=== PATIENT | female | born 1955 | race African-American/Black ===

== ENCOUNTER → 2016-10-21 | Outpatient (CLI) | payer MEDICARE, MEDICAID | LOC: WI 08:23 | PROVIDERS: ATTEND Internal Medicine | DX: C50.411 Malignant neoplasm of upper-outer quadrant of right female breast (principal); N64.4 Mastodynia; R22.9 Localized swelling, mass and lump, unspecified | CPT/HCPCS: 76642; G0204 ==

== ENCOUNTER → 2016-10-28 | Outpatient (CLI) | payer MEDICARE, MEDICAID | LOC: RAD 09:01 | PROVIDERS: ATTEND Surgery | DX: N64.4 Mastodynia (principal); Z85.3 Personal history of malignant neoplasm of breast ==

== ENCOUNTER → 2017-05-26 | Outpatient (CLI) | payer MEDICARE, MEDICAID ==
--- NOTE | 2017-05-26 19:24 | XCELERA REPORT ---
[address] [address] Transthoracic Echocardiogram Report Name: YURY MCCULLOUGH Age: 62 yrs Gender: Female : 1955 Patient Status: Outpatient Patient Location: Study Date: 05/26/2017 01:56 PM Height: 66 in Weight: 335 lb BSA: 2.5 m2 Reason For Study: HEART FAILURE Ordering Physician: BUTCH DIAZ Performed By: Agnes Mejía Interpretation Summary technicall y poor study, no apical 2 chamber view to assess biplane LVEF. Overall LVEF appears better than 65% (A2C view N/A) and no LV diastolic dysfunction based on Mitral inflow velocities. Mild MR with perhaps mild LA enlargement. RH impossible to assess, not visualised. RVSP not able to derice. Pt is335# at 5'6*. MMode/2D Measurements & Calculations RVDd: 3.0 cm LVIDd: 4.5 cm FS: 36.2 % Ao root diam: 3.5 cm IVSd: 1.2 cm LVIDs: 2.9 cm EDV(Teich): 94.8 ml LVPWd: 1.2 cm ESV(Teich): 32.3 ml Ao root area: 9.9 cm2 EF(Teich): 66.0 % LVOT diam: 2.4 cm LVOT area: 4.6 cm2 Doppler Measurements & Calculations MV E max ericka: MV dec slope: Ao V2 max: LV V1 max P.2 cm/sec 493.9 cm/sec2 125.3 cm/sec 6.2 mmHg MV A max ericka: MV dec time: Ao max PG: LV V1 max: 109.1 cm/sec 0.23 sec 6.3 mmHg 124.0 cm/sec MV E/A: 1.1 SONA(V,D): 4.6 cm2 PA V2 max: 89.5 cm/sec PA max P.2 mmHg Left Ventricle The left ventricle is normal in size. There is mild concentric left ventricular hypertrophy. The left ventricular ejection fraction is normal. Doppler measurements suggest normal left ventricular diastolic function. Not all wall segments were well visualized. There is no thrombus. Right Ventricle The right ventricle is not well visualized secondary to technical limitations. Atria Right atrium not well visualized secondary to technical limitations. The left atrium is mildly dilated. The interatrial septum is intact with no evidence for an atrial septal defect. Mitral Valve The mitral valve is normal in structure and function. There is no evidence of mitral valve prolapse. There is no mitral valve stenosis. There is a mild amount of mitral regurgitation. Aortic Valve The aortic valve is trileaflet. The aortic valve opens well. Cannot exclude aortic valvular vegetation. There is no aortic valve stenosis. No aortic regurgitation is present. Tricuspid Valve The tricuspid valve is not well visualized secondary to technical limitations. No tricuspid regurgitation. Pulmonic Valve The pulmonic valve is not well visualized. There is no pulmonic valvular regurgitation. Great Vessels The aortic root is normal size. Effusions Small pericardial effusion. I WMSI = 1.00 % Normal = 100 Segments Size X - Cannot 2 - 4 - 1-2 small Interpret 1 - Normal Hypokinetic 3 - AkineticDyskinetic 3-5 moderate 5 - 6-14 large Aneurysmal 15-16 diffuse : BUTCH DIAZ > Jeff Tafoya
== END ==
LOC: SP 13:16
PROVIDERS: ATTEND Family Medicine
DX: I50.9 Heart failure, unspecified (principal)
CPT/HCPCS: 93306

== ENCOUNTER → 2017-08-11 | Outpatient (CLI) | payer MEDICARE, MEDICAID ==
--- NOTE | 2017-08-11 12:29 | WOMENS IMAGING REPORT ---
EXAM DESCRIPTION: 3D DX MAMMO BILAT COMPLETED DATE/TIME: 08/11/2017 10:34 am REASON FOR STUDY: MALIGNANT NEOPLASM OF UPPER OUTER QUADRANT C50.411 MALIG NEOPLM OF UPPER-OUTER QU ADRANT OF RIGHT FEMALE COMPARISON: 10/21/2016, 07/20/2016, and 07/17/2015. TECHNIQUE: Standard craniocaudal and mediolateral oblique views of each breast recorded using digita l acquisition and breast tomosynthesis. Additional images of the right breast include true lateral images and compression magnification MLO a nd CC images. LIMITATIONS: None. FINDINGS: RIGHT BREAST MASSES: No suspicious masses. CALCIFICATIONS: No new or suspicious calcifications. ARCHITECTURAL DISTORTION: Stable surgical changes. DEVELOPING DENSITY: None. ASYMMETRY: None noted. OTHER: No other significant findings. LEFT BREAST MASSES: No suspicious masses. CALCIFICATIONS: No new or suspicious calcifications. ARCHITECTURAL DISTORTION: None. DEVELOPING DENSITY: None. ASYMMETRY: None noted. OTHER: No other significant finding. Read with the assistance of CAD: .[facility] - R2 Cenova Version 1.3 .[facility] - R2 Cenova Version 1.3 .[facility] - R2 Cenova Version 2.4 .[facility] - R2 Cenova Version 2.4 .[facility] - R2 [employer]ing Team Leader Version 9.2 IMPRESSION: Stable mammographic appearance of both breasts. Stable surgical changes in the right br east. No worrisome findings. BREAST DENSITY: b. There are scattered areas of fibroglandular density. BIRAD: 2 Benign findings. RECOMMENDATION: RECOMMENDED FOLLOW UP: Post lumpectomy protocol. COMMENT: The patient has been notified of the results by letter per SA requirements. Additional no tification policies are in place for contacting patient with suspicious or incomplete findings. Quality ID #[id number]: The [employer] recommends an annual screening mammogram for women aged 40 years or over. This facility utilizes a reminder system to ensure that all patients receive reminder letters, and/or direct phone calls for appointments. This includes reminders for routine scr eening mammograms, diagnostic mammograms, or other Breast Imaging Interventions when appropriate. Th is patient will be placed in the appropriate reminder system. The [employer] (ACR) has developed recommendations for screening MRI of the breast s in certain patient populations, to be used in conjunction with mammography. Breast MRI surveillanc e may be appropriate for women with more than 20% lifetime risk of developing breast cancer as deter mined by genetic testing, significant family history of the disease, or history of mantle radiation f or Hodgkins Disease. ACR Practice Guidelines 2008. DBT Technology DBT is a type of tomographic mammography. With conventional mammography, overlapping breast tissue ma y make lesions difficult to detect, even with good compression. DBT uses an x-ray tube that rotates a round the breast, taking images at different angles. These images are then combined to create thin sl ices of the breast that the radiologist can view as a 3D reconstruction. The [employer] unit can perform full-field digital mammograms (2D imaging); or DBT (3D imaging); or both, in a combination mode that quickly performs both the mammogram and the tomosynthesis scan while the breast is still compressed. PQRS 6045F: Fluoroscopic imaging is not utilized for breast tomosynthesis. TECHNICAL DOCUMENTATION: FINDING NUMBER: (1) ASSESSMENT: (1) JOB ID: [id number] [employer] All Rights Reserved
== END ==
LOC: WI 10:01
PROVIDERS: ATTEND Internal Medicine
DX: C50.411 Malignant neoplasm of upper-outer quadrant of right female breast (principal)
CPT/HCPCS: G0279; G0204; 77062; 77066

== ENCOUNTER 2017-11-20 14:41 | Inpatient (IN) | payer MEDICARE, MEDICAID ==
--- NOTE | 2017-11-20 15:20 | ER Document Report ---
ED General - General Chief Complaint: Palpitations Stated Complaint: BREATHING PROBLEMS Time Seen by Provider: 11/20/17 15:04 Mode of Arrival: Ambulatory Information source: Patient Notes: 62-year-old female with a history of atrial fibrillation, congestive heart failure, diabetes presents with complaint of heart palpitations and left arm pain. Patient states left arm pain started 2 days prior to arrival. She describes it as an aching intermittent pain that is not worse with movement. She states palpitations started 3 hours prior to arrival while at rest. She denies any chest pain, diaphoresis, lightheadedness. She does admit to nausea and associated shortness of breath which is normal for her and she does not feel it is worsened. Patient denies any recent illnesses. She has been taking her home medications regularly. She does take aspirin daily. Patient denies any new or changes in medication. She does not have current cardiology care. Her primary care physician is Dr. Negrete. TRAVEL OUTSIDE OF THE [place] IN LAST 30 DAYS: No - HPI Onset: Just prior to arrival Onset/Duration: Gradual Quality of pain: Achy Severity: Mild Associated symptoms: Nausea, Shortness of breath - At baseline. denies: Fever, Vomiting - Related Data Allergies/Adverse Reactions: naproxen [From Naprosyn] Allergy (Severe, Verified 11/20/17 15:15) FEELS "ON FIRE" Penicillins Allergy (Intermediate, Verified 11/20/17 15:15) broke out in white blisters niacin [Niacin] Allergy (Mild, Verified 11/20/17 15:15) "on fire" oxycodone HCl [From Percocet] Allergy (Mild, Verified 11/20/17 15:15) itchy propoxyphene napsylate [From Darvocet-N 100] Allergy (Mild, Verified 11/20/17 15 :15) itchy Past Medical History - Social History Smoking Status: Never Smoker Chew tobacco use (# tins/day): No Frequency of alcohol use: None Drug Abuse: None Family History: Reviewed & Not Pertinent, Other - No FH of DVT/PE Patient has suicidal ideation: No Patient has homicidal ideation: No - Past Medical History Cardiac Medical History: Reports: Hx Atrial Fibrillation, Hx Congestive Heart Failure, Hx Coronary Artery Disease, Hx Heart Attack - aug, Hx Hypercholesterolemia, Hx Hypertension Pulmonary Medical History: Denies: Hx Asthma, Hx Bronchitis, Hx COPD, Hx Pneumonia Neurological Medical History: Denies: Hx Cerebrovascular Accident, Hx Seizures Endocrine Medical History: Reports: Hx Diabetes Mellitus Type 2 Renal/ Medical History: Denies: Hx Peritoneal Dialysis Malignancy Medical History: Reports: Hx Breast Cancer Musculoskeltal Medical History: Reports Hx Arthritis - degenerative Psychiatric Medical History: Reports: Hx Depression Past Surgical History: Reports: Hx Breast Surgery - right lumpectomy, Hx Cardiac Catheterization - stent, Hx Section - x 2, Hx Orthopedic Surgery - GANGLION CYST. Denies: Hx Pacemaker - Immunizations Hx Diphtheria, Pertussis, Tetanus Vaccination: No Hx Pneumococcal Vaccination: 07/07/12 Review of Systems - Review of Systems Constitutional: Malaise. denies: Fever, Weight gain EENT: No symptoms reported Cardiovascular: Palpitations Respiratory: Short of breath Gastrointestinal: No symptoms reported Musculoskeletal: Other - Left arm pain Neurological/Psychological: No symptoms reported Physical Exam - Vital signs Vitals: Temp Pulse Resp BP Pulse Ox 98.4 F 105 H 18 178/79 H 98 11/20/17 14:45 11/20/17 14:45 11/20/17 14:45 11/20/17 14:45 11/20/17 14:45 Interpretation: Normal, Hypertensive, Tachycardic. No: Hypoxic - General General appearance: Appears well, Alert, Other - obese In distress: None - Respiratory Respiratory status: No respiratory distress. No: Respiratory distress Chest status: Nontender Breath sounds: Normal Chest palpation: Normal - Cardiovascular Rhythm: Irregularly irregular Heart sounds: Normal auscultation Murmur: No Pulses: Normal: Radial, Dorsalis pedis Normal capillary refill: Yes - Extremities General upper extremity: Normal inspection, Nontender, Normal color, Normal ROM , Normal temperature General lower extremity: Normal inspection, Nontender, Edema, Normal color, Normal ROM, Normal temperature, Normal weight bearing, Other - Nonpitting edema. No: Airam's sign Course - Re-evaluation Re-evalutation: 11/20/17 17:07 Spoke to family and patient regarding admission for CHF exacerbation and ACS rule out. They are agreeable at this time. Dr. Ruiz pagejeffrey. 11/20/17 22:06 Bedside ultrasound performed and showed no pericardial effusion. 62-year-old female with history of A. fib, congestive heart failure, CAD, diabetes presents with complaint of palpitations and left arm pain. Upon arrival vitals were reviewed. Patient is tachycardic initially. EKG was obtained and showed the patient to be in atrial fibrillation with controlled rate. Exam is significant for a morbidly obese female with nonpitting peripheral edema. She does not appear toxic or dehydrated and she is in no acute distress. Significant laboratory findings include an elevated BNP. She did receive IV Lasix. Because of the patient's comorbidities and previous AL the patient's complaint of nausea, increasing shortness of breath and left arm pain could be an anginal equivalent and warrants further workup. Patient is agreeable to admission. Laboratory 11/20/17 11/20/17 11/20/17 15:00 15:00 15:00 WBC 6.2 RBC 4.85 Hgb 13.2 Hct 40.7 MCV 84 MCH 27.2 MCHC 32.5 RDW 14.0 Plt Count 213 Seg Neutrophils % 60.3 Lymphocytes % 27.1 Monocytes % 10.1 Eosinophils % 1.6 Basophils % 0.9 Absolute Neutrophils 3.7 Absolute Lymphocytes 1.7 Absolute Monocytes 0.6 Absolute Eosinophils 0.1 Absolute Basophils 0.1 Sodium 142.9 Potassium 4.2 Chloride 111 H Carbon Dioxide 24 Anion Gap 8 BUN 19 Creatinine 0.97 Est GFR ( Amer) > 60 Est GFR (Non-Af Amer) 58 L Glucose 152 H POC Glucose Calcium 9.4 Phosphorus 2.8 Magnesium 1.8 Total Bilirubin 0.3 Direct Bilirubin 0.3 Neonat Total Bilirubin Not Reportable Neonat Direct Bilirubin Not Reportable Neonat Indirect Bili Not Reportable AST 18 ALT 17 Alkaline Phosphatase 65 Creatine Kinase 74 CK-MB (CK-2) 0.44 Troponin I < 0.012 NT-Pro-B Natriuret Pep 2010 H Total Protein 6.2 L Albumin 3.6 TSH Urine Color Urine Appearance Urine pH Ur Specific [place] Urine Protein Urine Glucose (UA) Urine Ketones Urine Blood Urine Nitrite Urine Bilirubin Urine Urobilinogen Ur Leukocyte Esterase Urine WBC (Auto) Urine RBC (Auto) Urine Bacteria (Auto) Squamous Epi Cells Auto Urine Mucus (Auto) Urine Ascorbic Acid 11/20/17 11/20/17 11/20/17 15:00 15:52 19:09 WBC RBC Hgb Hct MCV MCH MCHC RDW Plt Count Seg Neutrophils % Lymphocytes % Monocytes % Eosinophils % Basophils % Absolute Neutrophils Absolute Lymphocytes Absolute Monocytes Absolute Eosinophils Absolute Basophils Sodium Potassium Chloride Carbon Dioxide Anion Gap BUN Creatinine Est GFR ( Amer) Est GFR (Non-Af Amer) Glucose POC Glucose Calcium Phosphorus Magnesium Total Bilirubin Direct Bilirubin Neonat Total Bilirubin Neonat Direct Bilirubin Neonat Indirect Bili AST ALT Alkaline Phosphatase Creatine Kinase CK-MB (CK-2) Troponin I 0.013 NT-Pro-B Natriuret Pep Total Protein Albumin TSH 0.98 Urine Color YELLOW Urine Appearance CLEAR Urine pH 5.0 Ur Specific [place] 1.016 Urine Protein NEGATIVE Urine Glucose (UA) NEGATIVE Urine Ketones NEGATIVE Urine Blood NEGATIVE Urine Nitrite NEGATIVE Urine Bilirubin NEGATIVE Urine Urobilinogen 2.0 H Ur Leukocyte Esterase NEGATIVE Urine WBC (Auto) 10 Urine RBC (Auto) 1 Urine Bacteria (Auto) 3+ Squamous Epi Cells Auto 3 Urine Mucus (Auto) RARE Urine Ascorbic Acid NEGATIVE 11/20/17 11/20/17 11/20/17 19:09 19:09 21:39 WBC RBC Hgb Hct MCV MCH MCHC RDW Plt Count Seg Neutrophils % Lymphocytes % Monocytes % Eosinophils % Basophils % Absolute Neutrophils Absolute Lymphocytes Absolute Monocytes Absolute Eosinophils Absolute Basophils Sodium Potassium Chloride Carbon Dioxide Anion Gap BUN Creatinine Est GFR ( Amer) Est GFR (Non-Af Amer) Glucose POC Glucose 110 Calcium Phosphorus Magnesium Total Bilirubin Direct Bilirubin Neonat Total Bilirubin Neonat Direct Bilirubin Neonat Indirect Bili AST ALT Alkaline Phosphatase Creatine Kinase 70 CK-MB (CK-2) 0.47 Troponin I Cancelled NT-Pro-B Natriuret Pep Total Protein Albumin TSH Urine Color Urine Appearance Urine pH Ur Specific [place] Urine Protein Urine Glucose (UA) Urine Ketones Urine Blood Urine Nitrite Urine Bilirubin Urine Urobilinogen Ur Leukocyte Esterase Urine WBC (Auto) Urine RBC (Auto) Urine Bacteria (Auto) Squamous Epi Cells Auto Urine Mucus (Auto) Urine Ascorbic Acid Chest X-Ray 11/20/17 15:15 IMPRESSION: HEART ENLARGED WITHOUT FAILURE. NO OTHER SIGNIFICANT RADIOGRAPHIC FINDING IN THE CHEST. - Vital Signs Vital signs: Temp Pulse Resp BP Pulse Ox 97.7 F 72 17 174/93 H 100 11/20/17 21:35 11/20/17 21:35 11/20/17 21:35 11/20/17 21:35 11/20/17 21:35 - Laboratory Result Diagrams: 11/20/17 15:00 11/20/17 15:00 Laboratory results interpreted by me: 11/20/17 11/20/17 11/20/17 15:00 15:00 15:52 Chloride 111 H Est GFR (Non-Af Amer) 58 L Glucose 152 H NT-Pro-B Natriuret Pep 2010 H Total Protein 6.2 L Urine Urobilinogen 2.0 H Discharge - Discharge Clinical Impression: Shortness of breath, Palpitations, Left arm pain, Elevated brain natriuretic peptide (BNP) level CHF exacerbation Qualifiers: Heart failure type: unspecified Qualified Code(s): I50.9 - Heart failure, unspecified Condition: Good Disposition: ADMITTED OBSERVATION Admitting Provider: Sara Unit Admitted: Telemetry
[2017-11-20 15:32] LABS: ABSOLUTE BASOPHILS # (AUTO) 0.1 10^3/uL (0.0-0.2); ABSOLUTE EOSINOPHILS # (AUTO) 0.1 10^3/uL (0.0-0.6); ABSOLUTE LYMPHOCYTES (AUTO) 1.7 10^3/uL (0.5-4.7); ABSOLUTE MONOCYTES (AUTO) 0.6 10^3/uL (0.1-1.4); ABSOLUTE NEUT (AUTO) 3.7 10^3/uL (1.7-8.2); BASOPHILS % (AUTO) 0.9 % (0-2); EOSINOPHILS % (AUTO) 1.6 % (0-6); HEMATOCRIT 40.7 % (36.0-47.0); HEMOGLOBIN 13.2 g/dL (12.0-15.5); LYMPHOCYTES % (AUTO) 27.1 % (13-45); MEAN CORPUSCULAR HEMOGLOBIN 27.2 pg (27.0-33.4); MEAN CORPUSCULAR HGB CONC 32.5 g/dL (32.0-36.0); MEAN CORPUSCULAR VOLUME 84 fl (80-97); MONOCYTES % (AUTO) 10.1 % (3-13); PLATELET COUNT 213 10^3/uL (150-450); RED BLOOD COUNT 4.85 10^6/uL (3.72-5.28); SEGMENTED NEUTROPHILS % (AUTO) 60.3 % (42-78); TOTAL CELLS COUNTED % (AUTO) 100 %; WHITE BLOOD COUNT 6.2 10^3/uL (4.0-10.5)
--- NOTE | 2017-11-20 15:36 | RADIOLOGY REPORT (SQ) ---
EXAM DESCRIPTION: CHEST SINGLE VIEW COMPLETED DATE/TIME: 11/20/2017 3:25 pm REASON FOR STUDY: palpitations COMPARISON: 12/27/2013 NUMBER OF VIEWS: One view. TECHNIQUE: Single frontal radiographic view of the chest acquired. LIMITATIONS: None. FINDINGS: LUNGS AND PLEURA: No opacities, masses or pneumothorax. No pleural effusion. MEDIASTINUM AND HILAR STRUCTURES: No masses. Contour normal. HEART AND VASCULAR STRUCTURES: Heart enlarged without failure. Normal vasculature. BONES: No acute findings. HARDWARE: None in the chest. OTHER: No other significant finding. IMPRESSION: HEART ENLARGED WITHOUT FAILURE. NO OTHER SIGNIFICANT RADIOGRAPHIC FINDING IN THE CHEST. TECHNICAL DOCUMENTATION: JOB ID: [id number] [employer]- All Rights Reserved Reading location - IP/workstation name: [email or web address]
[2017-11-20 15:50] LABS: ALANINE AMINOTRANSFERASE 17 U/L (9-52); ALBUMIN 3.6 g/dL (3.5-5.0); ALKALINE PHOSPHATASE 65 U/L (38-126); ANION GAP 8 (5-19); ASPARTATE AMINO TRANSFERASE 18 U/L (14-36); BILIRUBIN,DIRECT 0.3 mg/dL (0.0-0.4); BILIRUBIN,TOTAL 0.3 mg/dL (0.2-1.3); BLOOD UREA NITROGEN 19 mg/dL (7-20); CALCIUM 9.4 mg/dL (8.4-10.2); CARBON DIOXIDE 24 mmol/L (22-30); CHLORIDE 111 mmol/L (98-107); CREATINE KINASE 74 U/L (30-135); GLUCOSE 152 mg/dL (75-110); PHOSPHORUS 2.8 mg/dL (2.5-4.5); POTASSIUM 4.2 mmol/L (3.6-5.0); SODIUM 142.9 mmol/L (137-145); TOTAL PROTEIN 6.2 g/dL (6.3-8.2)
[2017-11-20 16:02] LABS: CREATINE KINASE MB 0.44 ng/mL (<4.55); NT PRO BNP 2010 pg/mL (5-900)
[2017-11-20 16:10] LABS: APPEARANCE,URINE CLEAR; BILIRUBIN,URINE NEGATIVE (NEGATIVE); COLOR,URINE YELLOW; GLUCOSE, URINE NEGATIVE (NEGATIVE); KETONES,URINE NEGATIVE (NEGATIVE); LEUKOCYTE ESTERASE,URINE NEGATIVE (NEGATIVE); NITRITE,URINE NEGATIVE (NEGATIVE); PROTEIN,URINE NEGATIVE (NEGATIVE); URINE SPECIFIC GRAVITY 1.016
[2017-11-20 16:13] LABS: TROPONIN I < 0.012 ng/mL
--- NOTE | 2017-11-20 16:26 | EKG REPORT ---
SEVERITY:- ABNORMAL ECG - ATRIAL FIBRILLATION, V-RATE 64-123 VENTRICULAR PREMATURE COMPLEX LEFT AXIS DEVIATION PROBABLE LVH WITH SECONDARY REPOL ABNRM : Confirmed by: Jeff Tafoya MD 20-Nov-2017 16:25:25
[2017-11-20] MEDS ORDERED: FUROSEMIDE INJ/PF 40 MG/4 ML SDV IV ONE (17:00)
--- NOTE | 2017-11-20 19:10 | PDOC H&P ---
History of Present Illness Admission Date/PCP: 11/20/17 17:26 KATHRYN DIAZ MD Patient complains of: Worsening shortness of breath and palpitation History of Present Illness: YURY MCCULLOUGH is a 62 year old female of Dr. Kathryn Diaz who presented to the ED earlier today with worsening shortness of breath and palpitation over last 3-4 days. Patient reported compliance with her medication and dietary restrictions. She reported associated PND and sleeping in recliner chair due to difficulty sleeping supine. She reported new onset left upper extremities pain but denies any chest pain, diaphoresis, lightheadedness. She has chronic bilateral leg swelling. Patient reported nausea but vomiting. No diarrhea but admitted to medication related constipation. Her morbidities include chronic Atrial fibrillation, Congestive Heart Failure, Hypertension, CAD with old [place] and stent angioplasty, Diabetes Mellitus Type 2, Hypercholesterolemia, Depression, Breast cancer s/p lumpectomy, and Morbid obesity. Her initial evaluation in the ED was significant for elevated BNP and concern for acute decompensated CHF. She was treated with IV Lasix and she reported some improvement at the time of my evaluation. Past Medical History Cardiac Medical History: Reports: Atrial Fibrillation, Congestive Heart Failure , Coronary Artery Disease, Myocardial Infarction - aug, Hyperlipidema, Hypertension Pulmonary Medical History: Denies: Asthma, Bronchitis, Chronic Obstructive Pulmonary Disease (COPD), Pneumonia Neurological Medical History: Denies: Seizures Endocrine Medical History: Reports: Diabetes Mellitus Type 2 Malignancy Medical History: Reports: Breast Cancer Musculoskeltal Medical History: Reports: Arthritis - degenerative Psychiatric Medical History: Reports: Depression Hematology: Denies: Anemia Past Surgical History Past Surgical History: Reports: Cardiac Catheterization - stent, Section - x 2, Orthopedic Surgery - G[facility]ST Denies: Pacemaker Social History Smoking Status: Never Smoker Family History Family History: Reviewed & Not Pertinent, Other - No FH of DVT/PE Parental Family History Reviewed: Yes Children Family History Reviewed: Yes Sibling(s) Family History Reviewed.: Yes Medication/Allergy Home Medications: Atorvastatin Calcium [Lipitor 40 mg Tablet] 40 mg PO QHS 06/10/12 Clonidine HCl [Catapres 0.3 mg Tablet] 0.3 mg PO Q8H 06/10/12 Hydralazine HCl [Apresoline 50 mg Tablet] 25 mg PO QID 06/10/12 Hydrochlorothiazide 25 mg PO DAILY 06/10/12 Insulin Aspart [Novolog] 30 unit SQ TID 06/10/12 Insulin Glargine,Hum.rec.anlog [Lantus] 40 unit SQ QHS 06/10/12 Magnesium Oxide 400 mg PO DAILY 06/10/12 Omeprazole 20 mg PO DAILY 06/10/12 Valsartan [Diovan] 320 mg PO DAILY 06/10/12 Metformin HCl [Glumetza] 1,000 mg PO BID 11/03/12 Tamoxifen Citrate [Nolvadex 10 mg Tablet] 20 mg PO DAILY 01/09/13 Aspirin [Aspirin 81 mg Chewable Tablet] 81 mg PO DAILY 03/14/13 Potassium Chloride [Klor-Con 10 Meq Tablet.sa] 10 meq PO DAILY 03/14/13 Diltiazem HCl [Diltzac Er] 360 mg PO DAILY 03/31/13 Furosemide [Lasix 20 mg Tablet] 20 mg PO BID 03/31/13 Warfarin Sodium [Coumadin] 14 mg PO DAILY 03/31/13 Metoprolol Succinate [Toprol XL 100 mg Tablet] 100 mg PO DAILY 02/25/15 Allergies/Adverse Reactions: naproxen [From Naprosyn] Allergy (Severe, Verified 11/20/17 15:15) FEELS "ON FIRE" Penicillins Allergy (Intermediate, Verified 11/20/17 15:15) broke out in white blisters niacin [Niacin] Allergy (Mild, Verified 11/20/17 15:15) "on fire" oxycodone HCl [From Percocet] Allergy (Mild, Verified 11/20/17 15:15) itchy propoxyphene napsylate [From Darvocet-N 100] Allergy (Mild, Verified 11/20/17 15 :15) itchy Review of Systems Constitutional: ABSENT: chills, fever(s), headache(s), weight gain, weight loss Eyes: ABSENT: visual disturbances Ears: ABSENT: hearing changes Nose, Mouth, and Throat: ABSENT: as per HPI, headache(s), mouth pain, sore throat, vertigo, other Cardiovascular: PRESENT: dyspnea on exertion, edema, orthropnea, palpitations. ABSENT: chest pain Respiratory: PRESENT: dyspnea. ABSENT: cough, hemoptysis, sputum Gastrointestinal: PRESENT: nausea. ABSENT: as per HPI, abdominal pain, bloating , coffee ground emesis, constipation, diarrhea, dysphagia, heartburn, hematemesis, hematochezia, melena, vomiting, other Genitourinary: ABSENT: dysuria, hematuria Musculoskeletal: ABSENT: joint swelling Integumentary: ABSENT: diaphoresis, rash, wounds Neurological: ABSENT: abnormal gait, abnormal speech, confusion, dizziness, focal weakness, syncope Endocrine: ABSENT: cold intolerance, heat intolerance, polydipsia, polyuria Hematologic/Lymphatic: ABSENT: easy bleeding, easy bruising, lymphadenopathy Allergic/Immunologic: ABSENT: seasonal rhinorrhea Physical Exam Vital Signs: Temp Pulse Resp BP Pulse Ox 98.4 F 105 H 16 144/74 H 97 11/20/17 14:45 11/20/17 14:45 11/20/17 18:01 11/20/17 18:01 11/20/17 18:01 General appearance: PRESENT: mild distress - due to dyspnea, morbidly obese Head exam: PRESENT: atraumatic, normocephalic Eye exam: PRESENT: conjunctiva pink, EOMI, PERRLA. ABSENT: scleral icterus Ear exam: PRESENT: normal external ear exam Mouth exam: PRESENT: moist, tongue midline Throat exam: ABSENT: post pharyngeal erythema, tonsillar erythema, tonsillar exudate, tonsillogmegaly, other Neck exam: PRESENT: full ROM. ABSENT: carotid bruit, JVD, lymphadenopathy, thyromegaly Respiratory exam: PRESENT: clear to auscultation johanna, decreased breath sounds - at lung bases Cardiovascular exam: PRESENT: irregular rhythm, +S1, +S2. ABSENT: diastolic murmur, rubs, systolic murmur Vascular exam: PRESENT: normal capillary refill. ABSENT: pallor GI/Abdominal exam: PRESENT: normal bowel sounds, soft. ABSENT: distended, guarding, mass, organolmegaly, rebound, tenderness Rectal exam: PRESENT: deferred Extremities exam: PRESENT: pedal edema - bilateral chronic edema Musculoskeletal exam: PRESENT: full ROM Neurological exam: PRESENT: alert, awake, oriented to person, oriented to place , oriented to time, oriented to situation, CN II-XII grossly intact. ABSENT: motor sensory deficit Psychiatric exam: PRESENT: appropriate affect, normal mood. ABSENT: homicidal ideation, suicidal ideation Skin exam: PRESENT: dry, intact, warm. ABSENT: cyanosis, rash Results Laboratory Results: I reviewed her lab results on [employer] and form significant portion of my decision making. Impressions: Chest X-Ray 11/20/17 15:15 IMPRESSION: HEART ENLARGED WITHOUT FAILURE. NO OTHER SIGNIFICANT RADIOGRAPHIC FINDING IN THE CHEST. Assessment & Plan - Diagnosis (1) CHF, acute on chronic Qualifiers: Heart failure type: unspecified Qualified Code(s): I50.9 - Heart failure, unspecified Plan: See covering attending physician orders. (2) Left arm pain Is this a current diagnosis for this admission?: Yes Plan: See covering attending physician orders. (3) CAD S/P percutaneous coronary angioplasty Is this a current diagnosis for this admission?: Yes Plan: See covering attending physician orders. (4) Old myocardial infarction Is this a current diagnosis for this admission?: Yes Plan: See covering attending physician orders. (5) Chronic atrial fibrillation Is this a current diagnosis for this admission?: Yes Plan: See covering attending physician orders. (6) Hypertension Qualifiers: Hypertension type: essential hypertension Qualified Code(s): I10 - Essential (primary) hypertension Is this a current diagnosis for this admission?: Yes Plan: See covering attending physician orders. (7) Diabetes mellitus type 2 in obese Is this a current diagnosis for this admission?: Yes Plan: See covering attending physician orders. (8) Hyperlipidemia associated with type 2 diabetes mellitus Is this a current diagnosis for this admission?: Yes Plan: See covering attending physician orders. (9) Morbid (severe) obesity with alveolar hypoventilation Is this a current diagnosis for this admission?: Yes Plan: See covering attending physician orders. (10) Depression Qualifiers: Depression Type: major depressive disorder Is this a current diagnosis for this admission?: Yes Plan: See covering attending physician orders. - Time Time Spent: 50 to 70 Minutes Medications reviewed and adjusted accordingly: Yes Anticipated discharge: Home with Homehealth Within: Other - Inpatient Certification Based on my medical assessment, after consideration of the patient's comorbidities, presenting symptoms, or acuity I expect that the services needed warrant INPATIENT care.: Yes I certify that my determination is in accordance with my understanding of Medicare's requirements for reasonable and necessary INPATIENT services [42 CFR 412.3e].: Yes Medical Necessity: Need Close Monitoring Due to Risk of Patient Decompensation, Need For Continuous Telemetry Monitoring, Need for Nebulizer Therapy and Monitoring of Response, Risk of Complication if Not Cared For in Hospital Post Hospital Care: D/C Abalone Diver Documentation - Plan Summary Plan Summary: See covering attending physician orders.
[2017-11-20] MEDS ORDERED: INSULIN LISPRO 100 UNIT/ML 3 ML VIAL SUBCUT PRN (19:12)
[2017-11-20] MEDS ORDERED: DEXTROSE 50%-WATER 25 GM/50 ML DISP.SYRIN IV PRN ×2 (19:12)
[2017-11-20] MEDS ORDERED: DEXTROSE 40% GEL 15 GM TUBE PO PRN ×2 (19:12)
[2017-11-20] MEDS ORDERED: GLUCAGON,HUMAN RECOMB 1 MG INJ IM PRN (19:12)
[2017-11-20 22:24] LABS: INTERNATIONAL RATION (INR) 2.17; PARTIAL THROMBOPLASTIN TIME 36.5 SEC (23.5-35.8); PROTHROMBIN TIME 25.3 SEC (11.4-15.4)
[2017-11-20] MEDS ORDERED: METOPROLOL TARTRATE 100 MG TABLET PO ONE (23:59)
[2017-11-20] MEDS ORDERED: ATORVASTATIN CALCIUM 40 MG TABLET PO ONE (23:59)
[2017-11-20] MEDS ORDERED: INSULIN GLARGINE,HUM.REC.ANLOG 1,000 UNIT/10 ML UNIT SUBCUT ONE (23:59)
[2017-11-20] MEDS ORDERED: WARFARIN SODIUM 5 MG TABLET PO ONE (23:59)
[2017-11-20] MEDS ORDERED: HYDRALAZINE HCL 25 MG TABLET PO ONE (23:59)
[2017-11-20] MEDS ORDERED: CLONIDINE HCL 0.1 MG TABLET PO ONE (23:59)
[2017-11-20] MEDS ORDERED: VALSARTAN 160 MG TABLET PO ONE (23:59)
[2017-11-21 02:08] LABS: CREATINE KINASE MB 0.58 ng/mL (<4.55)
[2017-11-21 02:09] LABS: TROPONIN I < 0.012 ng/mL
[2017-11-21] MEDS: CLONIDINE HCL 0.1 MG TABLET PO SCH ×3 (05:16→21:30)
[2017-11-21] MEDS ORDERED: LANSOPRAZOLE 30 MG TAB.RAP.DR PO SCH (06:00)
[2017-11-21 06:15] LABS: ABSOLUTE BASOPHILS # (AUTO) 0.1 10^3/uL (0.0-0.2); ABSOLUTE EOSINOPHILS # (AUTO) 0.1 10^3/uL (0.0-0.6); ABSOLUTE LYMPHOCYTES (AUTO) 1.7 10^3/uL (0.5-4.7); ABSOLUTE MONOCYTES (AUTO) 0.9 10^3/uL (0.1-1.4); ABSOLUTE NEUT (AUTO) 4.1 10^3/uL (1.7-8.2); HEMATOCRIT 37.6 % (36.0-47.0); HEMOGLOBIN 12.1 g/dL (12.0-15.5); LYMPHOCYTES % (AUTO) 24.7 % (13-45); MEAN CORPUSCULAR HEMOGLOBIN 27.1 pg (27.0-33.4); MEAN CORPUSCULAR HGB CONC 32.3 g/dL (32.0-36.0); MEAN CORPUSCULAR VOLUME 84 fl (80-97); MONOCYTES % (AUTO) 12.5 % (3-13); PLATELET COUNT 191 10^3/uL (150-450); RED BLOOD COUNT 4.48 10^6/uL (3.72-5.28); RED CELL DISTRIBUTION WIDTH 14.2 % (11.5-14.0); SEGMENTED NEUTROPHILS % (AUTO) 59.8 % (42-78); TOTAL CELLS COUNTED % (AUTO) 100 %; WHITE BLOOD COUNT 6.9 10^3/uL (4.0-10.5)
[2017-11-21 06:59] LABS: CREATINE KINASE MB 0.41 ng/mL (<4.55); TROPONIN I 0.013 ng/mL
[2017-11-21 07:21] LABS: ALANINE AMINOTRANSFERASE 22 U/L (9-52); ALBUMIN 3.3 g/dL (3.5-5.0); ALKALINE PHOSPHATASE 52 U/L (38-126); ANION GAP 10 (5-19); ASPARTATE AMINO TRANSFERASE 15 U/L (14-36); BILIRUBIN,DIRECT 0.1 mg/dL (0.0-0.4); BILIRUBIN,TOTAL 0.4 mg/dL (0.2-1.3); BLOOD UREA NITROGEN 20 mg/dL (7-20); CALCIUM 9.6 mg/dL (8.4-10.2); CARBON DIOXIDE 24 mmol/L (22-30); CHLORIDE 108 mmol/L (98-107); CHOLESTEROL 135.78 mg/dL (0-200); CREATINE KINASE 70 U/L (30-135); GLUCOSE 127 mg/dL (75-110); POTASSIUM 4.2 mmol/L (3.6-5.0); SODIUM 141.6 mmol/L (137-145); TOTAL PROTEIN 5.4 g/dL (6.3-8.2); TRIGLYCERIDES 136 mg/dL (<150)
[2017-11-21 07:32] LABS: DIRECT LDL 80 mg/dL (<100)
[2017-11-21] MEDS: METFORMIN HCL 500 MG TABLET PO SCH ×2 (08:37→17:34)
[2017-11-21] MEDS: INSULIN LISPRO 100 UNIT/ML 3 ML VIAL SUBCUT SCH ×3 (08:37→17:34)
[2017-11-21] MEDS: MAGNESIUM OXIDE 400 MG TABLET PO SCH (09:08)
[2017-11-21] MEDS: POTASSIUM CHLORIDE 10 MEQ TABLET.SA PO SCH (09:08)
[2017-11-21] MEDS: METOPROLOL TARTRATE 100 MG TABLET PO SCH ×2 (09:09→21:30)
[2017-11-21] MEDS: ASPIRIN 81 MG TABLET, CHEWABLE PO SCH (09:09)
[2017-11-21] MEDS: LANSOPRAZOLE 15 MG TAB.RAP.DR PO SCH (09:10)
[2017-11-21] MEDS: HYDRALAZINE HCL 25 MG TABLET PO SCH ×2 (09:10→21:30)
[2017-11-21] MEDS: VALSARTAN 160 MG TABLET PO SCH (09:10)
[2017-11-21] MEDS ORDERED: INSULIN ASPART 30 UNIT SQ SCH (10:00)
[2017-11-21] MEDS: ACETAMINOPHEN 325 MG TABLET PO PRN (15:42)
--- NOTE | 2017-11-21 17:13 | PDOC PROGRESS REPORT ---
Subjective Progress Note for:: 11/21/17 Subjective:: No chest pain. Left arm pain resolved. No difficulty with breathing. N o nausea , vomiting or abdominal pain. Noncompliance with dietary choice noted by nursing staff. Reason For Visit: ACUTE ON CHRONIC CHF, LEFT ARM PAIN R/O ACS Physical Exam Vital Signs: Temp Pulse Resp BP Pulse Ox 98.1 F 85 20 126/64 H 99 11/21/17 15:20 11/21/17 15:20 11/21/17 15:20 11/21/17 15:20 11/21/17 15:20 Intake & Output 11/20/17 11/21/17 11/22/17 06:59 06:59 06:59 Intake Total 200 Output Total 400 Balance -200 Weight 152.6 kg General appearance: PRESENT: no acute distress, morbidly obese Head exam: PRESENT: atraumatic, normocephalic Eye exam: PRESENT: conjunctiva pink, EOMI, PERRLA. ABSENT: scleral icterus Mouth exam: PRESENT: moist Respiratory exam: PRESENT: clear to auscultation johanna, decreased breath sounds - at lung bases Cardiovascular exam: PRESENT: RRR. ABSENT: diastolic murmur, rubs, systolic murmur Vascular exam: PRESENT: normal capillary refill. ABSENT: pallor GI/Abdominal exam: PRESENT: normal bowel sounds, soft. ABSENT: distended, guarding, mass, organolmegaly, rebound, tenderness Extremities exam: PRESENT: pedal edema - bilateral with chronic stasis skin changes Neurological exam: PRESENT: alert, awake, oriented to person, oriented to place , oriented to time, oriented to situation, CN II-XII grossly intact. ABSENT: motor sensory deficit Psychiatric exam: PRESENT: appropriate affect, normal mood. ABSENT: homicidal ideation, suicidal ideation Skin exam: PRESENT: dry, intact, warm. ABSENT: cyanosis, rash Results Laboratory Results: 11/21/17 05:58 11/21/17 05:58 11/21/17 11/21/17 05:58 05:58 WBC 6.9 RBC 4.48 Hgb 12.1 Hct 37.6 MCV 84 MCH 27.1 MCHC 32.3 RDW 14.2 H Plt Count 191 Seg Neutrophils % 59.8 Lymphocytes % 24.7 Monocytes % 12.5 Eosinophils % 2.0 Basophils % 1.0 Absolute Neutrophils 4.1 Absolute Lymphocytes 1.7 Absolute Monocytes 0.9 Absolute Eosinophils 0.1 Absolute Basophils 0.1 Sodium 141.6 Potassium 4.2 Chloride 108 H Carbon Dioxide 24 Anion Gap 10 BUN 20 Creatinine 0.98 Est GFR ( Amer) > 60 Est GFR (Non-Af Amer) 58 L Glucose 127 H Calcium 9.6 Total Bilirubin 0.4 AST 15 ALT 22 Alkaline Phosphatase 52 Total Protein 5.4 L Albumin 3.3 L Triglycerides 136 Cholesterol 135.78 LDL Cholesterol Direct 80 VLDL Cholesterol 27.0 HDL Cholesterol 36 L 11/20/17 11/20/17 11/20/17 19:09 19:09 19:09 Creatine Kinase 70 CK-MB (CK-2) 0.47 Troponin I 0.013 Cancelled 11/21/17 11/21/17 11/21/17 01:29 01:29 05:58 Creatine Kinase 79 70 CK-MB (CK-2) 0.58 Troponin I < 0.012 11/21/17 05:58 Creatine Kinase CK-MB (CK-2) 0.41 Troponin I 0.013 Impressions: Chest X-Ray 11/20/17 15:15 IMPRESSION: HEART ENLARGED WITHOUT FAILURE. NO OTHER SIGNIFICANT RADIOGRAPHIC FINDING IN THE CHEST. Assessment & Plan - Diagnosis (1) CHF, acute on chronic Qualifiers: Heart failure type: unspecified Qualified Code(s): I50.9 - Heart failure, unspecified (2) Left arm pain Is this a current diagnosis for this admission?: Yes (3) CAD S/P percutaneous coronary angioplasty Is this a current diagnosis for this admission?: Yes (4) Old myocardial infarction Is this a current diagnosis for this admission?: Yes (5) Chronic atrial fibrillation Is this a current diagnosis for this admission?: Yes (6) Hypertension Qualifiers: Hypertension type: essential hypertension Qualified Code(s): I10 - Essential (primary) hypertension Is this a current diagnosis for this admission?: Yes (7) Diabetes mellitus type 2 in obese Is this a current diagnosis for this admission?: Yes (8) Hyperlipidemia associated with type 2 diabetes mellitus Is this a current diagnosis for this admission?: Yes (9) Morbid (severe) obesity with alveolar hypoventilation Is this a current diagnosis for this admission?: Yes (10) Depression Qualifiers: Depression Type: major depressive disorder Is this a current diagnosis for this admission?: Yes - Time Time Spent with patient: 25-34 minutes Medications reviewed and adjusted accordingly: Yes Anticipated discharge: Home - Inpatient Certification Based on my medical assessment, after consideration of the patient's comorbidities, presenting symptoms, or acuity I expect that the services needed warrant INPATIENT care.: Yes I certify that my determination is in accordance with my understanding of Medicare's requirements for reasonable and necessary INPATIENT services [42 CFR 412.3e].: Yes Medical Necessity: Need Close Monitoring Due to Risk of Patient Decompensation, Need For Continuous Telemetry Monitoring, Risk of Complication if Not Cared For in Hospital Post Hospital Care: D/C Musculoskeletal Physician Documentation - Plan Summary Plan Summary: Continue current medication management management. She will receive repeat dose of IV Lasix 40 mg 1 dose today. She fluid will be restricted to 1200ml/day. Her complete TTE completed on 05/26/2017 was not in support of chronic CHF. Her symptoms may be related to morbid obesity related hypoventilation syndrome.
[2017-11-21] MEDS ORDERED: FUROSEMIDE INJ/PF 40 MG/4 ML SDV IV ONE (17:30)
[2017-11-21] MEDS: ATORVASTATIN CALCIUM 40 MG TABLET PO SCH (21:30)
[2017-11-21] MEDS: WARFARIN SODIUM 5 MG TABLET PO SCH (21:30)
[2017-11-21] MEDS: INSULIN GLARGINE,HUM.REC.ANLOG 300 UNIT/3 ML INSULN.PEN SUBCUT SCH (21:30)
[2017-11-21] MEDS ORDERED: (PENDING PHARMACY ID) (Warfarin Sodium [Coumadin] 10 MG) PO SCH (22:00)
[2017-11-22] MEDS: CLONIDINE HCL 0.1 MG TABLET PO SCH ×3 (05:56→21:22)
[2017-11-22] MEDS: INSULIN LISPRO 100 UNIT/ML 3 ML VIAL SUBCUT SCH ×3 (08:44→17:29)
[2017-11-22] MEDS: METFORMIN HCL 500 MG TABLET PO SCH ×2 (08:44→17:26)
[2017-11-22] MEDS: MAGNESIUM OXIDE 400 MG TABLET PO SCH (09:27)
[2017-11-22] MEDS: POTASSIUM CHLORIDE 10 MEQ TABLET.SA PO SCH (09:27)
[2017-11-22] MEDS: HYDRALAZINE HCL 50 MG TABLET PO SCH ×2 (09:28→21:23)
[2017-11-22] MEDS: LANSOPRAZOLE 15 MG TAB.RAP.DR PO SCH (09:28)
[2017-11-22] MEDS: ASPIRIN 81 MG TABLET, CHEWABLE PO SCH (09:28)
[2017-11-22] MEDS: METOPROLOL TARTRATE 100 MG TABLET PO SCH ×2 (09:29→21:23)
[2017-11-22] MEDS: VALSARTAN 160 MG TABLET PO SCH (09:29)
[2017-11-22] MEDS: FUROSEMIDE INJ/PF 40 MG/4 ML SDV IV SCH (09:35)
--- NOTE | 2017-11-22 14:02 | PDOC PROGRESS REPORT ---
Subjective Progress Note for:: 11/22/17 Subjective:: This is 62-year-old females with a known history of the chronic A. 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 ABSENT: scleral icterus Ear exam: PRESENT: normal external ear exam Mouth exam: PRESENT: moist, tongue midline Neck exam: PRESENT: full ROM. ABSENT: carotid bruit, JVD, lymphadenopathy, thyromegaly Respiratory exam: PRESENT: clear to auscultation johanna Cardiovascular exam: PRESENT: RRR. ABSENT: diastolic murmur, rubs, systolic murmur Pulses: PRESENT: normal dorsalis pedis pul, +2 pedal pulses bilateral Vascular exam: PRESENT: normal capillary refill GI/Abdominal exam: PRESENT: normal bowel sounds, soft. ABSENT: distended, guarding, mass, organolmegaly, rebound, tenderness Rectal exam: PRESENT: deferred Extremities exam: PRESENT: pedal edema Neurological exam: PRESENT: alert, awake, oriented to person, oriented to place , oriented to time, oriented to situation, CN II-XII grossly intact. ABSENT: motor sensory deficit Psychiatric exam: PRESENT: appropriate affect, normal mood. ABSENT: homicidal ideation, suicidal ideation Skin exam: PRESENT: dry, intact, warm. ABSENT: cyanosis, rash Results Laboratory Results: 11/21/17 05:58 11/21/17 05:58 11/20/17 11/20/17 11/20/17 19:09 19:09 19:09 Creatine Kinase 70 CK-MB (CK-2) 0.47 Troponin I 0.013 Cancelled 11/21/17 11/21/17 11/21/17 01:29 01:29 05:58 Creatine Kinase 79 70 CK-MB (CK-2) 0.58 Troponin I < 0.012 11/21/17 05:58 Creatine Kinase CK-MB (CK-2) 0.41 Troponin I 0.013 Impressions: Chest X-Ray 11/20/17 15:15 IMPRESSION: HEART ENLARGED WITHOUT FAILURE. NO OTHER SIGNIFICANT RADIOGRAPHIC FINDING IN THE CHEST. Assessment & Plan - Diagnosis (1) CAD S/P percutaneous coronary angioplasty Is this a current diagnosis for this admission?: Yes (2) CHF, acute on chronic Qualifiers: Heart failure type: unspecified Qualified Code(s): I50.9 - Heart failure, unspecified (3) Chronic atrial fibrillation Is this a current diagnosis for this admission?: Yes (4) Diabetes mellitus type 2 in obese Is this a current diagnosis for this admission?: Yes (5) Hypertension Qualifiers: Hypertension type: essential hypertension Qualified Code(s): I10 - Essential (primary) hypertension Is this a current diagnosis for this admission?: Yes (6) Morbid (severe) obesity with alveolar hypoventilation Is this a current diagnosis for this admission?: Yes (7) Palpitations Is this a current diagnosis for this admission?: Yes (8) Shortness of breath Is this a current diagnosis for this admission?: Yes - Time Time Spent with patient: 15-24 minutes Medications reviewed and adjusted accordingly: Yes Anticipated discharge: Home, Other Within: Other - Inpatient Certification Medical Necessity: Need Close Monitoring Due to Risk of Patient Decompensation Post Hospital Care: D/C Lip Of Shank Cutter Documentation - Plan Summary Plan Summary: Will get the 2D echo and consult the cardiology and also get the CT angiogram
--- NOTE | 2017-11-22 16:19 | RADIOLOGY REPORT (SQ) ---
EXAM DESCRIPTION: CTA CHEST COMPLETED DATE/TIME: 11/22/2017 4:06 pm REASON FOR STUDY: sob I48.2 CHRONIC ATRIAL FIBRILLATION E10.65 TYPE 1 DIABETES MELLITUS WITH HYPER GLYCEMIA I50.22 CHRONIC SYSTOLIC (CONGESTIVE) HEART FAILURE COMPARISON: Chest x-ray dated 11/20/2017 TECHNIQUE: CT scan of the chest performed using helical scanning technique with dynamic intravenous contrast injection. Images reviewed with lung, soft tissue and bone windows. Reconstructed coronal and sagittal MPR images reviewed. Additional 3 dimensional post-processing performed to develop Maximal Intensity Projection images (HI P). All images stored on PACS. All CT scanners at this facility use dose modulation, iterative reconstruction, and/or weight based d osing when appropriate to reduce radiation dose to as low as reasonably achievable (ALARA). [facility]: Dose Right [facility]: CareDose [facility]: Dose Right [facility]: Teradose 4D [facility]: Constant Therapy CONTRAST TYPE AND DOSE: contrast/concentration: Isovue 370.00 mg/ml; Total Contrast Delivered: 79.0 ml; Total Saline Delivered: 87.0 ml Contrast bolus optimized for the pulmonary arteries. Not diagnostic for the aorta. RENAL FUNCTION: Creatinine 0.98 RADIATION DOSE: CT Rad equipment meets quality standard of care and radiation dose reduction techniq ues were employed. CTDIvol: 15.5 - 26.3 mGy. DLP: 594 mGy-cm. . LIMITATIONS: None. FINDINGS: LUNGS AND PLEURA: No masses, infiltrates, pneumothorax. No pleural effusions, calcificati ons. AORTA AND GREAT VESSELS: No aneurysm. Contrast bolus not optimized for the aorta. HEART: There is some thickening of the pericardium anteriorly suggesting a small pericardial effusion . No significant coronary artery calcifications. PULMONARY ARTERIES: No emboli visualized in the main pulmonary arteries or the segmental branches. HILAR AND MEDIASTINAL STRUCTURES: No identified masses or abnormal nodes. HARDWARE: None in the chest. UPPER ABDOMEN: No significant findings. Limited exam. THYROID AND OTHER SOFT TISSUES: There is enlargement of the thyroid gland suggesting a thyroid goiter . No adenopathy is seen. BONES: No acute or significant finding. 3D MIPS: Confirm above findings. OTHER: No other significant finding. IMPRESSION: No acute consolidations or pleural effusions. NO PULMONARY EMBOLI. Other findings as no yennifer above. COMMENT: Quality ID # [id number]: Final reports with documentation of one or more dose reduction techniques (e.g., Automated exposure control, adjustment of the mA and/or kV according to patient size, use of iterative reconstruction technique) TECHNICAL DOCUMENTATION: JOB ID: [id number] [employer]- All Rights Reserved Reading location - IP/workstation name: [email or web address]
[2017-11-22] MEDS: ACETAMINOPHEN 325 MG TABLET PO PRN (19:38)
[2017-11-22] MEDS: WARFARIN SODIUM 5 MG TABLET PO SCH (21:22)
[2017-11-22] MEDS: ATORVASTATIN CALCIUM 40 MG TABLET PO SCH (21:22)
[2017-11-22] MEDS: INSULIN GLARGINE,HUM.REC.ANLOG 300 UNIT/3 ML INSULN.PEN SUBCUT SCH (21:25)
[2017-11-23] MEDS: CLONIDINE HCL 0.1 MG TABLET PO SCH ×3 (04:58→22:40)
[2017-11-23 06:41] LABS: ABSOLUTE EOSINOPHILS # (AUTO) 0.1 10^3/uL (0.0-0.6); ABSOLUTE LYMPHOCYTES (AUTO) 1.3 10^3/uL (0.5-4.7); ABSOLUTE MONOCYTES (AUTO) 0.7 10^3/uL (0.1-1.4); ABSOLUTE NEUT (AUTO) 2.6 10^3/uL (1.7-8.2); EOSINOPHILS % (AUTO) 1.9 % (0-6); HEMATOCRIT 39.7 % (36.0-47.0); HEMOGLOBIN 12.8 g/dL (12.0-15.5); LYMPHOCYTES % (AUTO) 26.9 % (13-45); MEAN CORPUSCULAR HEMOGLOBIN 27.2 pg (27.0-33.4); MEAN CORPUSCULAR HGB CONC 32.2 g/dL (32.0-36.0); MEAN CORPUSCULAR VOLUME 84 fl (80-97); MONOCYTES % (AUTO) 14.4 % (3-13); PLATELET COUNT 191 10^3/uL (150-450); RED CELL DISTRIBUTION WIDTH 14.1 % (11.5-14.0); SEGMENTED NEUTROPHILS % (AUTO) 55.8 % (42-78); TOTAL CELLS COUNTED % (AUTO) 100 %; WHITE BLOOD COUNT 4.7 10^3/uL (4.0-10.5)
[2017-11-23 07:05] LABS: ANION GAP 10 (5-19); BLOOD UREA NITROGEN 27 mg/dL (7-20); CALCIUM 9.2 mg/dL (8.4-10.2); CARBON DIOXIDE 23 mmol/L (22-30); CHLORIDE 108 mmol/L (98-107); GLUCOSE 123 mg/dL (75-110); POTASSIUM 4.1 mmol/L (3.6-5.0); SODIUM 140.5 mmol/L (137-145)
[2017-11-23] MEDS ORDERED: NITROGLYCERIN 0.4 MG/TAB 25 TAB/BOTTLE ONE (08:18)
[2017-11-23] MEDS ORDERED: NITROGLYCERIN 0.4 MG/TAB 25 TAB/BOTTLE SL PRN (08:21)
[2017-11-23 08:53] LABS: CREATINE KINASE MB 0.69 ng/mL (<4.55)
[2017-11-23 08:57] LABS: TROPONIN I < 0.012 ng/mL
[2017-11-23] MEDS ORDERED: LANSOPRAZOLE 30 MG TAB.RAP.DR PO ONE (09:00)
--- NOTE | 2017-11-23 09:35 | EKG REPORT ---
SEVERITY:- ABNORMAL ECG - ATRIAL FIBRILLATION, V-RATE 60-105 PREMATURE COMPLEX, VENT BORDERLINE LEFT AXIS DEVIATION ABNORMAL T, CONSIDER ISCHEMIA, LATERAL LEADS : Confirmed by: Ke Shahid 23-Nov-2017 09:34:20
[2017-11-23] MEDS ORDERED: METOPROLOL SUCCINATE 25 MG TAB.SR.24H PO SCH (10:00)
[2017-11-23] MEDS: FUROSEMIDE INJ/PF 40 MG/4 ML SDV IV SCH (10:26)
[2017-11-23] MEDS: POTASSIUM CHLORIDE 10 MEQ TABLET.SA PO SCH (10:26)
[2017-11-23] MEDS: VALSARTAN 160 MG TABLET PO SCH (10:28)
[2017-11-23] MEDS: ASPIRIN 81 MG TABLET, CHEWABLE PO SCH (10:28)
[2017-11-23] MEDS: MAGNESIUM OXIDE 400 MG TABLET PO SCH (10:28)
[2017-11-23] MEDS: HYDRALAZINE HCL 50 MG TABLET PO SCH ×2 (10:28→22:40)
--- NOTE | 2017-11-23 10:45 | PDOC PROGRESS REPORT ---
Subjective Progress Note for:: 11/23/17 Subjective:: Patient is complaining for chest pain this morning which is on the left side and radiating to the left jaw Patient EKG of persistence with the A. fib some PVC Since cardiac enzymes al neg Patient's had a CT angiogram was done was also negative Patient had a stent placement in 2009 and afterwards patient had one stress test was done I believe in 2014 according to the patient Patient seen by the cardiology discussed with the cardiology regarding the patient's possible unstable angina Reason For Visit: ACUTE ON CHRONIC CHF Physical Exam Vital Signs: Temp Pulse Resp BP Pulse Ox 98.5 F 82 18 123/73 100 11/23/17 00:13 11/23/17 02:00 11/23/17 00:13 11/23/17 00:13 11/23/17 00:13 Intake & Output 11/22/17 11/23/17 11/24/17 06:59 06:59 06:59 Intake Total 210 Balance 210 General appearance: PRESENT: no acute distress, well-developed, well-nourished Head exam: PRESENT: atraumatic, normocephalic Eye exam: PRESENT: conjunctiva pink, EOMI, PERRLA. ABSENT: scleral icterus Ear exam: PRESENT: normal external ear exam Mouth exam: PRESENT: moist, tongue midline Neck exam: PRESENT: full ROM. ABSENT: carotid bruit, JVD, lymphadenopathy, thyromegaly Respiratory exam: PRESENT: clear to auscultation johanna Cardiovascular exam: PRESENT: RRR. ABSENT: diastolic murmur, rubs, systolic murmur Pulses: PRESENT: normal dorsalis pedis pul, +2 pedal pulses bilateral Vascular exam: PRESENT: normal capillary refill GI/Abdominal exam: PRESENT: normal bowel sounds, soft. ABSENT: distended, guarding, mass, organolmegaly, rebound, tenderness Rectal exam: PRESENT: deferred Extremities exam: ABSENT: pedal edema Neurological exam: PRESENT: alert, awake, oriented to person, oriented to place , oriented to time, oriented to situation, CN II-XII grossly intact. ABSENT: motor sensory deficit Psychiatric exam: PRESENT: appropriate affect, normal mood. ABSENT: homicidal ideation, suicidal ideation Skin exam: PRESENT: dry, intact, warm. ABSENT: cyanosis, rash Results Laboratory Results: 11/23/17 05:55 11/23/17 05:55 11/23/17 11/23/17 05:55 05:55 WBC 4.7 RBC 4.70 Hgb 12.8 Hct 39.7 MCV 84 MCH 27.2 MCHC 32.2 RDW 14.1 H Plt Count 191 Seg Neutrophils % 55.8 Lymphocytes % 26.9 Monocytes % 14.4 H Eosinophils % 1.9 Basophils % 1.0 Absolute Neutrophils 2.6 Absolute Lymphocytes 1.3 Absolute Monocytes 0.7 Absolute Eosinophils 0.1 Absolute Basophils 0.0 Sodium 140.5 Potassium 4.1 Chloride 108 H Carbon Dioxide 23 Anion Gap 10 BUN 27 H Creatinine 1.00 Est GFR ( Amer) > 60 Est GFR (Non-Af Amer) 56 L Glucose 123 H Calcium 9.2 11/23/17 11/23/17 11/23/17 05:55 08:16 08:16 Creatine Kinase 100 CK-MB (CK-2) 0.69 Troponin I < 0.012 NT-Pro-B Natriuret Pep 812 Impressions: Chest X-Ray 11/20/17 15:15 IMPRESSION: HEART ENLARGED WITHOUT FAILURE. NO OTHER SIGNIFICANT RADIOGRAPHIC FINDING IN THE CHEST. Chest/Abdomen CTA 11/22/17 00:00 IMPRESSION: No acute consolidations or pleural effusions. NO PULMONARY EMBOLI. Other findings as noted above. Assessment & Plan - Diagnosis (1) CAD S/P percutaneous coronary angioplasty Is this a current diagnosis for this admission?: Yes Plan: Will continues to nitro as needed discussed with the cardiology for further evaluations will repeat the cardiac enzymes every 63 (2) CHF, acute on chronic Qualifiers: Heart failure type: unspecified Qualified Code(s): I50.9 - Heart failure, unspecified Is this a current diagnosis for this admission?: Yes Plan: We will wait for the echo report continues to Lasix (3) Chronic atrial fibrillation Is this a current diagnosis for this admission?: Yes Plan: Continues to mitral propranolol and continues on Coumadin (4) Diabetes mellitus type 2 in obese Is this a current diagnosis for this admission?: Yes Plan: Currently stable (5) Hypertension Qualifiers: Hypertension type: essential hypertension Qualified Code(s): I10 - Essential (primary) hypertension Is this a current diagnosis for this admission?: Yes Plan: Continues current medication (6) Morbid (severe) obesity with alveolar hypoventilation Is this a current diagnosis for this admission?: Yes (7) Palpitations Is this a current diagnosis for this admission?: Yes Plan: Follow with cardiology (8) Shortness of breath Is this a current diagnosis for this admission?: Yes Plan: Patients have a multifactorial's but definitely rule out underlying coronary disease - Time Time Spent with patient: 15-24 minutes Medications reviewed and adjusted accordingly: Yes Anticipated discharge: Home - Inpatient Certification Medical Necessity: Need Close Monitoring Due to Risk of Patient Decompensation 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
[2017-11-23] MEDS ORDERED: METOPROLOL SUCCINATE 50 MG TAB.SR.24H PO ONE (11:00)
[2017-11-23] MEDS ORDERED: ALPRAZOLAM 0.5 MG TABLET PO ONE (11:30)
[2017-11-23] MEDS ORDERED: RANOLAZINE 500 MG TAB.SR.12H PO ONE (11:30)
[2017-11-23] MEDS ORDERED: PANTOPRAZOLE SODIUM 40 MG VIAL IV ONE (11:30)
[2017-11-23] MEDS: INSULIN LISPRO 100 UNIT/ML 3 ML VIAL SUBCUT SCH ×3 (12:05→17:43)
[2017-11-23 12:47] LABS: PROTHROMBIN TIME 23.8 SEC (11.4-15.4)
--- NOTE | 2017-11-23 12:52 | PDOC PROGRESS REPORT ---
Subjective Progress Note for:: 11/23/17 Subjective:: Patient started having chest pain at around 7 in the morning. It is rather a constant aching and pressure type discomfort which she claims is very similar to when she had a heart attack and had stent placement. Patient had EKGs performed earlier this morning which showed atrial fibrillation with some minor nonspecific ST-T wave changes. A subsequent EKG was performed at around 9:30 AM which showed no significant additional changes. Patient had a echocardiogram ordered which was performed. Patient initial cardiac enzymes was negative. Patient noted to be quite concerned and is anxious. Patient does describe history of anxiety disorder. Reason For Visit: ACUTE ON CHRONIC CHF Physical Exam Vital Signs: Temp Pulse Resp BP Pulse Ox 98.2 F 79 22 H 153/81 H 97 11/23/17 10:39 11/23/17 10:39 11/23/17 10:39 11/23/17 10:39 11/23/17 10:39 Intake & Output 11/22/17 11/23/17 11/24/17 06:59 06:59 06:59 Intake Total 210 Balance 210 Exam: GENERAL: well-nourished and in no acute distress. Alert and oriented x3 HEAD: Atraumatic, normocephalic. EYES: Pupils equal round and reactive to light, extraocular movements intact, sclera anicteric, conjunctiva are normal. ENT: TMs normal, nares patent, oropharynx clear without exudates. Moist mucous membranes. No oral ulcerations or bleeding gums noted NECK: supple without lymphadenopathy. Trachea is central. No cervical or axillary lymphadenopathy noted. Carotids are 2+, JVD WNL LUNGS: Respiration seems nonlabored, no significant accessory muscle action noted. Breath sounds clear to auscultation bilaterally and equal noted. No wheezes rales or rhonchi noted. No significant dullness noted on percussion. CHEST: Palpation of the chest wall shows no significant chest wall tenderness. No other significant abnormalities noted. HEART: [place] [employer], No PSH, 1/6 SYLVAIN aortic area, 1/6 muro systolic murmur mitral area, no rubs, no gallops. ABDOMEN: Soft, no significant tenderness appreciated, normoactive bowel sounds. No guarding, no rebound. No rigidity noted . No masses appreciated. EXTREMITIES: Pedal pulses are 1-2+, no calf tenderness noted. No clubbing or cyanosis.trace to 1+ pedal edema noted NEUROLOGICAL: Focused neurological exam showed no significant neurologic deficit. Normal speech, no focal weakness appreciated. PSYCH: Normal mood, normal affect. Judgment and insight within normal limits. SKIN: No significant ecchymosis, skin is noted to be warm. MUSCULOSKELETAL EXAM: No significant acute joint swelling noted. Results Laboratory Results: 11/23/17 05:55 11/23/17 05:55 11/23/17 11/23/17 05:55 05:55 WBC 4.7 RBC 4.70 Hgb 12.8 Hct 39.7 MCV 84 MCH 27.2 MCHC 32.2 RDW 14.1 H Plt Count 191 Seg Neutrophils % 55.8 Lymphocytes % 26.9 Monocytes % 14.4 H Eosinophils % 1.9 Basophils % 1.0 Absolute Neutrophils 2.6 Absolute Lymphocytes 1.3 Absolute Monocytes 0.7 Absolute Eosinophils 0.1 Absolute Basophils 0.0 Sodium 140.5 Potassium 4.1 Chloride 108 H Carbon Dioxide 23 Anion Gap 10 BUN 27 H Creatinine 1.00 Est GFR ( Amer) > 60 Est GFR (Non-Af Amer) 56 L Glucose 123 H Calcium 9.2 11/23/17 11/23/17 11/23/17 05:55 08:16 08:16 Creatine Kinase 100 CK-MB (CK-2) 0.69 Troponin I < 0.012 NT-Pro-B Natriuret Pep 812 EKG Comments: Twelve-lead EKGs 2 reviewed. Please see under HPI. Impressions: Chest X-Ray 11/20/17 15:15 IMPRESSION: HEART ENLARGED WITHOUT FAILURE. NO OTHER SIGNIFICANT RADIOGRAPHIC FINDING IN THE CHEST. Chest/Abdomen CTA 11/22/17 00:00 IMPRESSION: No acute consolidations or pleural effusions. NO PULMONARY EMBOLI. Other findings as noted above. Assessment & Plan - Diagnosis (1) Chest pain Qualifiers: Chest pain type: unspecified Qualified Code(s): R07.9 - Chest pain, unspecified Is this a current diagnosis for this admission?: Yes (2) CAD S/P percutaneous coronary angioplasty Is this a current diagnosis for this admission?: Yes (3) Chronic atrial fibrillation Is this a current diagnosis for this admission?: Yes (4) Depression Qualifiers: Depression Type: unspecified Qualified Code(s): F32.9 - Major depressive disorder, single episode, unspecified Is this a current diagnosis for this admission?: Yes (5) Diabetes mellitus type 2 in obese Is this a current diagnosis for this admission?: Yes (6) Hyperlipidemia associated with type 2 diabetes mellitus Is this a current diagnosis for this admission?: Yes (7) Hypertension Qualifiers: Hypertension type: essential hypertension Qualified Code(s): I10 - Essential (primary) hypertension Is this a current diagnosis for this admission?: Yes (8) Morbid (severe) obesity with alveolar hypoventilation Is this a current diagnosis for this admission?: Yes (9) Congestive heart failure Qualifiers: Heart failure type: diastolic Heart failure chronicity: unspecified Qualified Code(s): I50.30 - Unspecified diastolic (congestive) heart failure Is this a current diagnosis for this admission?: Yes (10) Generalized anxiety disorder with panic attacks Is this a current diagnosis for this admission?: Yes (11) Gastroesophageal reflux disease Qualifiers: Esophagitis presence: esophagitis presence not specified Qualified Code(s) : K21.9 - Gastro-esophageal reflux disease without esophagitis Is this a current diagnosis for this admission?: Yes - Notes Notes: Patient seen at least twice today. Patient was noted to have chest pain. So far evaluation is negative for any myocardial infarction. At this point, patient seems to be very anxious. Have ordered Xanax 0.5 mg p.o. 1. Patient claims being unable to sleep in the hospital. Patient also ordered to have Protonix 40 mg IV. Twelve-lead EKG 2 were reviewed. Initial cardiac enzymes is negative. Will order one more set. Patient will benefit from ischemia evaluation. However if she keeps on having chest pain, patient will need heart catheterization. Chest pain: There are multiple differential diagnosis. At this point believe patient will benefit from ischemia at workup. Will try optimize medical management. Coronary artery disease: Patient is status post coronary angioplasty. Continue aspirin, Plavix, statins, beta blockers. Also continue angiotensin receptor blockers. Congestive heart failure: Most likely related to diastolic dysfunction. It may be worthwhile to consider repeating the echocardiogram. Continue IV diuretics for now. Chronic atrial fibrillation: Continue chronic Coumadin therapy. Continue rate control with beta-david. May add Cardizem if needed. Depression: Patient may benefit from antidepressant. However patient does not want to admit that she is depressed. Diabetes: Recommend good control of blood sugar. However should avoid any hypoglycemia and hyperglycemia. Patient being expertly managed by primary care M.D/hospitalist. Hypertension: Reasonably well controlled. Blood pressure goal in this patient is 135/85 or less. This was discussed with the patient. Currently blood pressure under reasonable control. Better medication for this patient are LILY inhibitor/ARB/beta david etc. discussed side effects of uncontrolled hypertension and also severe hypotension. Obesity: Patient has been encouraged in weight loss. Probable underlying sleep apnea syndrome: Patient will benefit from a sleep evaluation. Patient lab sleep study was more than 5 years ago and is worth repeating. Generalized anxiety disorder: Patient will benefit from SSRI agent and also as needed anxiolytics. Gastroesophageal reflux disease: This is strongly suspected. Empiric proton pump therapy is being recommended.
--- NOTE | 2017-11-23 15:52 | EKG REPORT ---
SEVERITY:- ABNORMAL ECG - ATRIAL FIBRILLATION, V-RATE 79-135 MULTIFORM VENTRICULAR PREMATURE COMPLEXES LVH WITH SECONDARY REPOLARIZATION ABNORMALITY : Confirmed by: Ke Shahid 23-Nov-2017 15:51:46
[2017-11-23 16:28] LABS: CREATINE KINASE MB 0.59 ng/mL (<4.55)
[2017-11-23 16:32] LABS: TROPONIN I < 0.012 ng/mL
[2017-11-23] MEDS: LANSOPRAZOLE 30 MG TAB.RAP.DR PO SCH (17:42)
--- NOTE | 2017-11-23 19:17 | XCELERA REPORT ---
[address] [address] Transthoracic Echocardiogram Report Name: YURY MCCULLOUGH Age: 62 yrs Gender: Female : 1955 Patient Status: Inpatient Patient Location: [address] [place] [address] Study Date: 11/23/2017 09:43 AM Height: 66 in Weight: 336 lb BSA: 2.5 m2 Procedure: A complete two-dimensional transthoracic echocardiogram was performed (2D, M-mode, spectral and color flow Doppler). The study was technically difficult with many images being suboptimal in quality. Reason For Study: sob/chf Ordering Physician: BUTCH DIAZ Performed By: Mary Kay Chavez Interpretation Summary The left ventricular ejection fraction is normal. The left ventricular cavity is small. Doppler measurements suggest pseudonormalized left ventricular relaxation, which is associated with grade II/IV or mild to moderate diastolic dysfunction There is moderate concentric left ventricular hypertrophy. Wall motion cannot be accurately commented on, but no definite regional wall motion abnormalities noted. The right ventricular systolic function is normal. The left atrial size is normal. The right atrium is normal in size There is a trace amount of mitral regurgitation There is no mitral valve stenosis. No aortic regurgitation is present. There is no aortic valve stenosis No tricuspid regurgitation. There is no tricuspid stenosis. The aortic root is not well visualized but is probably normal size. The inferior vena cava appeared normal and decreased > 50% with respiration (RAP 5-10 mmHg) There is no pericardial effusion. MMode/2D Measurements & Calculations RVDd: 3.3 cm LVIDd: 3.9 cm FS: 39.2 % Ao root diam: 2.7 cm IVSd: 1.2 cm LVIDs: 2.3 cm EDV(Teich): 64.0 ml LVPWd: 1.2 cm ESV(Teich): 19.0 ml Ao root area: 5.8 cm2 EF(Teich): 70.3 % LA dimension: 2.7 cm Doppler Measurements & Calculations MV E max ericka: MV P1/2t max ericka: Ao V2 max: LV V1 max P.5 cm/sec 98.0 cm/sec 135.7 cm/sec 3.8 mmHg MV P1/2t: 64.5 msec Ao max PG: LV V1 max: 7.4 mmHg 97.5 cm/sec MVA(P1/2t): 3.4 cm2 MV dec slope: 445.2 cm/sec2 PA V2 max: 76.5 cm/sec PA max P.3 mmHg Left Ventricle There is moderate concentric left ventricular hypertrophy. The left ventricular cavity is small. The left ventricular ejection fraction is normal. Doppler measurements suggest pseudonormalized left ventricular relaxation, which is associated with grade II/IV or mild to moderate diastolic dysfunction. Wall motion cannot be accurately commented on, but no definite regional wall motion abnormalities noted. Right Ventricle The right ventricle is grossly normal size. There is normal right ventricular wall thickness. The right ventricular systolic function is normal. Atria The right atrium is normal in size. The left atrial size is normal. Interarterial septum not well visualized and not well dopplered. Cannot comment on ASD/PFO presence. Mitral Valve The mitral valve is grossly normal. There is no mitral valve stenosis. There is a trace amount of mitral regurgitation. Aortic Valve The aortic valve opens well. There is no aortic valve stenosis. No aortic regurgitation is present. Tricuspid Valve The tricuspid valve is not well visualized secondary to technical limitations. There is no tricuspid stenosis. No tricuspid regurgitation. Pulmonic Valve The pulmonic valve is not well visualized. Great Vessels The aortic root is not well visualized but is probably normal size. The inferior vena cava appeared normal and decreased > 50% with respiration (RAP 5-10 mmHg). Effusions There is no pericardial effusion. : BUTCH DIAZ > Ke Shahid
--- NOTE | 2017-11-23 19:28 | PDOC CONSULTATION ---
Consultation Consult Date: 11/22/17 Attending physician:: KATHRYN DIAZ Consult reason:: Chest pains History of Present Illness Admission Date/PCP: 11/22/17 14:00 KATHRYN DIAZ MD Patient complains of: Chest pain and shortness of breath History of Present Illness: YURY MCCULLOUGH is a 62 year old female of Dr. Kathryn Diaz who presented to the ED earlier today with worsening shortness of breath and palpitation over last 3-4 days. Patient reported compliance with her medication and dietary restrictions. She reported associated PND and sleeping in recliner chair due to difficulty sleeping supine. She reported new onset left upper extremities pain but denies any chest pain, diaphoresis, lightheadedness. She has chronic bilateral leg swelling. Patient reported nausea but vomiting. No diarrhea but admitted to medication related constipation. Her morbidities include chronic Atrial fibrillation, Congestive Heart Failure, Hypertension, CAD with old [place] and stent angioplasty, Diabetes Mellitus Type 2, Hypercholesterolemia, Depression, Breast cancer s/p lumpectomy, and Morbid obesity. Her initial evaluation in the ED was significant for elevated BNP and concern for acute decompensated CHF. She was treated with IV Lasix and she reported some improvement at the time of my evaluation. This history was reviewed and confirmed. Patient had noted some tightness in the chest. Her shortness of breath has improved. She has noted some pedal edema. Patient does feel palpitations but denied any overt syncope or near syncope. Past Medical History Cardiac Medical History: Reports: Atrial Fibrillation, Congestive Heart Failure , Coronary Artery Disease, Myocardial Infarction - 2010, Hyperlipidema, Hypertension Pulmonary Medical History: Denies: Asthma, Bronchitis, Chronic Obstructive Pulmonary Disease (COPD), Pneumonia Neurological Medical History: Denies: Seizures Endocrine Medical History: Reports: Diabetes Mellitus Type 2 Malignancy Medical History: Reports: Breast Cancer GI Medical History: Reports: Gastroesophageal Reflux Disease Musculoskeltal Medical History: Reports: Arthritis - degenerative Psychiatric Medical History: Reports: Depression Hematology: Denies: Anemia Past Surgical History Past Surgical History: Reports: Cardiac Catheterization - stent, Section - x 2, Orthopedic Surgery - GANGLION CYST Denies: Pacemaker Social History Information Source: Patient Smoking Status: Never Smoker Drugs: None - Advance Directive Resuscitation Status: Full Code Family History Family History: CAD, Other - No FH of DVT/PE Parental Family History Reviewed: Yes Children Family History Reviewed: Yes Sibling(s) Family History Reviewed.: Yes Medication/Allergy Home Medications: Atorvastatin Calcium [Lipitor 40 mg Tablet] 40 mg PO QHS 06/10/12 Hydralazine HCl [Apresoline 50 mg Tablet] 50 mg PO Q8 06/10/12 Insulin Aspart [Novolog] 30 unit SQ MEALS 06/10/12 Insulin Glargine,Hum.rec.anlog [Lantus] 30 unit SQ QHS 06/10/12 Magnesium Oxide 400 mg PO DAILY 06/10/12 Omeprazole 20 mg PO DAILY 06/10/12 Metformin HCl [Glumetza] 500 mg PO BID 11/03/12 Aspirin [Aspirin 81 mg Chewable Tablet] 81 mg PO DAILY 03/14/13 Potassium Chloride [Klor-Con 10 Meq Tablet.sa] 10 meq PO DAILY 03/14/13 Furosemide [Lasix 20 mg Tablet] 40 mg PO DAILY 03/31/13 Warfarin Sodium [Coumadin] 10 mg PO QHS 03/31/13 Celecoxib [Celecoxib] 100 mg PO BID 11/20/17 Clonidine HCl [Clonidine HCl] 0.3 mg PO Q8 11/20/17 Dulaglutide [Trulicity] 1.5 mg SQ Fr@1000 11/20/17 Metoprolol Tartrate [Metoprolol Tartrate] 100 mg PO Q12 11/20/17 Allergies/Adverse Reactions: naproxen [From Naprosyn] Allergy (Severe, Verified 11/20/17 15:15) FEELS "ON FIRE" Penicillins Allergy (Intermediate, Verified 11/20/17 15:15) broke out in white blisters niacin [Niacin] Allergy (Mild, Verified 11/20/17 15:15) "on fire" oxycodone HCl [From Percocet] Allergy (Mild, Verified 11/20/17 15:15) itchy propoxyphene napsylate [From Darvocet-N 100] Allergy (Mild, Verified 11/20/17 15 :15) itchy Review of Systems Review of Systems: Please see history of present illness and past medical history as wall. Constitutional: No fever or chills reported. Head : No recent chronic headaches, recent head injury. Eyes: No recent eye pain, diplopia, redness, discharge, acute visual changes. Ears: No recent chronic ear pain, acute hearing loss, ear discharge. Oral cavity: No recent ulcerations, bleeding, oral cavity discomfort. Neck: No recent acute neck pain reported. Hematologic: No recent easy bruising or bleeding or hematologic malignancy reported. Lymphatic: No recent lymphatic malignancy, chronic lymphadenopathy reported yet Cardiovascular system review: See history of present illness. Respiratory system review: No recent chronic cough, hemoptysis, blood clots in the lungs reported. Mild Shortness of breath on exertion Gastrointestinal system review: Negative for any recent acute or chronic abdominal pain, hematemesis, melena, recent change in bowel habits. Genitourinary system review: No recent acute or chronic hematuria, flank pain, UTI etc. reported. Skin system review: Negative for any recent abnormal bruising, no rash, no pruritus reported. Neurologic: No prior history of strokes, mini strokes, seizure disorder. Psychologic: No history of major psychosis or major depression reported. Musculoskeletal: Minor aches and pains reported. No acute joint swelling reported. Endocrine: No recent polyuria, polydipsia, recent heat or cold intolerance. Physical Exam Vital Signs: Temp Pulse Resp BP Pulse Ox 98.2 F 79 22 H 153/81 H 97 11/23/17 10:39 11/23/17 10:39 11/23/17 10:39 11/23/17 10:39 11/23/17 10:39 Intake & Output 11/22/17 11/23/17 11/24/17 06:59 06:59 06:59 Intake Total 210 Balance 210 Exam: GENERAL: well-nourished and in no acute distress. Alert and oriented x3 HEAD: Atraumatic, normocephalic. EYES: Pupils equal round and reactive to light, extraocular movements intact, sclera anicteric, conjunctiva are normal. ENT: TMs normal, nares patent, oropharynx clear without exudates. Moist mucous membranes. No oral ulcerations or bleeding gums noted NECK: supple without lymphadenopathy. Trachea is central. No cervical or axillary lymphadenopathy noted. Carotids are 2+, JVD WNL LUNGS: Respiration seems nonlabored, no significant accessory muscle action noted. Breath sounds clear to auscultation bilaterally and equal noted. No wheezes rales or rhonchi noted. No significant dullness noted on percussion. CHEST: Palpation of the chest wall shows no significant chest wall tenderness. No other significant abnormalities noted. HEART: [place] [employer] HEAD, No PSH, 1/6 SYLVAIN aortic area, 1/6 muro systolic murmur mitral area, no rubs, no gallops. ABDOMEN: Soft, no significant tenderness appreciated, normoactive bowel sounds. No guarding, no rebound. No rigidity noted . No masses appreciated. EXTREMITIES: Pedal pulses are 1-2+, no calf tenderness noted. No clubbing or cyanosis. 1+ pedal edema noted NEUROLOGICAL: Focused neurological exam showed no significant neurologic deficit. Normal speech, no focal weakness appreciated. PSYCH: Normal mood, normal affect. Judgment and insight within normal limits. SKIN: No significant ecchymosis, skin is noted to be warm. MUSCULOSKELETAL EXAM: No significant acute joint swelling noted. Results Laboratory Results: 11/23/17 05:55 11/23/17 05:55 11/23/17 11/23/17 05:55 05:55 WBC 4.7 RBC 4.70 Hgb 12.8 Hct 39.7 MCV 84 MCH 27.2 MCHC 32.2 RDW 14.1 H Plt Count 191 Seg Neutrophils % 55.8 Lymphocytes % 26.9 Monocytes % 14.4 H Eosinophils % 1.9 Basophils % 1.0 Absolute Neutrophils 2.6 Absolute Lymphocytes 1.3 Absolute Monocytes 0.7 Absolute Eosinophils 0.1 Absolute Basophils 0.0 Sodium 140.5 Potassium 4.1 Chloride 108 H Carbon Dioxide 23 Anion Gap 10 BUN 27 H Creatinine 1.00 Est GFR ( Amer) > 60 Est GFR (Non-Af Amer) 56 L Glucose 123 H Calcium 9.2 11/23/17 11/23/17 11/23/17 05:55 08:16 08:16 Creatine Kinase 100 CK-MB (CK-2) 0.69 Troponin I < 0.012 NT-Pro-B Natriuret Pep 812 EKG Comments: Atrial fibrillation with somewhat rapid ventricular response. Minor nonspecific ST-T wave changes noted. Impressions: Chest X-Ray 11/20/17 15:15 IMPRESSION: HEART ENLARGED WITHOUT FAILURE. NO OTHER SIGNIFICANT RADIOGRAPHIC FINDING IN THE CHEST. Chest/Abdomen CTA 11/22/17 00:00 IMPRESSION: No acute consolidations or pleural effusions. NO PULMONARY EMBOLI. Other findings as noted above. Assessment & Plan - Diagnosis (1) Chest pain Qualifiers: Chest pain type: unspecified Qualified Code(s): R07.9 - Chest pain, unspecified Is this a current diagnosis for this admission?: Yes (2) CAD S/P percutaneous coronary angioplasty Is this a current diagnosis for this admission?: Yes (3) Congestive heart failure Qualifiers: Heart failure type: diastolic Heart failure chronicity: unspecified Qualified Code(s): I50.30 - Unspecified diastolic (congestive) heart failure Is this a current diagnosis for this admission?: Yes (4) Depression Qualifiers: Depression Type: unspecified Qualified Code(s): F32.9 - Major depressive disorder, single episode, unspecified Is this a current diagnosis for this admission?: Yes (5) Diabetes mellitus type 2 in obese Is this a current diagnosis for this admission?: Yes (6) Hyperlipidemia associated with type 2 diabetes mellitus Is this a current diagnosis for this admission?: Yes (7) Hypertension Qualifiers: Hypertension type: essential hypertension Qualified Code(s): I10 - Essential (primary) hypertension Is this a current diagnosis for this admission?: Yes (8) Morbid (severe) obesity with alveolar hypoventilation Is this a current diagnosis for this admission?: Yes (9) Palpitations Is this a current diagnosis for this admission?: Yes - Notes Notes: Chest pain: There are multiple differential diagnosis. At this point believe patient will benefit from ischemia at workup. Will try optimize medical management. Coronary artery disease: Patient is status post coronary angioplasty. Continue aspirin, Plavix, statins, beta blockers. Also continue angiotensin receptor blockers. Congestive heart failure: Most likely related to diastolic dysfunction. It may be worthwhile to consider repeating the echocardiogram. Continue IV diuretics for now. Depression: Patient may benefit from antidepressant. However patient does not want to admit that she is depressed. Diabetes: Recommend good control of blood sugar. However should avoid any hypoglycemia and hyperglycemia. Patient being expertly managed by primary care M.D/hospitalist. Hypertension: Reasonably well controlled. Blood pressure goal in this patient is 135/85 or less. This was discussed with the patient. Currently blood pressure under reasonable control. Better medication for this patient are LILY inhibitor/ARB/beta david etc. discussed side effects of uncontrolled hypertension and also severe hypotension. Obesity: Patient has been encouraged in weight loss. Probable underlying sleep apnea syndrome: Patient will benefit from a sleep evaluation. Patient lab sleep study was more than 5 years ago and is worth repeating. - Time Time Spent: 30 to 50 Minutes - Patient remains full code. More than 50% of the time spent coordinating care, discussing management plans with involved caregivers. Management plans discussed with involved personnels. Medical decision making was of moderate to high complexity, patient's has multiple comorbidities. Medications reviewed and adjusted accordingly: Yes
[2017-11-23] MEDS: METOPROLOL SUCCINATE 50 MG TAB.SR.24H PO SCH (22:40)
[2017-11-23] MEDS: INSULIN GLARGINE,HUM.REC.ANLOG 300 UNIT/3 ML INSULN.PEN SUBCUT SCH (22:40)
[2017-11-23] MEDS: ATORVASTATIN CALCIUM 40 MG TABLET PO SCH (22:40)
[2017-11-23] MEDS: WARFARIN SODIUM 5 MG TABLET PO SCH (22:40)
[2017-11-23] MEDS: RANOLAZINE 500 MG TAB.SR.12H PO SCH (22:40)
[2017-11-23 22:48] LABS: CREATINE KINASE MB 0.55 ng/mL (<4.55)
[2017-11-23 22:50] LABS: TROPONIN I < 0.012 ng/mL
[2017-11-24] MEDS: LANSOPRAZOLE 30 MG TAB.RAP.DR PO SCH ×2 (05:50→18:15)
[2017-11-24] MEDS: CLONIDINE HCL 0.1 MG TABLET PO SCH ×3 (05:54→22:16)
[2017-11-24 05:58] LABS: ANION GAP 11 (5-19); BLOOD UREA NITROGEN 27 mg/dL (7-20); CALCIUM 9.2 mg/dL (8.4-10.2); CARBON DIOXIDE 25 mmol/L (22-30); CHLORIDE 104 mmol/L (98-107); GLUCOSE 134 mg/dL (75-110); POTASSIUM 3.9 mmol/L (3.6-5.0); SODIUM 139.6 mmol/L (137-145)
--- NOTE | 2017-11-24 08:55 | PDOC PROGRESS REPORT ---
Subjective Progress Note for:: 11/24/17 Subjective:: Patient is currently doing much better denied any chest pain denied any shortness of the breath Is all cardiac enzyme yesterday negatives patient was giving the Xanax and the PPI Scheduled for the stress test today Reason For Visit: ACUTE ON CHRONIC CHF Physical Exam Vital Signs: Temp Pulse Resp BP Pulse Ox 98.3 F 80 18 120/52 L 99 11/23/17 23:02 11/24/17 07:00 11/23/17 23:02 11/23/17 23:02 11/23/17 23:02 Intake & Output 11/23/17 11/24/17 11/25/17 06:59 06:59 06:59 Intake Total 210 488 Output Total 1000 Balance 210 -512 General appearance: PRESENT: no acute distress, well-developed, well-nourished Head exam: PRESENT: atraumatic, normocephalic Eye exam: PRESENT: conjunctiva pink, EOMI, PERRLA. ABSENT: scleral icterus Ear exam: PRESENT: normal external ear exam Mouth exam: PRESENT: moist, tongue midline Neck exam: PRESENT: full ROM. ABSENT: carotid bruit, JVD, lymphadenopathy, thyromegaly Respiratory exam: PRESENT: clear to auscultation johanna Cardiovascular exam: PRESENT: RRR. ABSENT: diastolic murmur, rubs, systolic murmur Pulses: PRESENT: normal dorsalis pedis pul, +2 pedal pulses bilateral Vascular exam: PRESENT: normal capillary refill GI/Abdominal exam: PRESENT: normal bowel sounds, soft. ABSENT: distended, guarding, mass, organolmegaly, rebound, tenderness Rectal exam: PRESENT: deferred Extremities exam: ABSENT: pedal edema Neurological exam: PRESENT: alert, awake, oriented to person, oriented to place , oriented to time, oriented to situation, CN II-XII grossly intact. ABSENT: motor sensory deficit Psychiatric exam: PRESENT: appropriate affect, normal mood. ABSENT: homicidal ideation, suicidal ideation Skin exam: PRESENT: dry, intact, warm. ABSENT: cyanosis, rash Results Laboratory Results: 11/23/17 05:55 11/24/17 04:53 11/24/17 04:53 Sodium 139.6 Potassium 3.9 Chloride 104 Carbon Dioxide 25 Anion Gap 11 BUN 27 H Creatinine 1.02 Est GFR ( Amer) > 60 Est GFR (Non-Af Amer) 55 L Glucose 134 H Calcium 9.2 11/23/17 11/23/17 11/23/17 05:55 08:16 08:16 Creatine Kinase 100 CK-MB (CK-2) 0.69 Troponin I < 0.012 NT-Pro-B Natriuret Pep 812 11/23/17 11/23/17 11/23/17 15:40 15:40 21:58 Creatine Kinase 88 85 CK-MB (CK-2) 0.59 Troponin I < 0.012 NT-Pro-B Natriuret Pep 11/23/17 22:10 Creatine Kinase CK-MB (CK-2) 0.55 Troponin I < 0.012 NT-Pro-B Natriuret Pep Impressions: Chest X-Ray 11/20/17 15:15 IMPRESSION: HEART ENLARGED WITHOUT FAILURE. NO OTHER SIGNIFICANT RADIOGRAPHIC FINDING IN THE CHEST. Chest/Abdomen CTA 11/22/17 00:00 IMPRESSION: No acute consolidations or pleural effusions. NO PULMONARY EMBOLI. Other findings as noted above. Assessment & Plan - Diagnosis (1) CAD S/P percutaneous coronary angioplasty Is this a current diagnosis for this admission?: Yes Plan: Currently scheduled for the stress test per cardiology today (2) CHF, acute on chronic Qualifiers: Heart failure type: unspecified Qualified Code(s): I50.9 - Heart failure, unspecified Is this a current diagnosis for this admission?: Yes Plan: We will wait for the echo report continues to Lasix (3) Chronic atrial fibrillation Is this a current diagnosis for this admission?: Yes Plan: Continues to mitral propranolol and continues on Coumadin (4) Diabetes mellitus type 2 in obese Is this a current diagnosis for this admission?: Yes Plan: Currently stable (5) Hypertension Qualifiers: Hypertension type: essential hypertension Qualified Code(s): I10 - Essential (primary) hypertension Is this a current diagnosis for this admission?: Yes Plan: Continues current medication (6) Morbid (severe) obesity with alveolar hypoventilation Is this a current diagnosis for this admission?: Yes (7) Palpitations Is this a current diagnosis for this admission?: Yes Plan: Follow with cardiology (8) Shortness of breath Is this a current diagnosis for this admission?: Yes - Time Time Spent with patient: 15-24 minutes Medications reviewed and adjusted accordingly: Yes Anticipated discharge: Home Within: Other - Inpatient Certification Medical Necessity: Need Close Monitoring Due to Risk of Patient Decompensation Post Hospital Care: D/C Home Staging Specialist Documentation - Plan Summary Plan Summary: Scheduled for the stress test follow with the cardiology
--- NOTE | 2017-11-24 09:02 | EKG REPORT ---
SEVERITY:- ABNORMAL ECG - SINUS RHYTHM LEFT AXIS DEVIATION LVH WITH SECONDARY REPOLARIZATION ABNORMALITY CONSIDER ANTERIOR INFARCT : Confirmed by: Ke Shahid 24-Nov-2017 09:01:02
[2017-11-24] MEDS: INSULIN LISPRO 100 UNIT/ML 3 ML VIAL SUBCUT SCH ×3 (09:59→18:08)
[2017-11-24] MEDS: ASPIRIN 81 MG TABLET, CHEWABLE PO SCH (10:13)
[2017-11-24] MEDS: HYDRALAZINE HCL 50 MG TABLET PO SCH ×2 (10:14→22:16)
[2017-11-24] MEDS: FUROSEMIDE 20 MG TABLET PO SCH (10:14)
[2017-11-24] MEDS: RANOLAZINE 500 MG TAB.SR.12H PO SCH ×2 (10:14→22:16)
[2017-11-24] MEDS: MAGNESIUM OXIDE 400 MG TABLET PO SCH (10:14)
[2017-11-24] MEDS: POTASSIUM CHLORIDE 10 MEQ TABLET.SA PO SCH (10:14)
[2017-11-24] MEDS: METOPROLOL SUCCINATE 50 MG TAB.SR.24H PO SCH ×2 (10:14→22:28)
[2017-11-24 13:45] LABS: PROTHROMBIN TIME 26.5 SEC (11.4-15.4)
[2017-11-24] MEDS: VALSARTAN 160 MG TABLET PO SCH (14:20)
[2017-11-24] MEDS ORDERED: AMINOPHYLLINE INJ/PF 250 MG/10 ML SDV IV ONE (15:53)
[2017-11-24] MEDS ORDERED: REGADENOSON INJ 0.4 MG/5 ML DISP.SYRIN IV ONE (15:53)
[2017-11-24] MEDS: METFORMIN HCL 500 MG TABLET PO SCH (18:15)
--- NOTE | 2017-11-24 19:46 | PDOC PROGRESS REPORT ---
Subjective Progress Note for:: 11/24/17 Subjective:: Patient had several hours of chest pain yesterday. 3 sets of cardiac enzymes negative. EKG was relatively unremarkable. This morning patient feels generally better. She is denying any chest, neck discomfort. Patient has been scheduled for a stress test with 2 day protocol. This is because of her weight. Reason For Visit: ACUTE ON CHRONIC CHF Physical Exam Vital Signs: Temp Pulse Resp BP Pulse Ox 98.9 F 80 12 142/68 H 99 11/24/17 16:07 11/24/17 16:07 11/24/17 16:07 11/24/17 16:07 11/24/17 16:07 Intake & Output 11/23/17 11/24/17 11/25/17 06:59 06:59 06:59 Intake Total 210 488 518 Output Total 1000 Balance 210 -512 518 Exam: GENERAL: well-nourished and in no acute distress. Alert and oriented x3 HEAD: Atraumatic, normocephalic. EYES: Pupils equal round and reactive to light, extraocular movements intact, sclera anicteric, conjunctiva are normal. ENT: TMs normal, nares patent, oropharynx clear without exudates. Moist mucous membranes. No oral ulcerations or bleeding gums noted NECK: supple without lymphadenopathy. Trachea is central. No cervical or axillary lymphadenopathy noted. Carotids are 2+, JVD WNL LUNGS: Respiration seems nonlabored, no significant accessory muscle action noted. Breath sounds clear to auscultation bilaterally and equal noted. No wheezes rales or rhonchi noted. No significant dullness noted on percussion. CHEST: Palpation of the chest wall shows no significant chest wall tenderness. No other significant abnormalities noted. HEART: [place] [employer], No PSH, 1/6 SYLVAIN aortic area, 1/6 muro systolic murmur mitral area, no rubs, no gallops. ABDOMEN: Soft, no significant tenderness appreciated, normoactive bowel sounds. No guarding, no rebound. No rigidity noted . No masses appreciated. EXTREMITIES: Pedal pulses are 1-2+, no calf tenderness noted. No clubbing or cyanosis. 1+ pedal edema noted NEUROLOGICAL: Focused neurological exam showed no significant neurologic deficit. Normal speech, no focal weakness appreciated. PSYCH: Normal mood, normal affect. Judgment and insight within normal limits. SKIN: No significant ecchymosis, skin is noted to be warm. MUSCULOSKELETAL EXAM: No significant acute joint swelling noted. Results Laboratory Results: 11/23/17 05:55 11/24/17 04:53 11/24/17 04:53 Sodium 139.6 Potassium 3.9 Chloride 104 Carbon Dioxide 25 Anion Gap 11 BUN 27 H Creatinine 1.02 Est GFR ( Amer) > 60 Est GFR (Non-Af Amer) 55 L Glucose 134 H Calcium 9.2 11/23/17 11/23/17 11/23/17 05:55 08:16 08:16 Creatine Kinase 100 CK-MB (CK-2) 0.69 Troponin I < 0.012 NT-Pro-B Natriuret Pep 812 11/23/17 11/23/17 11/23/17 15:40 15:40 21:58 Creatine Kinase 88 85 CK-MB (CK-2) 0.59 Troponin I < 0.012 NT-Pro-B Natriuret Pep 11/23/17 22:10 Creatine Kinase CK-MB (CK-2) 0.55 Troponin I < 0.012 NT-Pro-B Natriuret Pep EKG Comments: Telemetry strips shows sinus rhythm without any sustained tacky or bradycardia arrhythmias. Twelve-lead EKG is relatively unchanged. Impressions: Chest X-Ray 11/20/17 15:15 IMPRESSION: HEART ENLARGED WITHOUT FAILURE. NO OTHER SIGNIFICANT RADIOGRAPHIC FINDING IN THE CHEST. Chest/Abdomen CTA 11/22/17 00:00 IMPRESSION: No acute consolidations or pleural effusions. NO PULMONARY EMBOLI. Other findings as noted above. Assessment & Plan - Diagnosis (1) Chest pain Qualifiers: Chest pain type: unspecified Qualified Code(s): R07.9 - Chest pain, unspecified Is this a current diagnosis for this admission?: Yes (2) CAD S/P percutaneous coronary angioplasty Is this a current diagnosis for this admission?: Yes (3) Chronic atrial fibrillation Is this a current diagnosis for this admission?: Yes (4) Depression Qualifiers: Depression Type: unspecified Qualified Code(s): F32.9 - Major depressive disorder, single episode, unspecified Is this a current diagnosis for this admission?: Yes (5) Diabetes mellitus type 2 in obese Is this a current diagnosis for this admission?: Yes (6) Hyperlipidemia associated with type 2 diabetes mellitus Is this a current diagnosis for this admission?: Yes (7) Hypertension Qualifiers: Hypertension type: essential hypertension Qualified Code(s): I10 - Essential (primary) hypertension Is this a current diagnosis for this admission?: Yes (8) Morbid (severe) obesity with alveolar hypoventilation Is this a current diagnosis for this admission?: Yes (9) Congestive heart failure Qualifiers: Heart failure type: diastolic Heart failure chronicity: unspecified Qualified Code(s): I50.30 - Unspecified diastolic (congestive) heart failure Is this a current diagnosis for this admission?: Yes (10) Generalized anxiety disorder with panic attacks Is this a current diagnosis for this admission?: Yes (11) Gastroesophageal reflux disease Qualifiers: Esophagitis presence: esophagitis presence not specified Qualified Code(s) : K21.9 - Gastro-esophageal reflux disease without esophagitis Is this a current diagnosis for this admission?: Yes - Notes Notes: Chest pain: This has resolved. Today patient underwent pharmacologic nuclear stress test part 1. No significant EKG changes were noted. There are multiple differential diagnosis. Full report will be available tomorrow after rest imaging is completed. Will try optimize medical management. Coronary artery disease: Patient is status post coronary angioplasty. Continue aspirin, Plavix, statins, beta blockers. Also continue angiotensin receptor blockers. Congestive heart failure: Most likely related to diastolic dysfunction. It may be worthwhile to consider repeating the echocardiogram. Continue IV diuretics for now. Chronic atrial fibrillation: Continue chronic Coumadin therapy. Continue rate control with beta-david. May add Cardizem if needed. Depression: Patient may benefit from antidepressant. However patient does not want to admit that she is depressed. Diabetes: Recommend good control of blood sugar. However should avoid any hypoglycemia and hyperglycemia. Patient being expertly managed by primary care M.D/hospitalist. Hypertension: Reasonably well controlled. Blood pressure goal in this patient is 135/85 or less. This was discussed with the patient. Currently blood pressure under reasonable control. Better medication for this patient are LILY inhibitor/ARB/beta david etc. discussed side effects of uncontrolled hypertension and also severe hypotension. Obesity: Patient has been encouraged in weight loss. Probable underlying sleep apnea syndrome: Patient will benefit from a sleep evaluation. Patient lab sleep study was more than 5 years ago and is worth repeating. Generalized anxiety disorder: Patient will benefit from SSRI agent and also as needed anxiolytics. Gastroesophageal reflux disease: This is strongly suspected. Empiric proton pump therapy is being recommended. - Time Time with patient: Greater than 35 minutes - Nuclear stress test procedure was explained to the patient in detail. Risk benefits were discussed. Informed consent was obtained. Patient underwent nuclear stress test without any complications. Results to be available tomorrow. Chest pain etiology reviewed with the patient. Patient was informed that she did not have a heart attack and the chest pain she had yesterday was unlikely from the heart but she could still have blockages. Medications reviewed and adjusted accordingly: Yes
[2017-11-24] MEDS: INSULIN GLARGINE,HUM.REC.ANLOG 300 UNIT/3 ML INSULN.PEN SUBCUT SCH (22:16)
[2017-11-24] MEDS: WARFARIN SODIUM 5 MG TABLET PO SCH (22:16)
[2017-11-24] MEDS: ATORVASTATIN CALCIUM 40 MG TABLET PO SCH (22:16)
[2017-11-25] MEDS: LANSOPRAZOLE 30 MG TAB.RAP.DR PO SCH ×2 (05:30→17:55)
[2017-11-25] MEDS: CLONIDINE HCL 0.1 MG TABLET PO SCH ×3 (05:35→22:27)
[2017-11-25 06:23] LABS: ANION GAP 6 (5-19); BLOOD UREA NITROGEN 24 mg/dL (7-20); CARBON DIOXIDE 27 mmol/L (22-30); CHLORIDE 108 mmol/L (98-107); GLUCOSE 122 mg/dL (75-110); SODIUM 140.9 mmol/L (137-145)
[2017-11-25] MEDS: METFORMIN HCL 500 MG TABLET PO SCH ×2 (12:04→17:55)
[2017-11-25] MEDS: VALSARTAN 160 MG TABLET PO SCH (12:04)
--- NOTE | 2017-11-25 12:06 | DRAGON STRESS TEST REPORT ---
INTRAVENOUS LEXISCAN CARDIOLITE STRESS TEST USING SINGLE PHOTON EMMISION COMPUTERIZED TOMOGRAPHIC. DATE OF PROCEDURE: November 24, 2017, INDICATION : Chest pain CARDIAC RISK FACTORS: Diabetes, hypertension, dyslipidemia, prior history of CAD with stent placement RESTING EKG: Sinus rhythm with minor nonspecific ST-T wave changes STRESS EKG: No significant ST segment changes noted with LexiScan bolus REASON FOR TERMINATION: Protocol. PROCEDURE REPORT: Baseline heart rate 77 beats per minute with blood pressure of 144/86. Patient had no significant complaints. Patient was bolused with Lexiscan 0.4 mg intravenously followed by saline bolus. Heart rate at 2 minutes post bolus 76 with a blood pressure of 153/85. 3 minutes post bolus heart rate 77 with blood pressure of 161/91. No significant EKG changes were noted. Patient had no significant complaints during the procedure or postprocedure. Patient injected with Aminophyllin 75 mg at 3 minutes or later after Lexiscan bolus. CONCLUSIONS: Normal EKG and hemodynamic response to IV LexiScan. NUCLEAR DATA: At rest, day 2, the patient was given 41.1 millicuries of technetium 99 sestamibi injected intravenously. As per protocol rest gated SPECT images were obtained. On day of stress test, which was a day 1, the patient was given intravenous LexiScan at a dose of 0.4 mg in 5 mL intravenously, followed by flush with normal saline. Subsequently the stress dose of 42.3 millicuries of technetium 99 sestamibi was injected intravenously. As per protocol stress gated images were obtained. NUCLEAR INTERPRETATION: Both raw and processed data were used for interpretation. Visual, qualitative, computer-generated quantitative data was used. There was good myocardial uptake of technetium compound. Motion artifact and soft tissue attenuations were noted. Increased visceral uptake was noted. No definitive areas of transient perfusion defect noted, No definitive areas of fixed perfusion defect or scars noted. Marked breast attenuation was noted. Decreased uptake noted in the mid and distal anterior wall on both rest and stress images, felt to be related to breast attenuation artifact as there were no corresponding wall motion abnormalities, however an area of mild ischemia or mild fixed defect cannot be entirely ruled out. EKG gated imaging showed LV EF at 59 %, rest and stress gated EF similar visually. T. I D. ratio was 1.11. Lung heart ratio noted to be within normal limits 0.17. No significant extracardiac and abnormal radiotracer activities were noted. RV free wall uptake was noted to be WNL. IMPRESSION: Also refer to comments under nuclear interpretation. Also test results needs to be interpreted in the context of pretest probability. 1. No definitive areas of transient perfusion defect noted. 2. There is no definitive scintigraphic evidence of myocardial infarction/scar. 3. EKG gated imaging shows left ventricular ejection fraction of approx. 59 %. No definite regional wall motion normality's were noted on gated imaging. 4. Clinical correlation requested as occasionally single vessel disease or balanced ischemia could be missed. In approximately 10% of the cases Lexiscan may not cause adequate vasodilatory stress. RECOMMENDATIONS: Aggressive risk factor modification and medical management. Further evaluation may be needed if continued symptoms or other high risk indicators are noted on clinical evaluation. Close cardiology follow-up is also recommended. Clinical correlation with echocardiogram derived ejection fraction. Inability to exercise by itself can lead to increased cardiovascular event risks. Consider cardiology consultation and or follow-up if clinically indicated. I am available for cardiology evaluation and consultation if requested by the test lead application testing, unless patient already has a cash manager. PABLO
[2017-11-25] MEDS: POTASSIUM CHLORIDE 10 MEQ TABLET.SA PO SCH (12:32)
[2017-11-25] MEDS: HYDRALAZINE HCL 50 MG TABLET PO SCH ×2 (12:32→22:26)
[2017-11-25] MEDS: RANOLAZINE 500 MG TAB.SR.12H PO SCH ×2 (12:33→22:26)
[2017-11-25] MEDS: FUROSEMIDE 20 MG TABLET PO SCH (12:33)
[2017-11-25] MEDS: ASPIRIN 81 MG TABLET, CHEWABLE PO SCH (12:33)
[2017-11-25] MEDS: METOPROLOL SUCCINATE 50 MG TAB.SR.24H PO SCH ×2 (12:33→22:28)
[2017-11-25] MEDS: MAGNESIUM OXIDE 400 MG TABLET PO SCH (12:33)
[2017-11-25] MEDS: INSULIN LISPRO 100 UNIT/ML 3 ML VIAL SUBCUT SCH ×2 (12:34→16:44)
--- NOTE | 2017-11-25 12:47 | PDOC PROGRESS REPORT ---
Subjective Progress Note for:: 11/25/17 Subjective:: Patient is currently doing betterDenied any chest pain denied any shortness of the breath Patient scheduled for the second part of the stress test today Reason For Visit: ACUTE ON CHRONIC CHF Physical Exam Vital Signs: Temp Pulse Resp BP Pulse Ox 98.1 F 76 18 121/57 L 98 11/25/17 11:25 11/25/17 11:25 11/25/17 11:25 11/25/17 11:25 11/25/17 11:25 Intake & Output 11/24/17 11/25/17 11/26/17 06:59 06:59 06:59 Intake Total 488 998 Output Total 1000 600 Balance -512 398 General appearance: PRESENT: no acute distress, well-developed, well-nourished Head exam: PRESENT: atraumatic, normocephalic Eye exam: PRESENT: conjunctiva pink, EOMI, PERRLA. ABSENT: scleral icterus Ear exam: PRESENT: normal external ear exam Mouth exam: PRESENT: moist, tongue midline Neck exam: PRESENT: full ROM. ABSENT: carotid bruit, JVD, lymphadenopathy, thyromegaly Respiratory exam: PRESENT: clear to auscultation johanna Cardiovascular exam: PRESENT: RRR. ABSENT: diastolic murmur, rubs, systolic murmur Pulses: PRESENT: normal dorsalis pedis pul, +2 pedal pulses bilateral Vascular exam: PRESENT: normal capillary refill GI/Abdominal exam: PRESENT: normal bowel sounds, soft. ABSENT: distended, guarding, mass, organolmegaly, rebound, tenderness Rectal exam: PRESENT: deferred Extremities exam: ABSENT: pedal edema Musculoskeletal exam: PRESENT: ambulatory Neurological exam: PRESENT: alert, awake, oriented to person, oriented to place , oriented to time, oriented to situation, CN II-XII grossly intact. ABSENT: motor sensory deficit Psychiatric exam: PRESENT: appropriate affect, normal mood. ABSENT: homicidal ideation, suicidal ideation Skin exam: PRESENT: dry, intact, warm. ABSENT: cyanosis, rash Results Laboratory Results: 11/23/17 05:55 11/25/17 04:53 11/25/17 04:53 Sodium 140.9 Potassium 4.0 Chloride 108 H Carbon Dioxide 27 Anion Gap 6 BUN 24 H Creatinine 1.00 Est GFR ( Amer) > 60 Est GFR (Non-Af Amer) 56 L Glucose 122 H Calcium 9.0 11/23/17 11/23/17 11/23/17 05:55 08:16 08:16 Creatine Kinase 100 CK-MB (CK-2) 0.69 Troponin I < 0.012 NT-Pro-B Natriuret Pep 812 11/23/17 11/23/17 11/23/17 15:40 15:40 21:58 Creatine Kinase 88 85 CK-MB (CK-2) 0.59 Troponin I < 0.012 NT-Pro-B Natriuret Pep 11/23/17 22:10 Creatine Kinase CK-MB (CK-2) 0.55 Troponin I < 0.012 NT-Pro-B Natriuret Pep Impressions: Chest X-Ray 11/20/17 15:15 IMPRESSION: HEART ENLARGED WITHOUT FAILURE. NO OTHER SIGNIFICANT RADIOGRAPHIC FINDING IN THE CHEST. Chest/Abdomen CTA 11/22/17 00:00 IMPRESSION: No acute consolidations or pleural effusions. NO PULMONARY EMBOLI. Other findings as noted above. Assessment & Plan - Diagnosis (1) CAD S/P percutaneous coronary angioplasty Is this a current diagnosis for this admission?: Yes Plan: We will wait for the stress test report follow with cardiology (2) CHF, acute on chronic Qualifiers: Heart failure type: unspecified Qualified Code(s): I50.9 - Heart failure, unspecified Is this a current diagnosis for this admission?: Yes Plan: Continues to Lasix (3) Chronic atrial fibrillation Is this a current diagnosis for this admission?: Yes Plan: Continues to mitral propranolol and continues on Coumadin (4) Diabetes mellitus type 2 in obese Is this a current diagnosis for this admission?: Yes Plan: Currently stable (5) Hypertension Qualifiers: Hypertension type: essential hypertension Qualified Code(s): I10 - Essential (primary) hypertension Is this a current diagnosis for this admission?: Yes Plan: Continues current medication (6) Morbid (severe) obesity with alveolar hypoventilation Is this a current diagnosis for this admission?: Yes (7) Palpitations Is this a current diagnosis for this admission?: Yes Plan: Follow with cardiology (8) Shortness of breath Is this a current diagnosis for this admission?: Yes - Time Time Spent with patient: 15-24 minutes Medications reviewed and adjusted accordingly: Yes Anticipated discharge: Home Within: within 24 hours - Inpatient Certification Medical Necessity: Need Close Monitoring Due to Risk of Patient Decompensation Post Hospital Care: D/C Campground Hand Documentation - Plan Summary Plan Summary: The patient remained stable and the stress test is all negative hopefully discharge in next 24 hours
[2017-11-25 13:20] LABS: INTERNATIONAL RATION (INR) 2.43; PROTHROMBIN TIME 27.6 SEC (11.4-15.4)
--- NOTE | 2017-11-25 13:39 | PDOC PROGRESS REPORT ---
Subjective Progress Note for:: 11/25/17 Subjective:: Patient claims she has walked in the hallway without any chest pain however later on, white blood being drawn for PT, she complained of some chest discomfort. Nuclear stress test results were discussed. Significant breast attenuation artifact were noted but no definitive ischemia or fixed defect noted. EKG gated EF was noted to be satisfactory. These results were discussed with the patient. Reason For Visit: ACUTE ON CHRONIC CHF Physical Exam Vital Signs: Temp Pulse Resp BP Pulse Ox 98.1 F 76 18 121/57 L 98 11/25/17 11:25 11/25/17 11:25 11/25/17 11:25 11/25/17 11:25 11/25/17 11:25 Intake & Output 11/24/17 11/25/17 11/26/17 06:59 06:59 06:59 Intake Total 488 998 Output Total 1000 600 Balance -512 398 Exam: GENERAL: well-nourished and in no acute distress. Alert and oriented x3 HEAD: Atraumatic, normocephalic. EYES: Pupils equal round and reactive to light, extraocular movements intact, sclera anicteric, conjunctiva are normal. ENT: TMs normal, nares patent, oropharynx clear without exudates. Moist mucous membranes. No oral ulcerations or bleeding gums noted NECK: supple without lymphadenopathy. Trachea is central. No cervical or axillary lymphadenopathy noted. Carotids are 2+, JVD WNL LUNGS: Respiration seems nonlabored, no significant accessory muscle action noted. Breath sounds clear to auscultation bilaterally and equal noted. No wheezes rales or rhonchi noted. No significant dullness noted on percussion. CHEST: Palpation of the chest wall shows no significant chest wall tenderness. No other significant abnormalities noted. HEART: Pant[employer] MOTION PICTURE SET GRIP, No PSH, 1/6 SYLVAIN aortic area, 1/6 muro systolic murmur mitral area, no rubs, no gallops. ABDOMEN: Soft, no significant tenderness appreciated, normoactive bowel sounds. No guarding, no rebound. No rigidity noted . No masses appreciated. EXTREMITIES: Pedal pulses are 1-2+, no calf tenderness noted. No clubbing or cyanosis.trace to 1+ pedal edema noted NEUROLOGICAL: Focused neurological exam showed no significant neurologic deficit. Normal speech, no focal weakness appreciated. PSYCH: Normal mood, normal affect. Judgment and insight within normal limits. SKIN: No significant ecchymosis, skin is noted to be warm. MUSCULOSKELETAL EXAM: No significant acute joint swelling noted. Results Laboratory Results: 11/23/17 05:55 11/25/17 04:53 11/25/17 04:53 Sodium 140.9 Potassium 4.0 Chloride 108 H Carbon Dioxide 27 Anion Gap 6 BUN 24 H Creatinine 1.00 Est GFR ( Amer) > 60 Est GFR (Non-Af Amer) 56 L Glucose 122 H Calcium 9.0 11/23/17 11/23/17 11/23/17 05:55 08:16 08:16 Creatine Kinase 100 CK-MB (CK-2) 0.69 Troponin I < 0.012 NT-Pro-B Natriuret Pep 812 11/23/17 11/23/17 11/23/17 15:40 15:40 21:58 Creatine Kinase 88 85 CK-MB (CK-2) 0.59 Troponin I < 0.012 NT-Pro-B Natriuret Pep 11/23/17 22:10 Creatine Kinase CK-MB (CK-2) 0.55 Troponin I < 0.012 NT-Pro-B Natriuret Pep EKG Comments: Sinus rhythm, no sustained tachycardia or bradycardia arrhythmias noted Impressions: Chest X-Ray 11/20/17 15:15 IMPRESSION: HEART ENLARGED WITHOUT FAILURE. NO OTHER SIGNIFICANT RADIOGRAPHIC FINDING IN THE CHEST. Chest/Abdomen CTA 11/22/17 00:00 IMPRESSION: No acute consolidations or pleural effusions. NO PULMONARY EMBOLI. Other findings as noted above. Assessment & Plan - Diagnosis (1) Chest pain Qualifiers: Chest pain type: unspecified Qualified Code(s): R07.9 - Chest pain, unspecified Is this a current diagnosis for this admission?: Yes (2) CAD S/P percutaneous coronary angioplasty Is this a current diagnosis for this admission?: Yes (3) Depression Qualifiers: Depression Type: unspecified Qualified Code(s): F32.9 - Major depressive disorder, single episode, unspecified Is this a current diagnosis for this admission?: Yes (4) Diabetes mellitus type 2 in obese Is this a current diagnosis for this admission?: Yes (5) Hyperlipidemia associated with type 2 diabetes mellitus Is this a current diagnosis for this admission?: Yes (6) Hypertension Qualifiers: Hypertension type: essential hypertension Qualified Code(s): I10 - Essential (primary) hypertension Is this a current diagnosis for this admission?: Yes (7) Morbid (severe) obesity with alveolar hypoventilation Is this a current diagnosis for this admission?: Yes (8) Congestive heart failure Qualifiers: Heart failure type: diastolic Heart failure chronicity: unspecified Qualified Code(s): I50.30 - Unspecified diastolic (congestive) heart failure Is this a current diagnosis for this admission?: Yes (9) Generalized anxiety disorder with panic attacks Is this a current diagnosis for this admission?: Yes (10) Gastroesophageal reflux disease Qualifiers: Esophagitis presence: esophagitis presence not specified Qualified Code(s) : K21.9 - Gastro-esophageal reflux disease without esophagitis Is this a current diagnosis for this admission?: Yes (11) Atrial fibrillation Qualifiers: Atrial fibrillation type: paroxysmal Qualified Code(s): I48.0 - Paroxysmal atrial fibrillation Is this a current diagnosis for this admission?: Yes - Notes Notes: Chest pain: Overall condition is improved. This was evaluated with a nuclear stress test. Nuclear stress test was negative for any significant areas of ischemia or any significant areas of scar. The nuclear stress test is felt to be relatively low risk. Patient informed that occasionally single-vessel disease and balanced ischemia could be missed. Patient advised aggressive risk factor modification and medical therapy. Patient informed that further evaluation may become necessary if symptoms worsens or there is a development of new symptoms indicative of angina or angina equivalent symptom. Will try optimize medical management. Would also recommend evaluation for noncardiac chest pain if clinically felt necessary. Have ordered a repeat EKG since patient did complain of some chest pain. Coronary artery disease: Patient is status post coronary angioplasty. Continue aspirin, Plavix, statins, beta blockers. Also continue angiotensin receptor blockers. Congestive heart failure: Most likely related to diastolic dysfunction. It may be worthwhile to consider repeating the echocardiogram. Continue IV diuretics for now. Paroxysmal atrial fibrillation: Continue chronic Coumadin therapy. Continue rate control with beta-david. May add Cardizem if needed. Day before yesterday's EKG shows sinus rhythm. Also during the stress test patient was noted to be in sinus rhythm. Depression: Patient may benefit from antidepressant. However patient does not want to admit that she is depressed. Diabetes: Recommend good control of blood sugar. However should avoid any hypoglycemia and hyperglycemia. Patient being expertly managed by primary care M.D/hospitalist. Hypertension: Reasonably well controlled. Blood pressure goal in this patient is 135/85 or less. This was discussed with the patient. Currently blood pressure under reasonable control. Better medication for this patient are LILY inhibitor/ARB/beta david etc. discussed side effects of uncontrolled hypertension and also severe hypotension. Obesity: Patient has been encouraged in weight loss. Probable underlying sleep apnea syndrome: Patient will benefit from a sleep evaluation. Patient lab sleep study was more than 5 years ago and is worth repeating. Generalized anxiety disorder: Patient will benefit from SSRI agent and also as needed anxiolytics. Gastroesophageal reflux disease: This is strongly suspected. Empiric proton pump therapy is being recommended. - Time Time with patient: Greater than 35 minutes - CODE STATUS was discussed, patient remains full code. Surrogate decision-maker unchanged. Multiple medical problems were addressed. More than 50% of the time spent coordinating care, discussing management plans with involved caregivers. Management plans discussed with involved personnels. Medical decision making was of moderate to high complexity, patient's has multiple comorbidities. Medications reviewed and adjusted accordingly: Yes
--- NOTE | 2017-11-25 22:04 | EKG REPORT ---
SEVERITY:- ABNORMAL ECG - SINUS RHYTHM LVH WITH SECONDARY REPOLARIZATION ABNORMALITY : Confirmed by: Ke Shahid 25-Nov-2017 22:04:05
[2017-11-25] MEDS: ATORVASTATIN CALCIUM 40 MG TABLET PO SCH (22:28)
[2017-11-25] MEDS: WARFARIN SODIUM 5 MG TABLET PO SCH (22:28)
[2017-11-25] MEDS: INSULIN GLARGINE,HUM.REC.ANLOG 300 UNIT/3 ML INSULN.PEN SUBCUT SCH (22:29)
[2017-11-26] MEDS: CLONIDINE HCL 0.1 MG TABLET PO SCH ×3 (05:33→21:31)
[2017-11-26] MEDS: LANSOPRAZOLE 30 MG TAB.RAP.DR PO SCH ×2 (05:34→16:57)
[2017-11-26] MEDS: METFORMIN HCL 500 MG TABLET PO SCH ×2 (08:13→16:58)
[2017-11-26] MEDS: INSULIN LISPRO 100 UNIT/ML 3 ML VIAL SUBCUT SCH ×3 (08:16→18:00)
[2017-11-26 09:27] LABS: ANION GAP 6 (5-19); BLOOD UREA NITROGEN 21 mg/dL (7-20); CALCIUM 9.5 mg/dL (8.4-10.2); CARBON DIOXIDE 26 mmol/L (22-30); CHLORIDE 109 mmol/L (98-107); GLUCOSE 125 mg/dL (75-110); POTASSIUM 4.4 mmol/L (3.6-5.0); SODIUM 141.3 mmol/L (137-145)
[2017-11-26] MEDS ORDERED: (PENDING PHARMACY ID) (Dulaglutide [Trulicity] 1.5 MG) SQ SCH (10:00)
[2017-11-26] MEDS: HYDRALAZINE HCL 50 MG TABLET PO SCH ×2 (10:05→21:32)
[2017-11-26] MEDS: FUROSEMIDE 20 MG TABLET PO SCH (10:05)
[2017-11-26] MEDS: VALSARTAN 160 MG TABLET PO SCH (10:05)
[2017-11-26] MEDS: MAGNESIUM OXIDE 400 MG TABLET PO SCH (10:06)
[2017-11-26] MEDS: METOPROLOL SUCCINATE 50 MG TAB.SR.24H PO SCH ×2 (10:06→21:32)
[2017-11-26] MEDS: POTASSIUM CHLORIDE 10 MEQ TABLET.SA PO SCH (10:06)
[2017-11-26] MEDS: ASPIRIN 81 MG TABLET, CHEWABLE PO SCH (10:06)
[2017-11-26] MEDS: RANOLAZINE 500 MG TAB.SR.12H PO SCH ×2 (10:08→21:34)
--- NOTE | 2017-11-26 10:36 | PDOC TRANSFER SUMMARY ---
General Admission Date/PCP: 11/22/17 14:00 BUTCH DIAZ MD Transfer Date: 11/26/17 Accepting Facility: [facility] Resuscitation Status: Full Code - Transfer Diagnosis (1) CAD S/P percutaneous coronary angioplasty Is this a current diagnosis for this admission?: Yes Diagnosis Summary: Patient's still persistent chest pain and the stress test is all stable bacteria with a significant history of the CAD patients need a cardiac cath (2) CHF, acute on chronic Is this a current diagnosis for this admission?: Yes Diagnosis Summary: Currently on the Lasix (3) Chronic atrial fibrillation Is this a current diagnosis for this admission?: Yes Diagnosis Summary: Currently on Coumadin (4) Diabetes mellitus type 2 in obese Is this a current diagnosis for this admission?: Yes Diagnosis Summary: Currently stable (5) Hypertension Is this a current diagnosis for this admission?: Yes Diagnosis Summary: Continues current medication (6) Morbid (severe) obesity with alveolar hypoventilation Is this a current diagnosis for this admission?: Yes (7) Palpitations Is this a current diagnosis for this admission?: Yes Diagnosis Summary: Patients with some run of V. tach discussed with the Dr. Shahid and suggest the patient's to the cardiac cath (8) Shortness of breath Is this a current diagnosis for this admission?: Yes Diagnosis Summary: Patient CT angiogram was negative patient have a sleep study done in the past and no need for the CPAP most likely underlying coronary disease need a cardiac cath - Transfer Medications Home Medications: Atorvastatin Calcium [Lipitor 40 mg Tablet] 40 mg PO QHS 06/10/12 Hydralazine HCl [Apresoline 50 mg Tablet] 50 mg PO Q8 06/10/12 Insulin Aspart [Novolog] 30 unit SQ MEALS 06/10/12 Insulin Glargine,Hum.rec.anlog [Lantus] 30 unit SQ QHS 06/10/12 Magnesium Oxide 400 mg PO DAILY 06/10/12 Omeprazole 20 mg PO DAILY 06/10/12 Metformin HCl [Glumetza] 500 mg PO BID 11/03/12 Aspirin [Aspirin 81 mg Chewable Tablet] 81 mg PO DAILY 03/14/13 Potassium Chloride [Klor-Con 10 Meq Tablet.sa] 10 meq PO DAILY 03/14/13 Furosemide [Lasix 20 mg Tablet] 40 mg PO DAILY 03/31/13 Warfarin Sodium [Coumadin] 10 mg PO QHS 03/31/13 Celecoxib [Celecoxib] 100 mg PO BID 11/20/17 Clonidine HCl [Clonidine HCl] 0.3 mg PO Q8 11/20/17 Dulaglutide [Trulicity] 1.5 mg SQ Fr@1000 11/20/17 Metoprolol Tartrate [Metoprolol Tartrate] 100 mg PO Q12 11/20/17 Transfer Medications: Current Medications Acetaminophen (Tylenol 325 Mg Tablet) 650 mg PO Q6HP PRN PRN Reason: FOR PAIN Stop: 12/21/17 15:00 Last Admin: 11/22/17 19:38 Dose: 650 mg Aspirin (Aspirin 81 Mg Chewable Tablet) 81 mg PO DAILY [facility] Stop: 12/21/17 09:59 Last Admin: 11/26/17 10:06 Dose: 81 mg Atorvastatin Calcium (Lipitor 40 Mg Tablet) 40 mg PO QHS ANGE Stop: 12/21/17 21:59 Last Admin: 11/25/17 22:28 Dose: 40 mg Clonidine (Catapres 0.1 Mg Tablet) 0.3 mg PO Q8 ANGE Stop: 12/21/17 05:59 Last Admin: 11/26/17 05:33 Dose: 0.3 mg Dextrose (Dextrose Inj 50% Syringe (25 Gm/50 Ml)) 12.5 gm IV PRN PRN; Protocol PRN Reason: FOR BG 50-69 IN ALERT PATIENT Stop: 12/20/17 19:11 Dextrose (Dextrose Inj 50% Syringe (25 Gm/50 Ml)) 25 gm IV PRN PRN; Protocol PRN Reason: PER PROTOCOL Stop: 12/20/17 19:11 Furosemide (Lasix 20 Mg Tablet) 20 mg PO DAILY ANGE Stop: 12/24/17 09:59 Last Admin: 11/26/17 10:05 Dose: 20 mg Glucagon (Glucagen Inj 1 Mg Vial) 1 mg IM PRN PRN; Protocol PRN Reason: Evaluate for BG < 70 Stop: 12/20/17 19:11 Glucose (Glutose 40% Gel 15 Gm Tube) 15 gm PO PRN PRN; Protocol PRN Reason: FOR BG 50-69 IN ALERT PATIENT Stop: 12/20/17 19:11 Glucose (Glutose 40% Gel 15 Gm Tube) 30 gm PO PRN PRN; Protocol PRN Reason: FOR BG < 50 IN ALERT PATIENT Stop: 12/20/17 19:11 Hydralazine HCl (Apresoline 50 Mg Tablet) 50 mg PO Q12 [facility] Stop: 12/22/17 09:59 Last Admin: 11/26/17 10:05 Dose: 50 mg Insulin Glargine (Lantus Insulin Inj 300 Unit/3 Ml Pen) 30 unit SUBCUT QHS ANGE Stop: 12/21/17 21:59 Last Admin: 11/25/17 22:29 Dose: 30 unit Insulin Human Lispro (Humalog Insulin 100 Unit/1 Ml 3 Ml Vial) 0 - 12 unit SUBCUT ACHSP PRN; Protocol PRN Reason: PER PROTOCOL Stop: 12/20/17 19:11 Last Admin: 11/22/17 17:29 Dose: 2 unit Insulin Human Lispro (Humalog Insulin 100 Unit/1 Ml 3 Ml Vial) 30 unit SUBCUT MEALS [facility] Stop: 12/21/17 07:59 Last Admin: 11/26/17 08:16 Dose: Not Given Lansoprazole (Prevacid 30 Mg Odt Tablet) 30 mg PO BID@0600,1700 [facility] Stop: 12/23/17 16:59 Last Admin: 11/26/17 05:34 Dose: 30 mg Magnesium Oxide (Mag-Ox 400 Mg Tablet) 400 mg PO DAILY [facility] Stop: 12/21/17 09:59 Last Admin: 11/26/17 10:06 Dose: 400 mg Metformin HCl (Glucophage 500 Mg Tablet) 500 mg PO BIDBS [facility] Stop: 12/21/17 07:59 Last Admin: 11/26/17 08:13 Dose: 500 mg Metoprolol Succinate (Toprol Xl 50 Mg Tab.Sr) 100 mg PO Q12 [facility] Stop: 12/23/17 21:59 Last Admin: 11/26/17 10:06 Dose: 100 mg Nitroglycerin (Nitrostat 0.4 Mg (1/150 Gr) Tabs 25/Bottle) 1 tab SL Q5MP PRN PRN Reason: CHEST PAIN Stop: 12/23/17 08:20 Patient Own Medication (Dulaglutide [Trulicity]) 1.5 mg SQ .Fr@1000 [facility] Stop: 12/26/17 09:59 Potassium Chloride (Klor-Con 10 Meq Tablet.Sa) 10 meq PO DAILY [facility] Stop: 12/21/17 09:59 Last Admin: 11/26/17 10:06 Dose: 10 meq Ranolazine (Ranexa 500 Mg Tab.Sr) 500 mg PO Q12 [facility] Stop: 12/23/17 21:59 Last Admin: 11/26/17 10:08 Dose: 500 mg Ranolazine (Ranexa 500 Mg Tab.Sr) 1,000 mg PO Q12 ANGE Stop: 12/26/17 21:59 Ranolazine (Ranexa 500 Mg Tab.Sr) 1,000 mg PO NOW ONE Stop: 11/26/17 11:01 Valsartan (Diovan 160 Mg Tablet) 320 mg PO DAILY ANGE Stop: 12/21/17 09:59 Last Admin: 11/26/17 10:05 Dose: 320 mg Warfarin Sodium (Coumadin 5 Mg Tablet) 10 mg PO QHS [facility] Stop: 12/21/17 21:59 Last Admin: 11/25/17 22:28 Dose: 10 mg - Allergies Allergies/Adverse Reactions: naproxen [From Naprosyn] Allergy (Severe, Verified 11/20/17 15:15) FEELS "ON FIRE" Penicillins Allergy (Intermediate, Verified 11/20/17 15:15) broke out in white blisters niacin [Niacin] Allergy (Mild, Verified 11/20/17 15:15) "on fire" oxycodone HCl [From Percocet] Allergy (Mild, Verified 11/20/17 15:15) itchy propoxyphene napsylate [From Darvocet-N 100] Allergy (Mild, Verified 11/20/17 15 :15) itchy - Diet/Activity Discharge Diet: Cardiac, Diabetic Hospital Course Hospital Course: This is a 62-year-old female with a significant history of CAD status post stent placement 2009 with a history of the type 2 diabetes hypertension's hyperlipidemia and history of the congestive heart failure came to the emergency department with a complaint of palpitation and the shortness of the breath Patient initial workup including the EKG and cardiac enzyme was all stable patient has a chronic A. fib and a chronic Coumadin and a beta-david Patient's also underwent for the CT angiograms which is negative for any acute pulmonary finding Patients underwent for the Cardiolite stress test which is also negative Patient still complained with chest pain and palpitations in the Dr. Shahid the counter server seen the patient and suggest the patient's need a cardiac cath and further evaluations Patient's otherwise other medical problem was stable Physical Exam Vital Signs: Temp Pulse Resp BP Pulse Ox 98.8 F 72 17 107/52 L 100 11/26/17 06:49 11/26/17 07:00 11/26/17 06:49 11/26/17 06:49 11/26/17 06:49 Intake & Output 11/25/17 11/26/17 11/27/17 06:59 06:59 06:59 Intake Total 998 1798 Output Total 600 Balance 398 1798 General appearance: PRESENT: no acute distress, well-developed, well-nourished Head exam: PRESENT: atraumatic, normocephalic Eye exam: PRESENT: conjunctiva pink, EOMI, PERRLA. ABSENT: scleral icterus Ear exam: PRESENT: normal external ear exam Mouth exam: PRESENT: moist, tongue midline Neck exam: ABSENT: carotid bruit, JVD, lymphadenopathy, thyromegaly Respiratory exam: PRESENT: clear to auscultation johanna. ABSENT: rales, rhonchi, wheezes Cardiovascular exam: PRESENT: RRR. ABSENT: diastolic murmur, rubs, systolic murmur Pulses: PRESENT: normal dorsalis pedis pul Vascular exam: PRESENT: normal capillary refill GI/Abdominal exam: PRESENT: normal bowel sounds, soft. ABSENT: distended, guarding, mass, organolmegaly, rebound, tenderness Rectal exam: PRESENT: deferred Extremities exam: PRESENT: full ROM. ABSENT: calf tenderness, clubbing, pedal edema Neurological exam: PRESENT: alert, awake, oriented to person, oriented to place , oriented to time, oriented to situation, CN II-XII grossly intact. ABSENT: motor sensory deficit Psychiatric exam: PRESENT: appropriate affect, normal mood. ABSENT: homicidal ideation, suicidal ideation Skin exam: PRESENT: dry, intact, warm. ABSENT: cyanosis, rash Results Laboratory Results: 11/23/17 05:55 11/26/17 08:44 11/26/17 08:44 Sodium 141.3 Potassium 4.4 Chloride 109 H Carbon Dioxide 26 Anion Gap 6 BUN 21 H Creatinine 1.01 Est GFR ( Amer) > 60 Est GFR (Non-Af Amer) 56 L Glucose 125 H Calcium 9.5 Magnesium 2.0 11/23/17 11/23/17 11/23/17 05:55 08:16 08:16 Creatine Kinase 100 CK-MB (CK-2) 0.69 Troponin I < 0.012 NT-Pro-B Natriuret Pep 812 11/23/17 11/23/17 11/23/17 15:40 15:40 21:58 Creatine Kinase 88 85 CK-MB (CK-2) 0.59 Troponin I < 0.012 NT-Pro-B Natriuret Pep 11/23/17 22:10 Creatine Kinase CK-MB (CK-2) 0.55 Troponin I < 0.012 NT-Pro-B Natriuret Pep Impressions: Chest X-Ray 11/20/17 15:15 IMPRESSION: HEART ENLARGED WITHOUT FAILURE. NO OTHER SIGNIFICANT RADIOGRAPHIC FINDING IN THE CHEST. Chest/Abdomen CTA 11/22/17 00:00 IMPRESSION: No acute consolidations or pleural effusions. NO PULMONARY EMBOLI. Other findings as noted above. Plan Time Spent: Greater than 30 Minutes - Patient's transfer when the bed available discussed with the patient and the counter server
[2017-11-26] MEDS ORDERED: RANOLAZINE 500 MG TAB.SR.12H PO ONE ×2 (11:00→12:00)
--- NOTE | 2017-11-26 11:55 | PDOC PROGRESS REPORT ---
Subjective Progress Note for:: 11/26/17 Subjective:: Patient was seen on morning rounds. Patient reported that she had some chest pain last night which lasted about 5 minutes. She also claimed to had some palpitation. Telemetry strips were reviewed. It showed a nonsustained run of wide-complex tachycardia which was noted to be irregular and is felt to be mostly aberrancy with A. fib. Also heart rate was not very high and is felt to be in the range of 100-1 20 bpm. Patient is quite concerned about recurrent chest pain. Her stress test results were again reviewed. Patient had significant breast attenuation artifact. It was also informed that we could be missing an ischemia. Patient does have history of coronary stent placement. Patient now prefers to be transferred to tertiary care for heart catheterization. Patient had previous procedure performed at [facility] therefore will arrange for transfer there. This regard I called the closing coordinator and talked with Stefania. I gave patient's name and date of as well as room number. I am still waiting to hear from Dr. Rasheed the accepting physician. Nurse instructed to give cardiac connection is called within the next 4-6 hours if you do not hear from them. Transfer papers completed. Dr. Negrete to do a discharge summary.. Reason For Visit: ACUTE ON CHRONIC CHF Physical Exam Vital Signs: Temp Pulse Resp BP Pulse Ox 98.8 F 72 17 107/52 L 100 11/26/17 06:49 11/26/17 07:00 11/26/17 06:49 11/26/17 06:49 11/26/17 06:49 Intake & Output 11/25/17 11/26/17 11/27/17 06:59 06:59 06:59 Intake Total 998 1798 Output Total 600 Balance 398 1798 Exam: GENERAL: well-nourished and in no acute distress. Alert and oriented x3 HEAD: Atraumatic, normocephalic. EYES: Pupils equal round and reactive to light, extraocular movements intact, sclera anicteric, conjunctiva are normal. ENT: TMs normal, nares patent, oropharynx clear without exudates. Moist mucous membranes. No oral ulcerations or bleeding gums noted NECK: supple without lymphadenopathy. Trachea is central. No cervical or axillary lymphadenopathy noted. Carotids are 2+, JVD WNL LUNGS: Respiration seems nonlabored, no significant accessory muscle action noted. Breath sounds clear to auscultation bilaterally and equal noted. No wheezes rales or rhonchi noted. No significant dullness noted on percussion. CHEST: Palpation of the chest wall shows no significant chest wall tenderness. No other significant abnormalities noted. 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 ABDOMEN: Soft, no significant tenderness appreciated, normoactive bowel sounds. No guarding, no rebound. No rigidity noted . No masses appreciated. EXTREMITIES: Pedal pulses are 1-2+, no calf tenderness noted. No clubbing or cyanosis.trace to 1+ pedal edema noted NEUROLOGICAL: Focused neurological exam showed no significant neurologic deficit. Normal speech, no focal weakness appreciated. PSYCH: Normal mood, normal affect. Judgment and insight within normal limits. SKIN: No significant ecchymosis, skin is noted to be warm. MUSCULOSKELETAL EXAM: No significant acute joint swelling noted. Results Laboratory Results: 11/23/17 05:55 11/26/17 08:44 11/26/17 08:44 Sodium 141.3 Potassium 4.4 Chloride 109 H Carbon Dioxide 26 Anion Gap 6 BUN 21 H Creatinine 1.01 Est GFR ( Amer) > 60 Est GFR (Non-Af Amer) 56 L Glucose 125 H Calcium 9.5 Magnesium 2.0 11/23/17 11/23/17 11/23/17 05:55 08:16 08:16 Creatine Kinase 100 CK-MB (CK-2) 0.69 Troponin I < 0.012 NT-Pro-B Natriuret Pep 812 11/23/17 11/23/17 11/23/17 15:40 15:40 21:58 Creatine Kinase 88 85 CK-MB (CK-2) 0.59 Troponin I < 0.012 NT-Pro-B Natriuret Pep 11/23/17 22:10 Creatine Kinase CK-MB (CK-2) 0.55 Troponin I < 0.012 NT-Pro-B Natriuret Pep EKG Comments: Twelve-lead EKG is obtained shows sinus rhythm without any acute ST-T wave changes. Telemetry strips as reported above. Impressions: Chest X-Ray 11/20/17 15:15 IMPRESSION: HEART ENLARGED WITHOUT FAILURE. NO OTHER SIGNIFICANT RADIOGRAPHIC FINDING IN THE CHEST. Chest/Abdomen CTA 11/22/17 00:00 IMPRESSION: No acute consolidations or pleural effusions. NO PULMONARY EMBOLI. Other findings as noted above. Assessment & Plan - Diagnosis (1) Chest pain Qualifiers: Chest pain type: unspecified Qualified Code(s): R07.9 - Chest pain, unspecified Is this a current diagnosis for this admission?: Yes (2) CAD S/P percutaneous coronary angioplasty Is this a current diagnosis for this admission?: Yes (3) Depression Qualifiers: Depression Type: unspecified Qualified Code(s): F32.9 - Major depressive disorder, single episode, unspecified Is this a current diagnosis for this admission?: Yes (4) Diabetes mellitus type 2 in obese Is this a current diagnosis for this admission?: Yes (5) Hyperlipidemia associated with type 2 diabetes mellitus Is this a current diagnosis for this admission?: Yes (6) Hypertension Qualifiers: Hypertension type: essential hypertension Qualified Code(s): I10 - Essential (primary) hypertension Is this a current diagnosis for this admission?: Yes (7) Morbid (severe) obesity with alveolar hypoventilation Is this a current diagnosis for this admission?: Yes (8) Congestive heart failure Qualifiers: Heart failure type: diastolic Heart failure chronicity: unspecified Qualified Code(s): I50.30 - Unspecified diastolic (congestive) heart failure Is this a current diagnosis for this admission?: Yes (9) Generalized anxiety disorder with panic attacks Is this a current diagnosis for this admission?: Yes (10) Gastroesophageal reflux disease Qualifiers: Esophagitis presence: esophagitis presence not specified Qualified Code(s) : K21.9 - Gastro-esophageal reflux disease without esophagitis Is this a current diagnosis for this admission?: Yes (11) Atrial fibrillation Qualifiers: Atrial fibrillation type: paroxysmal Qualified Code(s): I48.0 - Paroxysmal atrial fibrillation Is this a current diagnosis for this admission?: Yes - Notes Notes: Chest pain: Patient keeps on having recurrent chest pain almost on a daily basis. Nuclear stress test overall felt having lot of artifacts. Therefore we could be missing an ischemia. In view of patient having recurrent chest pain and also known history of coronary intervention, patient now prefers to be transferred to tertiary care for heart catheterization. I agree with this. I have called [facility]. They just accepted the patient in transfer. I believe patient will get to bed sometimes over the weekend for possible heart cath on Wednesday. Coronary artery disease: Patient is status post coronary angioplasty. Continue aspirin, Plavix, statins, beta blockers. Also continue angiotensin receptor blockers. Congestive heart failure: Most likely related to diastolic dysfunction. It may be worthwhile to consider repeating the echocardiogram. Continue IV diuretics for now. Paroxysmal atrial fibrillation: Continue chronic Coumadin therapy. Continue rate control with beta-david. May add Cardizem if needed. Day before yesterday's EKG shows sinus rhythm. Also during the stress test patient was noted to be in sinus rhythm. Depression: Patient may benefit from antidepressant. However patient does not want to admit that she is depressed. Diabetes: Recommend good control of blood sugar. However should avoid any hypoglycemia and hyperglycemia. Patient being expertly managed by primary care M.D/hospitalist. Hypertension: Reasonably well controlled. Blood pressure goal in this patient is 135/85 or less. This was discussed with the patient. Currently blood pressure under reasonable control. Better medication for this patient are LILY inhibitor/ARB/beta david etc. discussed side effects of uncontrolled hypertension and also severe hypotension. Obesity: Patient has been encouraged in weight loss. Probable underlying sleep apnea syndrome: Patient will benefit from a sleep evaluation. Patient lab sleep study was more than 5 years ago and is worth repeating. Generalized anxiety disorder: Patient will benefit from SSRI agent and also as needed anxiolytics. Gastroesophageal reflux disease: This is strongly suspected. Empiric proton pump therapy is being recommended. - Time Time with patient: Greater than 35 minutes - CODE STATUS was discussed, patient remains full code. Surrogate decision-maker unchanged. Multiple medical problems were addressed. More than 50% of the time spent coordinating care, discussing management plans with involved caregivers. Management plans discussed with involved personnels. Medical decision making was of moderate to high complexity, patient's has multiple comorbidities. Considerable time spent discussing case with the power supply engineer who accepted the patient. Medications reviewed and adjusted accordingly: Yes
[2017-11-26] MEDS: WARFARIN SODIUM 5 MG TABLET PO SCH (21:31)
[2017-11-26] MEDS: ATORVASTATIN CALCIUM 40 MG TABLET PO SCH (21:32)
[2017-11-26] MEDS: INSULIN GLARGINE,HUM.REC.ANLOG 300 UNIT/3 ML INSULN.PEN SUBCUT SCH (21:35)
--- NOTE | 2017-11-26 22:16 | EKG REPORT ---
SEVERITY:- ABNORMAL ECG - SINUS RHYTHM LEFT AXIS DEVIATION LVH WITH SECONDARY REPOLARIZATION ABNORMALITY : Confirmed by: Ke Shahid 26-Nov-2017 22:16:12
[2017-11-27] MEDS: LANSOPRAZOLE 30 MG TAB.RAP.DR PO SCH (06:54)
[2017-11-27] MEDS: CLONIDINE HCL 0.1 MG TABLET PO SCH ×2 (06:54→14:02)
[2017-11-27] MEDS: METFORMIN HCL 500 MG TABLET PO SCH (08:26)
[2017-11-27] MEDS: INSULIN LISPRO 100 UNIT/ML 3 ML VIAL SUBCUT SCH (08:27)
[2017-11-27] MEDS: ASPIRIN 81 MG TABLET, CHEWABLE PO SCH (09:48)
[2017-11-27] MEDS: HYDRALAZINE HCL 50 MG TABLET PO SCH (09:48)
[2017-11-27] MEDS: RANOLAZINE 500 MG TAB.SR.12H PO SCH (09:48)
[2017-11-27] MEDS: POTASSIUM CHLORIDE 10 MEQ TABLET.SA PO SCH (09:49)
[2017-11-27] MEDS: METOPROLOL SUCCINATE 50 MG TAB.SR.24H PO SCH (09:49)
[2017-11-27] MEDS: FUROSEMIDE 20 MG TABLET PO SCH (09:49)
[2017-11-27] MEDS: VALSARTAN 160 MG TABLET PO SCH (09:49)
[2017-11-27] MEDS: MAGNESIUM OXIDE 400 MG TABLET PO SCH (09:49)
--- NOTE | 2017-11-27 12:45 | PDOC PROGRESS REPORT ---
Subjective Progress Note for:: 11/27/17 Subjective:: She does currently doing well Patient's denied any chest pain denied any shortness of the breath No other events happened Waiting for transfer Reason For Visit: ACUTE ON CHRONIC CHF Physical Exam Vital Signs: Temp Pulse Resp BP Pulse Ox 98.8 F 72 13 115/66 99 11/27/17 08:09 11/27/17 08:09 11/27/17 08:09 11/27/17 08:09 11/27/17 08:09 Intake & Output 11/26/17 11/27/17 11/28/17 06:59 06:59 06:59 Intake Total 1798 672 Balance 1798 672 General appearance: PRESENT: no acute distress, well-developed, well-nourished Head exam: PRESENT: atraumatic, normocephalic Eye exam: PRESENT: conjunctiva pink, EOMI, PERRLA. ABSENT: scleral icterus Ear exam: PRESENT: normal external ear exam Mouth exam: PRESENT: moist, tongue midline Neck exam: PRESENT: full ROM. ABSENT: carotid bruit, JVD, lymphadenopathy, thyromegaly Respiratory exam: PRESENT: clear to auscultation johanna Cardiovascular exam: PRESENT: RRR. ABSENT: diastolic murmur, rubs, systolic murmur Pulses: PRESENT: normal dorsalis pedis pul, +2 pedal pulses bilateral Vascular exam: PRESENT: normal capillary refill GI/Abdominal exam: PRESENT: normal bowel sounds, soft. ABSENT: distended, guarding, mass, organolmegaly, rebound, tenderness Rectal exam: PRESENT: deferred Extremities exam: ABSENT: pedal edema Musculoskeletal exam: PRESENT: ambulatory Neurological exam: PRESENT: alert, awake, oriented to person, oriented to place , oriented to time, oriented to situation, CN II-XII grossly intact. ABSENT: motor sensory deficit Psychiatric exam: PRESENT: appropriate affect, normal mood. ABSENT: homicidal ideation, suicidal ideation Skin exam: PRESENT: dry, intact, warm. ABSENT: cyanosis, rash Results Laboratory Results: 11/23/17 05:55 11/26/17 08:44 11/23/17 11/23/17 11/23/17 05:55 08:16 08:16 Creatine Kinase 100 CK-MB (CK-2) 0.69 Troponin I < 0.012 NT-Pro-B Natriuret Pep 812 11/23/17 11/23/17 11/23/17 15:40 15:40 21:58 Creatine Kinase 88 85 CK-MB (CK-2) 0.59 Troponin I < 0.012 NT-Pro-B Natriuret Pep 11/23/17 22:10 Creatine Kinase CK-MB (CK-2) 0.55 Troponin I < 0.012 NT-Pro-B Natriuret Pep Impressions: Chest X-Ray 11/20/17 15:15 IMPRESSION: HEART ENLARGED WITHOUT FAILURE. NO OTHER SIGNIFICANT RADIOGRAPHIC FINDING IN THE CHEST. Chest/Abdomen CTA 11/22/17 00:00 IMPRESSION: No acute consolidations or pleural effusions. NO PULMONARY EMBOLI. Other findings as noted above. Assessment & Plan - Diagnosis (1) CAD S/P percutaneous coronary angioplasty Is this a current diagnosis for this admission?: Yes (2) CHF, acute on chronic Qualifiers: Heart failure type: unspecified Qualified Code(s): I50.9 - Heart failure, unspecified Is this a current diagnosis for this admission?: Yes (3) Chronic atrial fibrillation Is this a current diagnosis for this admission?: Yes (4) Diabetes mellitus type 2 in obese Is this a current diagnosis for this admission?: Yes (5) Hypertension Qualifiers: Hypertension type: essential hypertension Qualified Code(s): I10 - Essential (primary) hypertension Is this a current diagnosis for this admission?: Yes (6) Morbid (severe) obesity with alveolar hypoventilation Is this a current diagnosis for this admission?: Yes (7) Palpitations Is this a current diagnosis for this admission?: Yes (8) Shortness of breath Is this a current diagnosis for this admission?: Yes - Time Time Spent with patient: 15-24 minutes Medications reviewed and adjusted accordingly: Yes Anticipated discharge: [facility] Within: when bed available, Other - Inpatient Certification Medical Necessity: Need Close Monitoring Due to Risk of Patient Decompensation Post Hospital Care: D/C [employer] Fire[employer] Documentation - Plan Summary Plan Summary: She is currently doing well waiting for transfer
--- NOTE | 2017-11-27 14:12 | PDOC PROGRESS REPORT ---
Subjective Progress Note for:: 11/27/17 Subjective:: Patient was seen on morning rounds. Patient seems to be doing better with gradual improvement. Pt is denying any chest arm or neck discomfort. Patient denying any PND, orthopnea. Patient denied any sustained palpitations, dizziness, syncope, near syncope. Patient denying any fever chills. Patient denying any other significant discomfort. Patient is maintaining sinus rhythm. Review of systems: Rest review of systems negative. Medications: Medications have been reviewed. Reason For Visit: ACUTE ON CHRONIC CHF Physical Exam Vital Signs: Temp Pulse Resp BP Pulse Ox 98.6 F 74 14 140/71 H 99 11/27/17 12:03 11/27/17 12:03 11/27/17 12:03 11/27/17 12:03 11/27/17 12:03 Intake & Output 11/26/17 11/27/17 11/28/17 06:59 06:59 06:59 Intake Total 1798 672 Balance 1798 672 Exam: GENERAL: well-nourished and in no acute distress. Alert and oriented x3 HEAD: Atraumatic, normocephalic. EYES: Pupils equal round and reactive to light, extraocular movements intact, sclera anicteric, conjunctiva are normal. ENT: TMs normal, nares patent, oropharynx clear without exudates. Moist mucous membranes. No oral ulcerations or bleeding gums noted NECK: supple without lymphadenopathy. Trachea is central. No cervical or axillary lymphadenopathy noted. Carotids are 2+, JVD WNL LUNGS: Respiration seems nonlabored, no significant accessory muscle action noted. Breath sounds clear to auscultation bilaterally and equal noted. No wheezes rales or rhonchi noted. No significant dullness noted on percussion. CHEST: Palpation of the chest wall shows no significant chest wall tenderness. No other significant abnormalities noted. HEART: [place], No PSH, 1/6 SYLVAIN aortic area, 1/6 muro systolic murmur mitral area, no rubs, no gallops. ABDOMEN: Soft, no significant tenderness appreciated, normoactive bowel sounds. No guarding, no rebound. No rigidity noted . No masses appreciated. EXTREMITIES: Pedal pulses are 1-2+, no calf tenderness noted. No clubbing or cyanosis.trace to 1+ pedal edema noted NEUROLOGICAL: Focused neurological exam showed no significant neurologic deficit. Normal speech, no focal weakness appreciated. PSYCH: Normal mood, normal affect. Judgment and insight within normal limits. SKIN: No significant ecchymosis, skin is noted to be warm. MUSCULOSKELETAL EXAM: No significant acute joint swelling noted. Results Laboratory Results: 11/23/17 05:55 11/26/17 08:44 11/23/17 11/23/17 11/23/17 05:55 08:16 08:16 Creatine Kinase 100 CK-MB (CK-2) 0.69 Troponin I < 0.012 NT-Pro-B Natriuret Pep 812 11/23/17 11/23/17 11/23/17 15:40 15:40 21:58 Creatine Kinase 88 85 CK-MB (CK-2) 0.59 Troponin I < 0.012 NT-Pro-B Natriuret Pep 11/23/17 22:10 Creatine Kinase CK-MB (CK-2) 0.55 Troponin I < 0.012 NT-Pro-B Natriuret Pep EKG Comments: Telemetry shows sinus rhythm without any sustained tachycardia or bradycardia. Impressions: Chest X-Ray 11/20/17 15:15 IMPRESSION: HEART ENLARGED WITHOUT FAILURE. NO OTHER SIGNIFICANT RADIOGRAPHIC FINDING IN THE CHEST. Chest/Abdomen CTA 11/22/17 00:00 IMPRESSION: No acute consolidations or pleural effusions. NO PULMONARY EMBOLI. Other findings as noted above. Assessment & Plan - Diagnosis (1) Chest pain Qualifiers: Chest pain type: unspecified Qualified Code(s): R07.9 - Chest pain, unspecified Is this a current diagnosis for this admission?: Yes (2) CAD S/P percutaneous coronary angioplasty Is this a current diagnosis for this admission?: Yes (3) Depression Qualifiers: Depression Type: unspecified Qualified Code(s): F32.9 - Major depressive disorder, single episode, unspecified Is this a current diagnosis for this admission?: Yes (4) Diabetes mellitus type 2 in obese Is this a current diagnosis for this admission?: Yes (5) Hyperlipidemia associated with type 2 diabetes mellitus Is this a current diagnosis for this admission?: Yes (6) Hypertension Qualifiers: Hypertension type: essential hypertension Qualified Code(s): I10 - Essential (primary) hypertension Is this a current diagnosis for this admission?: Yes (7) Morbid (severe) obesity with alveolar hypoventilation Is this a current diagnosis for this admission?: Yes (8) Congestive heart failure Qualifiers: Heart failure type: diastolic Heart failure chronicity: unspecified Qualified Code(s): I50.30 - Unspecified diastolic (congestive) heart failure Is this a current diagnosis for this admission?: Yes (9) Generalized anxiety disorder with panic attacks Is this a current diagnosis for this admission?: Yes (10) Gastroesophageal reflux disease Qualifiers: Esophagitis presence: esophagitis presence not specified Qualified Code(s) : K21.9 - Gastro-esophageal reflux disease without esophagitis Is this a current diagnosis for this admission?: Yes (11) Atrial fibrillation Qualifiers: Atrial fibrillation type: paroxysmal Qualified Code(s): I48.0 - Paroxysmal atrial fibrillation Is this a current diagnosis for this admission?: Yes - Notes Notes: Patient with known coronary artery disease has recurrent chest pain. Stress test was relatively unremarkable but felt to be overall equivocal because of significant soft tissue and breast attenuation artifact. Since patient has known CAD and keeps on having chest pain in spite of good medical regimen, patient is being referred for heart catheterization. Patient awaiting for a bed at [facility]. Patient has been encouraged to lose weight. Patient encouraged to schedule a sleep study as patient seems to have significant diastolic dysfunction which could be causing dyspnea on exertion. Patient other medical problems as listed above are relatively stable. Patient to report any further problems. - Time Time with patient: 15-25 minutes - CODE STATUS was discussed, patient remains full code. Surrogate decision-maker unchanged. Multiple medical problems were addressed. More than 50% of the time spent coordinating care, discussing management plans with involved caregivers. Management plans discussed with involved personnels. Medical decision making was of moderate to high complexity , patient's has multiple comorbidities.
[2017-11-27 16:33] VITALS: BP 122/64
[2017-11-27] MEDS ORDERED: INSULIN GLARGINE,HUM.REC.ANLOG 300 UNIT/3 ML INSULN.PEN SUBCUT SCH (22:00)
== END 2017-11-27 16:20 | disposition short-term general hospital (02) | DRG 292 ==
LOC: ER 14:41 → EH 17:26 → 4S 21:15 → OBSVTOIN 11-22 14:00
PROVIDERS: ADMIT Internal Medicine Geriatric Medicine; ATTEND Family Medicine
DX: I11.0 Hypertensive heart disease with heart failure (principal); E66.2 Morbid (severe) obesity with alveolar hypoventilation; Z95.1 Presence of aortocoronary bypass graft; Z79.01 Long term (current) use of anticoagulants; Z68.43 Body mass index [BMI] 50.0-59.9, adult; K59.03 Drug induced constipation; I48.2 Chronic atrial fibrillation; I50.33 Acute on chronic diastolic (congestive) heart failure; I25.10 Atherosclerotic heart disease of native coronary artery without angina pectoris; M19.90 Unspecified osteoarthritis, unspecified site; F32.9 Major depressive disorder, single episode, unspecified; E78.5 Hyperlipidemia, unspecified; F41.1 Generalized anxiety disorder; K21.9 Gastro-esophageal reflux disease without esophagitis; E11.9 Type 2 diabetes mellitus without complications; I25.2 Old myocardial infarction; Z79.82 Long term (current) use of aspirin; Z88.5 Allergy status to narcotic agent; Z88.0 Allergy status to penicillin; Z88.8 Allergy status to other drugs, medicaments and biological substances; Z71.3 Dietary counseling and surveillance; Z85.3 Personal history of malignant neoplasm of breast; Z82.49 Family history of ischemic heart disease and other diseases of the circulatory system
CPT/HCPCS: 36415; 71045; 71275; 78452; 80048; 80053; 80061; 81001; 82550; 82553; 82962; 83036; 83735; 83880; 84100; 84443; 84484; 85025; 85610; 85730; 93005; 93010; 93017; 93306; 96374; 99285; A9500; G0378; J0280; J1815; J1940; J2785; Q9969; S0164

== ENCOUNTER → 2018-01-12 | Outpatient (CLI) | payer MEDICARE, MEDICAID ==
--- NOTE | 2018-01-12 11:40 | RADIOLOGY REPORT (SQ) ---
EXAM DESCRIPTION: KNEE LEFT 4 VIEWS COMPLETED DATE/TIME: 01/12/2018 10:38 am REASON FOR STUDY: PAIN IN LEFT KNEE COMPARISON: 2012. NUMBER OF VIEWS: Four views, 6 images of the left knee. LIMITATIONS: None. FINDINGS: Normal bone density. Osteophytes along the medial and lateral joint lines as well as kitchen llofemoral. There is mild medial compartment joint space narrowing. Slight lucency along medial tib ial osteophytes could reflect minimal fracture through this area. No significant joint effusion. OTHER: No other significant finding. IMPRESSION: 1. DJD. 2. Subtle medial tibial intra-articular fracture is not excluded. This may be artifact, related to the degenerative spurring and overlapping structures, however. TECHNICAL DOCUMENTATION: JOB ID: [id number] Reading location - IP/workstation name: [email or web address]
== END ==
LOC: OD 10:19
PROVIDERS: ATTEND Physician Assistant
DX: M25.562 Pain in left knee (principal); M17.12 Unilateral primary osteoarthritis, left knee

== ENCOUNTER → 2018-01-26 | Outpatient (CLI) | payer MEDICARE, MEDICAID ==
--- NOTE | 2018-01-27 09:24 | RADIOLOGY REPORT (SQ) ---
EXAM DESCRIPTION: U/S THYROID/SFT TISS HD NECK COMPLETED DATE/TIME: 01/26/2018 5:12 pm REASON FOR STUDY: R94.6 ABNORMAL RESULTS OF THYROID FUNCTION STUDIES R94.6 ABNORMAL RESULTS OF THYR OID FUNCTION STUDIES COMPARISON: CT angio chest 11/22/2017, 01/26/2011 TECHNIQUE: Dynamic and static slade-scale images acquired of the thyroid gland. Selected additional c olor/power Doppler images recorded. All images stored to PACS. LIMITATIONS: None. FINDINGS: Prior CT exams were reviewed as well as today's ultrasound. The patient has a multinodular goiter with diffuse thyromegaly on CT. A portion of the right lobe th yroid protrudes into the upper mediastinum. We could not visualize this on ultrasound today. Today's ultrasound demonstrates that the right lobe thyroid is 7 x 5 x 5 cm in size with multiple sub centimeter colloid cysts. Left lobe thyroid measures 6 x 5 x 4 cm in size with multiple small colloid cysts. There is a comple x nodule in the upper pole left lobe thyroid 2 x 1.3 cm in size. IMPRESSION: Multinodular goiter TECHNICAL DOCUMENTATION: JOB ID: [id number] [employer]- All Rights Reserved Reading location - IP/workstation name: [email or web address]
== END ==
LOC: RAD 16:32
PROVIDERS: ATTEND Physician Assistant
DX: R94.6 Abnormal results of thyroid function studies (principal)
CPT/HCPCS: 76536

== ENCOUNTER → 2018-05-10 | Outpatient (CLI) | payer MEDICARE, MEDICAID ==
--- NOTE | 2018-05-10 11:05 | RADIOLOGY REPORT (SQ) ---
EXAM DESCRIPTION: CT ABD/PELVIS NO ORAL OR IV COMPLETED DATE/TIME: 05/10/2018 10:46 am REASON FOR STUDY: ABD MASS (R19.00) R19.00 INTRA-ABD AND PELVIC SWELLING, MASS AND LUMP, UNSP SI COMPARISON: CT chest 11/22/2017 CT abdomen pelvis 03/18/2013 TECHNIQUE: CT scan of the abdomen and pelvis performed without intravenous or oral contrast. Images reviewed with lung, soft tissue, and bone windows. Reconstructed coronal and sagittal MPR images revi ewed. All images stored on PACS. All CT scanners at this facility use dose modulation, iterative reconstruction, and/or weight based d osing when appropriate to reduce radiation dose to as low as reasonably achievable (ALARA). [facility]: Dose Right [facility]: CareDose [facility]: Dose Right [facility]: Teradose 4D [facility]: Smart [employer] RADIATION DOSE: CT Rad equipment meets quality standard of care and radiation dose reduction techniq ues were employed. CTDIvol: 31.5 mGy. DLP: 1634 mGy-cm.mGy. LIMITATIONS: Morbid obesity FINDINGS: LOWER CHEST: Calcified the anterior aortic valve leaflet. Lung bases are clear. NON-CONTRASTED LIVER, SPLEEN, ADRENALS: Evaluation limited by lack of IV contrast. No identified sign ificant masses. PANCREAS: No masses. No peripancreatic inflammatory changes. GALLBLADDER: No identified stones by CT criteria. No inflammatory changes to suggest cholecystitis. RIGHT KIDNEY AND URETER: No suspicious masses. Assessment limited by lack of IV contrast. 3 cm right lower pole renal cortical cyst. No significant calcifications. No hydronephrosis or hydroureter. LEFT KIDNEY AND URETER: No suspicious masses. Assessment limited by lack of IV contrast. 5.5 cm left lower pole, 4 cm left midpole renal cortical cyst. Less than 2 mm stones in the left upper and low er pole kidney, nonobstructive. No ureteral stones. No hydronephrosis or hydroureter. AORTA AND RETROPERITONEUM: No aneurysm. No retroperitoneal masses or adenopathy. BOWEL AND PERITONEAL CAVITY: No obvious masses or inflammatory changes. No free fluid. APPENDIX: Normal. PELVIS, BLADDER, AND ABDOMINAL WALL:No abnormal masses. No free fluid. Bladder normal. BONES: No significant findings. OTHER: No other significant finding. IMPRESSION: Left upper and lower pole intrarenal nonobstructive tiny calculi. No CT findings to explain history of abdominal mass COMMENT: Quality ID # [id number]: Final reports with documentation of one or more dose reduction techniques (e.g., Automated exposure control, adjustment of the mA and/or kV according to patient size, use of iterative reconstruction technique) TECHNICAL DOCUMENTATION: JOB ID: [id number] [employer]- All Rights Reserved Reading location - IP/workstation name: [id number]
== END ==
LOC: RAD 10:20
PROVIDERS: ATTEND Family Medicine
DX: R19.00 Intra-abdominal and pelvic swelling, mass and lump, unspecified site (principal)
CPT/HCPCS: 74176

== ENCOUNTER 2018-06-04 11:47 | Observation (INO) | payer MEDICARE, MEDICAID ==
[2018-06-04] MEDS ORDERED: ASPIRIN 81 MG TABLET, CHEWABLE PO ONE (12:04)
--- NOTE | 2018-06-04 12:19 | ER Document Report ---
ED Cardiac - General Chief Complaint: Chest Pain Stated Complaint: CHEST PAIN Time Seen by Provider: 06/04/18 12:13 TRAVEL OUTSIDE OF THE [place] IN LAST 30 DAYS: No - HPI Notes: Patient is a 63-year-old female that presents to the emergency department for chief complaint of chest pain. Patient started having substernal and left parasternal chest pain this morning at 8 AM. Her pain has been constant since onset. She states she has associated diaphoresis, nausea and shortness of breath. The pain seems to be unchanged with exertion and rest. She denies any aggravating or relieving factors. She has a history of [place] in 2009 with one coronary stent. She is on Coumadin daily and has been compliant with her medication. Patient usually takes baby aspirin daily but has not had any aspirin yet today. She does state that she had a cardiac catheterization in November and did not receive any further stenting at that time. Past Medical History: Hypertension, hyperlipidemia, diabetes, CAD Past Surgical History: Cardiac stent x1, , right hand ganglion cyst removal Social History: Denies drugs alcohol and tobacco Family History: Reviewed and noncontributory for presenting illness Allergies: Reviewed, see documented allergy list. REVIEW OF SYSTEMS: CONSTITUTIONAL : No fever No chills diaphoresis No recent illness EENT: No vision changes No congestion No sore throat CARDIOVASCULAR: chest pain No palpitations RESPIRATORY: shortness of breath No cough No difficulty breathing GASTROINTESTINAL: No abdominal pain nausea No vomiting No diarrhea GENITOURINARY: No dysuria No hematuria No difficulty urinating MUSCULOSKELETAL: No back pain No leg pain No arm pain SKIN: No rashes No lesions LYMPHATIC: No swollen, enlarged glands. NEUROLOGICAL: No lightheadedness No headache No weakness No paresthesias PSYCHIATRIC: No anxiety No depression PHYSICAL EXAMINATION: Vital signs reviewed, nursing noted reviewed. GENERAL: Well-appearing, well-nourished and in no acute distress. Obese HEAD: Atraumatic, normocephalic. EYES: Eyes appear normal, extraocular movements intact, sclera anicteric, conjunctiva are normal. ENT: nares patent, oropharynx clear without exudates. Moist mucous membranes. NECK: Normal range of motion, supple without lymphadenopathy LUNGS: Breath sounds clear to auscultation bilaterally and equal. No wheezes rales or rhonchi. HEART: Regular rate and rhythm without murmurs ABDOMEN: Soft, nontender, normoactive bowel sounds. No rebound, guarding, or rigidity. No masses appreciated. EXTREMITIES: Nontender, good range of motion, no pitting or edema. NEUROLOGICAL: No focal neurological deficits. Moves all extremities spontaneously Motor and sensory grossly intact on exam. PSYCH: Normal mood, normal affect. SKIN: Warm, Dry, normal turgor, no rashes or lesions noted on exposed skin - Related Data Allergies/Adverse Reactions: naproxen [From Naprosyn] Allergy (Severe, Verified 06/04/18 11:48) FEELS "ON FIRE" Penicillins Allergy (Intermediate, Verified 06/04/18 11:48) broke out in white blisters niacin [Niacin] Allergy (Mild, Verified 06/04/18 11:48) "on fire" oxycodone HCl [From Percocet] Allergy (Mild, Verified 06/04/18 11:48) itchy propoxyphene napsylate [From Darvocet-N 100] Allergy (Mild, Verified 06/04/18 11 :48) itchy Past Medical History - Social History Smoking Status: Never Smoker Family History: CAD, Other - No FH of DVT/PE - Past Medical History Cardiac Medical History: Reports: Hx Atrial Fibrillation, Hx Congestive Heart Failure, Hx Coronary Artery Disease, Hx Heart Attack - 2010, Hx Hypercholesterolemia, Hx Hypertension Pulmonary Medical History: Denies: Hx Asthma, Hx Bronchitis, Hx COPD, Hx Pneumonia Neurological Medical History: Denies: Hx Cerebrovascular Accident, Hx Seizures Endocrine Medical History: Reports: Hx Diabetes Mellitus Type 2 Renal/ Medical History: Denies: Hx Peritoneal Dialysis Malignancy Medical History: Reports: Hx Breast Cancer GI Medical History: Reports: Hx Gastroesophageal Reflux Disease Musculoskeletal Medical History: Reports Hx Arthritis - degenerative Psychiatric Medical History: Reports: Hx Depression Past Surgical History: Reports: Hx Breast Surgery - right lumpectomy, Hx Cardiac Catheterization - stent, Hx Section - x 2, Hx Orthopedic Surgery - GANGLION CYST. Denies: Hx Pacemaker - Immunizations Hx Diphtheria, Pertussis, Tetanus Vaccination: No Hx Pneumococcal Vaccination: 07/07/12 Review of Systems - Review of Systems Notes: Dictated Physical Exam - Vital signs Vitals: Temp Pulse Resp BP Pulse Ox 98.9 F 70 16 215/83 H 98 06/04/18 11:51 06/04/18 11:51 06/04/18 11:51 06/04/18 11:51 06/04/18 11:51 - Notes Notes: Dictated Course - Re-evaluation Re-evalutation: 06/04/18 12:18 Vitals reviewed. Nursing notes reviewed. EKG today shows T wave changes compared to prior study which was before her last cardiac catheterization. Patient was given aspirin and nitro for her chest pain. She was placed on cardiac monitoring. 06/04/18 13:28 On reevaluation patient states her chest pain has resolved. She has had no telemetry events. Lab work is unremarkable. Troponin is negative. Because of her history of CAD she will be admitted to the hospital for further cardiac monitoring. Case discussed with admitting physician Dr. Campos. Patient in agreement with the plan. Laboratory 06/04/18 06/04/18 06/04/18 12:23 12:23 12:23 WBC 5.5 RBC 4.70 Hgb 12.1 Hct 37.5 MCV 80 MCH 25.8 L MCHC 32.4 RDW 15.5 H Plt Count 200 Seg Neutrophils % 58.9 Lymphocytes % 27.9 Monocytes % 9.4 Eosinophils % 2.9 Basophils % 0.9 Absolute Neutrophils 3.3 Absolute Lymphocytes 1.5 Absolute Monocytes 0.5 Absolute Eosinophils 0.2 Absolute Basophils 0.0 Sodium 141.1 Potassium 5.0 Chloride 107 Carbon Dioxide 26 Anion Gap 8 BUN 14 Creatinine 0.77 Est GFR ( Amer) > 60 Est GFR (Non-Af Amer) > 60 Glucose 137 H Calcium 9.6 Total Bilirubin 0.7 Direct Bilirubin 0.3 Neonat Total Bilirubin Not Reportable Neonat Direct Bilirubin Not Reportable Neonat Indirect Bili Not Reportable AST 27 ALT 27 Alkaline Phosphatase 63 Troponin I < 0.012 Total Protein 6.8 Albumin 3.9 Chest X-Ray 06/04/18 12:04 IMPRESSION: NO ACUTE FINDINGS. - Vital Signs Vital signs: Temp Pulse Resp BP Pulse Ox 98.9 F 70 17 179/94 H 100 06/04/18 11:51 06/04/18 11:51 06/04/18 12:30 06/04/18 12:30 06/04/18 12:30 - Laboratory Result Diagrams: 06/04/18 12:23 06/04/18 12:23 Laboratory results interpreted by me: 06/04/18 06/04/18 12:23 12:23 MCH 25.8 L RDW 15.5 H Glucose 137 H - EKG Interpretation by Me Additional EKG results interpreted by me: 06/04/18 12:18 1156: Normal sinus rhythm, rate 67, no ectopy, normal axis, T wave inversion V5 V6, no ST elevation. T wave changes new compared to 11/26/17 Discharge - Discharge Clinical Impression: Abnormal EKG Chest pain Qualifiers: Chest pain type: other chest pain Qualified Code(s): R07.89 - Other chest pain Condition: Stable Disposition: ADMITTED OBSERVATION Admitting Provider: Hospitalist Unit Admitted: Telemetry Referrals: BUTCH DIAZ MD [Primary Care Provider] - Follow up as needed
[2018-06-04] MEDS: NITROGLYCERIN 0.4 MG/TAB 25 TAB/BOTTLE SL PRN ×4 (12:31→15:49)
[2018-06-04 12:35] LABS: ABSOLUTE EOSINOPHILS # (AUTO) 0.2 10^3/uL (0.0-0.6); ABSOLUTE LYMPHOCYTES (AUTO) 1.5 10^3/uL (0.5-4.7); ABSOLUTE MONOCYTES (AUTO) 0.5 10^3/uL (0.1-1.4); ABSOLUTE NEUT (AUTO) 3.3 10^3/uL (1.7-8.2); BASOPHILS % (AUTO) 0.9 % (0-2); EOSINOPHILS % (AUTO) 2.9 % (0-6); HEMATOCRIT 37.5 % (36.0-47.0); HEMOGLOBIN 12.1 g/dL (12.0-15.5); LYMPHOCYTES % (AUTO) 27.9 % (13-45); MEAN CORPUSCULAR HEMOGLOBIN 25.8 pg (27.0-33.4); MEAN CORPUSCULAR HGB CONC 32.4 g/dL (32.0-36.0); MEAN CORPUSCULAR VOLUME 80 fl (80-97); MONOCYTES % (AUTO) 9.4 % (3-13); PLATELET COUNT 200 10^3/uL (150-450); RED CELL DISTRIBUTION WIDTH 15.5 % (11.5-14.0); SEGMENTED NEUTROPHILS % (AUTO) 58.9 % (42-78); TOTAL CELLS COUNTED % (AUTO) 100 %; WHITE BLOOD COUNT 5.5 10^3/uL (4.0-10.5)
[2018-06-04] MEDS ORDERED: ACETAMINOPHEN 325 MG TABLET PO ONE (12:47)
[2018-06-04 12:57] LABS: ALANINE AMINOTRANSFERASE 27 U/L (9-52); ALBUMIN 3.9 g/dL (3.5-5.0); ALKALINE PHOSPHATASE 63 U/L (38-126); ANION GAP 8 (5-19); ASPARTATE AMINO TRANSFERASE 27 U/L (14-36); BILIRUBIN,DIRECT 0.3 mg/dL (0.0-0.4); BILIRUBIN,TOTAL 0.7 mg/dL (0.2-1.3); BLOOD UREA NITROGEN 14 mg/dL (7-20); CALCIUM 9.6 mg/dL (8.4-10.2); CARBON DIOXIDE 26 mmol/L (22-30); CHLORIDE 107 mmol/L (98-107); GLUCOSE 137 mg/dL (75-110); SODIUM 141.1 mmol/L (137-145); TOTAL PROTEIN 6.8 g/dL (6.3-8.2)
--- NOTE | 2018-06-04 13:22 | RADIOLOGY REPORT (SQ) ---
EXAM DESCRIPTION: CHEST SINGLE VIEW COMPLETED DATE/TIME: 06/04/2018 12:36 pm REASON FOR STUDY: cp COMPARISON: 11/20/2017 TECHNIQUE: Single frontal radiographic view of the chest acquired. NUMBER OF VIEWS: One view. LIMITATIONS: None. FINDINGS: LUNGS AND PLEURA: No pneumothorax. No consolidation or pleural effusion. MEDIASTINUM AND HILAR STRUCTURES: Stable. HEART AND VASCULAR STRUCTURES: Stable. BONES: No acute findings. HARDWARE: None in the chest. OTHER: No other significant finding. IMPRESSION: NO ACUTE FINDINGS. TECHNICAL DOCUMENTATION: JOB ID: [id number] [employer]- All Rights Reserved Reading location - IP/workstation name: [email or web address]
[2018-06-04 13:47] LABS: INTERNATIONAL RATION (INR) 2.46; PROTHROMBIN TIME 27.8 SEC (11.4-15.4)
[2018-06-04 16:43] LABS: CREATINE KINASE MB 0.43 ng/mL (<4.55)
[2018-06-04 16:44] LABS: TROPONIN I < 0.012 ng/mL
[2018-06-04] MEDS ORDERED: GLUCAGON,HUMAN RECOMB 1 MG INJ IM PRN (18:13)
[2018-06-04] MEDS ORDERED: INSULIN LISPRO 100 UNIT/ML 3 ML VIAL SUBCUT PRN (18:13)
[2018-06-04] MEDS ORDERED: DEXTROSE 40% GEL 15 GM TUBE PO PRN ×2 (18:13)
[2018-06-04] MEDS ORDERED: DEXTROSE 50%-WATER 25 GM/50 ML DISP.SYRIN IV PRN ×2 (18:13)
[2018-06-04] MEDS ORDERED: LANSOPRAZOLE 30 MG TAB.RAP.DR PO ONE (18:16)
--- NOTE | 2018-06-04 18:40 | PDOC H&P ---
History of Present Illness Admission Date/PCP: 06/04/18 13:36 KATHRYN DIAZ MD Patient complains of: Chest pain History of Present Illness: YURY MCCULLOUGH is a 63 year old female of Dr Kathryn Diaz who presented to the ED with new onset sternal chest pain that started few few hours prior to her presentation. She described pain as achy and tightness in her chest with radiation to her let shoulder. Patient reported that her pain have been constant since onset and upon arrival in the ED. She described some relief after administration of sublingual NTG. she denied any associated diaphoresis, shortness of breath, palpitation, nausea, vomiting, or abdominal pain. She has history of GERD and currently on Omeprazole therapy which she has not used so far today. he denied use of OTC NSAID but currently on Aspirin and Celebrex therapy. She denied cigarette smoking or alcohol abuse but admitted to fried food consumption. Her morbidities include Hypertension, CAD s/p stent angioplasty, Hyperlipidemia, DM type 2, and GERD. Her last cardiac catheterization was in November 2017 at [facility]. She was advised hospitalization for further evaluation and management. Past Medical History Cardiac Medical History: Reports: Atrial Fibrillation, Congestive Heart Failure , Coronary Artery Disease, Myocardial Infarction - 2010, Hyperlipidema, Hypertension Pulmonary Medical History: Denies: Asthma, Bronchitis, Chronic Obstructive Pulmonary Disease (COPD), Pneumonia Neurological Medical History: Denies: Seizures Endocrine Medical History: Reports: Diabetes Mellitus Type 2 Malignancy Medical History: Reports: Breast Cancer GI Medical History: Reports: Gastroesophageal Reflux Disease Musculoskeltal Medical History: Reports: Arthritis - degenerative Psychiatric Medical History: Reports: Depression Hematology: Denies: Anemia Past Surgical History Past Surgical History: Reports: Cardiac Catheterization - stent, Section - x 2, Orthopedic Surgery - GANGLION CYST Denies: Pacemaker Social History Smoking Status: Former Smoker Cigarettes Packs Per Day: 0.2 Cigars Per Day: 0 Pipes Per Day: 0 Number of Years Smokin.5 Last Time Smoked: 09/06/1999 Frequency of Alcohol Use: Rare Hx Recreational Drug Use: No Drugs: None Hx Prescription Drug Abuse: No Family History Family History: CAD, Other - No FH of DVT/PE Parental Family History Reviewed: Yes Children Family History Reviewed: Yes Sibling(s) Family History Reviewed.: Yes Medication/Allergy Home Medications: Acetaminophen [Tylenol Arthritis] 1,300 mg PO Q8HP PRN 06/04/18 Aspirin [Aspirin 325 mg Tablet] 325 mg PO DAILY 06/04/18 Atorvastatin Calcium [Lipitor 40 mg Tablet] 40 mg PO QPM 06/04/18 Celecoxib [Celebrex 100 mg Capsule] 100 mg PO BID 06/04/18 Diltiazem HCl [Cardizem Cd] 360 mg PO DAILY 06/04/18 Dulaglutide [Trulicity] 1.5 mg SQ FR 06/04/18 Furosemide [Lasix 20 mg Tablet] 20 mg PO BID 06/04/18 Hydralazine HCl [Apresoline 50 mg Tablet] 50 mg PO TID 06/04/18 Insulin Aspart [Novolog Flexpen] 0 units SQ .PERSLIDINGSCALE 06/04/18 Insulin Aspart [Novolog Flexpen] 12 units SQ TID 06/04/18 Insulin Glargine,Hum.rec.anlog [Lantus Solostar] 40 units SQ QHS 06/04/18 Lidocaine [Lidoderm 5% (700 mg) Transdermal Patch] 1 patch TD DAILY 06/04/18 Magnesium Oxide [Mag-Ox 400 mg Tablet] 400 mg PO DAILY 06/04/18 Metformin HCl [Glucophage] 1,000 mg PO BID 06/04/18 Metoprolol Tartrate [Lopressor 100 mg Tablet] 100 mg PO BID 06/04/18 Omeprazole 20 mg PO DAILY 06/04/18 Warfarin Sodium [Coumadin] 10 mg PO DAILY 06/04/18 Allergies/Adverse Reactions: naproxen [From Naprosyn] Allergy (Severe, Verified 06/04/18 11:48) FEELS "ON FIRE" Penicillins Allergy (Intermediate, Verified 06/04/18 11:48) broke out in white blisters niacin [Niacin] Allergy (Mild, Verified 06/04/18 11:48) "on fire" oxycodone HCl [From Percocet] Allergy (Mild, Verified 06/04/18 11:48) itchy propoxyphene napsylate [From Darvocet-N 100] Allergy (Mild, Verified 06/04/18 11 :48) itchy Review of Systems Constitutional: ABSENT: chills, fever(s), headache(s), weight gain, weight loss Eyes: ABSENT: visual disturbances Ears: ABSENT: hearing changes Nose, Mouth, and Throat: ABSENT: as per HPI, headache(s), mouth pain, sore throat, vertigo, other Cardiovascular: PRESENT: chest pain. ABSENT: as per HPI, dyspnea on exertion, edema, orthropnea, palpitations, other Respiratory: ABSENT: cough, hemoptysis Gastrointestinal: ABSENT: abdominal pain, constipation, diarrhea, hematemesis, hematochezia, nausea, vomiting Genitourinary: ABSENT: dysuria, hematuria Musculoskeletal: ABSENT: joint swelling Integumentary: ABSENT: rash, wounds Neurological: ABSENT: abnormal gait, abnormal speech, confusion, dizziness, focal weakness, syncope Psychiatric: ABSENT: anxiety, depression, homidical ideation, suicidal ideation Endocrine: ABSENT: cold intolerance, heat intolerance, polydipsia, polyuria Hematologic/Lymphatic: ABSENT: easy bleeding, easy bruising, lymphadenopathy Allergic/Immunologic: ABSENT: as per HPI, seasonal rhinorrhea, other Physical Exam Vital Signs: Temp Pulse Resp BP Pulse Ox 99.0 F 70 16 174/84 H 98 06/04/18 15:37 06/04/18 16:10 06/04/18 16:10 06/04/18 16:10 06/04/18 16:10 Intake & Output 06/03/18 06/04/18 06/05/18 06:59 06:59 06:59 Weight 145.7 kg General appearance: PRESENT: no acute distress, morbidly obese Head exam: PRESENT: atraumatic, normocephalic Eye exam: PRESENT: conjunctiva pink, EOMI, PERRLA. ABSENT: scleral icterus Ear exam: PRESENT: normal external ear exam Mouth exam: PRESENT: moist Neck exam: PRESENT: full ROM. ABSENT: carotid bruit, JVD, lymphadenopathy, thyromegaly Respiratory exam: PRESENT: clear to auscultation johanna Cardiovascular exam: PRESENT: RRR. ABSENT: diastolic murmur, rubs, systolic murmur Pulses: PRESENT: +1 pedal pulses bilateral Vascular exam: PRESENT: normal capillary refill. ABSENT: pallor GI/Abdominal exam: PRESENT: normal bowel sounds, soft. ABSENT: distended, guarding, mass, organolmegaly, rebound, tenderness Rectal exam: PRESENT: deferred Extremities exam: PRESENT: pedal edema - chronic bilateral lower extremities edema Musculoskeletal exam: ABSENT: ambulatory, deformity, dislocation, full ROM, normal inspection, tenderness, other Neurological exam: PRESENT: alert, awake, oriented to person, oriented to place , oriented to time, oriented to situation, CN II-XII grossly intact. ABSENT: motor sensory deficit Psychiatric exam: PRESENT: appropriate affect, normal mood. ABSENT: homicidal ideation, suicidal ideation Skin exam: PRESENT: dry, intact, warm. ABSENT: cyanosis, rash Results Laboratory Results: 06/04/18 06/04/18 16:07 16:07 Creatine Kinase 46 CK-MB (CK-2) 0.43 Troponin I < 0.012 Impressions: Chest X-Ray 06/04/18 12:04 IMPRESSION: NO ACUTE FINDINGS. Assessment & Plan - Diagnosis (1) Chest pain with high risk of acute coronary syndrome Is this a current diagnosis for this admission?: Yes Plan: See attending physician orders. (2) CAD S/P percutaneous coronary angioplasty Is this a current diagnosis for this admission?: Yes Plan: See attending physician orders. (3) Gastroesophageal reflux disease Qualifiers: Esophagitis presence: esophagitis presence not specified Qualified Code(s) : K21.9 - Gastro-esophageal reflux disease without esophagitis Is this a current diagnosis for this admission?: Yes Plan: See attending physician orders. (4) Chronic atrial fibrillation Is this a current diagnosis for this admission?: Yes Plan: See attending physician orders. (5) Hypertension Qualifiers: Hypertension type: essential hypertension Qualified Code(s): I10 - Essential (primary) hypertension Is this a current diagnosis for this admission?: Yes Plan: See attending physician orders. (7) Hyperlipidemia associated with type 2 diabetes mellitus Is this a current diagnosis for this admission?: Yes Plan: See attending physician orders. 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
[2018-06-04] MEDS ORDERED: METFORMIN HCL 500 MG TABLET PO ONE (19:00)
--- NOTE | 2018-06-04 20:23 | EKG REPORT ---
SEVERITY:- ABNORMAL ECG - SINUS ARRHYTHMIA, RATE 57-80 PROBABLE LVH WITH SECONDARY REPOL ABNRM : Confirmed by: Megan Owens MD 04-Jun-2018 20:23:12
--- NOTE | 2018-06-04 20:23 | EKG REPORT ---
SEVERITY:- ABNORMAL ECG - SINUS RHYTHM PROBABLE LVH WITH SECONDARY REPOL ABNRM : Confirmed by: Megan Owens MD 04-Jun-2018 20:23:09
[2018-06-04] MEDS ORDERED: INSULIN GLARGINE,HUM.REC.ANLOG 1,000 UNIT/10 ML UNIT SUBCUT ONE (21:29)
[2018-06-04] MEDS: WARFARIN SODIUM 5 MG TABLET PO SCH (21:36)
[2018-06-04] MEDS: ACETAMINOPHEN 325 MG TABLET PO PRN (21:36)
[2018-06-04] MEDS: INSULIN GLARGINE,HUM.REC.ANLOG 300 UNIT/3 ML INSULN.PEN SUBCUT SCH (21:43)
[2018-06-05] MEDS: LANSOPRAZOLE 30 MG TAB.RAP.DR PO SCH (05:33)
[2018-06-05] MEDS ORDERED: HYDRALAZINE HCL 50 MG TABLET PO ONE (06:15)
[2018-06-05] MEDS ORDERED: METOPROLOL TARTRATE 100 MG TABLET PO ONE (06:15)
[2018-06-05] MEDS ORDERED: DILTIAZEM HCL 180 MG CAPSULE.CR PO ONE (07:00)
[2018-06-05 07:52] LABS: ABSOLUTE EOSINOPHILS # (AUTO) 0.1 10^3/uL (0.0-0.6); ABSOLUTE LYMPHOCYTES (AUTO) 1.6 10^3/uL (0.5-4.7); ABSOLUTE MONOCYTES (AUTO) 0.6 10^3/uL (0.1-1.4); ABSOLUTE NEUT (AUTO) 3.7 10^3/uL (1.7-8.2); BASOPHILS % (AUTO) 0.7 % (0-2); EOSINOPHILS % (AUTO) 2.3 % (0-6); HEMATOCRIT 36.9 % (36.0-47.0); LYMPHOCYTES % (AUTO) 25.9 % (13-45); MEAN CORPUSCULAR HGB CONC 32.6 g/dL (32.0-36.0); MEAN CORPUSCULAR VOLUME 80 fl (80-97); MONOCYTES % (AUTO) 9.5 % (3-13); PLATELET COUNT 201 10^3/uL (150-450); RED BLOOD COUNT 4.62 10^6/uL (3.72-5.28); SEGMENTED NEUTROPHILS % (AUTO) 61.6 % (42-78); TOTAL CELLS COUNTED % (AUTO) 100 %
[2018-06-05 08:13] LABS: ALANINE AMINOTRANSFERASE 27 U/L (9-52); ALBUMIN 3.7 g/dL (3.5-5.0); ALKALINE PHOSPHATASE 71 U/L (38-126); ANION GAP 7 (5-19); ASPARTATE AMINO TRANSFERASE 20 U/L (14-36); BILIRUBIN,DIRECT 0.4 mg/dL (0.0-0.4); BILIRUBIN,TOTAL 0.6 mg/dL (0.2-1.3); BLOOD UREA NITROGEN 13 mg/dL (7-20); CALCIUM 9.7 mg/dL (8.4-10.2); CARBON DIOXIDE 28 mmol/L (22-30); CHLORIDE 106 mmol/L (98-107); CHOLESTEROL 140.14 mg/dL (0-200); CREATINE KINASE 66 U/L (30-135); GLUCOSE 142 mg/dL (75-110); POTASSIUM 4.1 mmol/L (3.6-5.0); SODIUM 140.9 mmol/L (137-145); TOTAL PROTEIN 6.6 g/dL (6.3-8.2); TRIGLYCERIDES 109 mg/dL (<150)
[2018-06-05 08:25] LABS: DIRECT LDL 82 mg/dL (<100)
[2018-06-05 08:26] LABS: CREATINE KINASE MB 0.6 ng/mL (<4.55); TROPONIN I 0.014 ng/mL
[2018-06-05] MEDS: INSULIN LISPRO 100 UNIT/ML 3 ML VIAL SUBCUT SCH ×3 (09:47→17:35)
[2018-06-05] MEDS: METFORMIN HCL 500 MG TABLET PO SCH ×2 (09:47→17:34)
[2018-06-05] MEDS: FUROSEMIDE 20 MG TABLET PO SCH ×2 (09:47→17:34)
[2018-06-05] MEDS: ASPIRIN 325 MG TABLET PO SCH (09:47)
[2018-06-05] MEDS: MAGNESIUM OXIDE 400 MG TABLET PO SCH (09:47)
[2018-06-05] MEDS: LIDOCAINE 5% (700 MG) TRANSDERMAL ADH..PATCH TOP SCH (09:58)
[2018-06-05] MEDS: ACETAMINOPHEN 325 MG TABLET PO PRN (09:58)
[2018-06-05] MEDS ORDERED: DILTIAZEM HCL 180 MG CAPSULE.CR PO SCH (10:00)
[2018-06-05] MEDS ORDERED: HYDRALAZINE HCL 50 MG TABLET PO SCH (10:00)
[2018-06-05] MEDS ORDERED: METOPROLOL TARTRATE 100 MG TABLET PO SCH (10:00)
[2018-06-05] MEDS ORDERED: MAG HYDROX/AL HYDROX/SIMETH SUSP 30 ML UDCUP PO PRN (11:32)
--- NOTE | 2018-06-05 11:32 | PDOC PROGRESS REPORT ---
Subjective Progress Note for:: 06/05/18 Subjective:: Patient reported some upset stomach. No significant nausea or vomiting. No chest pain or difficulty with breathing. Her blood pressure was significantly elevated earlier this morning due to no anti HTN medication administration in last 24 hours. She reported been on Clonidine 0.3mg po tid at home which was not listed on her home medication schedule. Reason For Visit: CHEST PAIN,ABNORMAL ELECTROCARDIOGRAPHY Physical Exam Vital Signs: Temp Pulse Resp BP Pulse Ox 99.4 F 77 22 H 172/74 H 97 06/05/18 08:27 06/05/18 08:27 06/05/18 08:27 06/05/18 08:27 06/05/18 08:27 Intake & Output 06/04/18 06/05/18 06/06/18 06:59 06:59 06:59 Intake Total 911 Balance 911 Weight 146.1 kg General appearance: PRESENT: no acute distress, morbidly obese Head exam: PRESENT: atraumatic, normocephalic Eye exam: PRESENT: conjunctiva pink, EOMI, PERRLA. ABSENT: scleral icterus Ear exam: PRESENT: normal external ear exam Mouth exam: PRESENT: moist Respiratory exam: PRESENT: clear to auscultation johanna Cardiovascular exam: PRESENT: RRR. ABSENT: diastolic murmur, rubs, systolic murmur Vascular exam: PRESENT: normal capillary refill. ABSENT: pallor GI/Abdominal exam: PRESENT: normal bowel sounds, soft. ABSENT: distended, guarding, mass, organolmegaly, rebound, tenderness Extremities exam: PRESENT: pedal edema - minimal chrponic edema to mid leg level Musculoskeletal exam: PRESENT: deformity - related to multiple joints invoilvement with arthritis Neurological exam: PRESENT: alert, awake, oriented to person, oriented to place , oriented to time, oriented to situation, CN II-XII grossly intact. ABSENT: motor sensory deficit Psychiatric exam: PRESENT: appropriate affect, normal mood. ABSENT: homicidal ideation, suicidal ideation Skin exam: PRESENT: dry, intact, warm. ABSENT: cyanosis, rash Results Laboratory Results: 06/05/18 06:35 06/05/18 06:35 06/05/18 06/05/18 06:35 06:35 WBC 6.0 RBC 4.62 Hgb 12.0 Hct 36.9 MCV 80 MCH 26.0 L MCHC 32.6 RDW 15.0 H Plt Count 201 Seg Neutrophils % 61.6 Lymphocytes % 25.9 Monocytes % 9.5 Eosinophils % 2.3 Basophils % 0.7 Absolute Neutrophils 3.7 Absolute Lymphocytes 1.6 Absolute Monocytes 0.6 Absolute Eosinophils 0.1 Absolute Basophils 0.0 Sodium 140.9 Potassium 4.1 Chloride 106 Carbon Dioxide 28 Anion Gap 7 BUN 13 Creatinine 0.82 Est GFR ( Amer) > 60 Est GFR (Non-Af Amer) > 60 Glucose 142 H Calcium 9.7 Total Bilirubin 0.6 AST 20 ALT 27 Alkaline Phosphatase 71 Total Protein 6.6 Albumin 3.7 Triglycerides 109 Cholesterol 140.14 LDL Cholesterol Direct 82 VLDL Cholesterol 22.0 HDL Cholesterol 39 L 06/04/18 06/04/18 06/05/18 16:07 16:07 06:35 Creatine Kinase 46 66 CK-MB (CK-2) 0.43 Troponin I < 0.012 06/05/18 06:35 Creatine Kinase CK-MB (CK-2) 0.60 Troponin I 0.014 Impressions: Chest X-Ray 06/04/18 12:04 IMPRESSION: NO ACUTE FINDINGS. Assessment & Plan - Diagnosis (1) Chest pain with high risk of acute coronary syndrome Is this a current diagnosis for this admission?: Yes (2) CAD S/P percutaneous coronary angioplasty Is this a current diagnosis for this admission?: Yes (3) Gastroesophageal reflux disease Qualifiers: Esophagitis presence: esophagitis presence not specified Qualified Code(s) : K21.9 - Gastro-esophageal reflux disease without esophagitis Is this a current diagnosis for this admission?: Yes (4) Chronic atrial fibrillation Is this a current diagnosis for this admission?: Yes (5) Hypertension Qualifiers: Hypertension type: essential hypertension Qualified Code(s): I10 - Essential (primary) hypertension Is this a current diagnosis for this admission?: Yes (7) Hyperlipidemia associated with type 2 diabetes mellitus Is this a current diagnosis for this admission?: Yes - Time Time Spent with patient: 25-34 minutes Medications reviewed and adjusted accordingly: Yes Anticipated discharge: Home with Homehealth Within: within 24 hours - Inpatient Certification Based on my medical assessment, after consideration of the patient's comorbidities, presenting symptoms, or acuity I expect that the services needed warrant INPATIENT care.: No I certify that my determination is in accordance with my understanding of Medicare's requirements for reasonable and necessary INPATIENT services [42 CFR 412.3e].: No Medical Necessity: Need Close Monitoring Due to Risk of Patient Decompensation, Need For Continuous Telemetry Monitoring, Risk of Complication if Not Cared For in Hospital Post Hospital Care: D/C Filter Machine Operator Documentation - Plan Summary Plan Summary: Patient requested delay of her discharge today due to elevated blood pressure and continued abdominal discomfort. We will ensure adequate blood pressure management and administer Maalox for her upset stomach./ She will continue on all other current medication management
[2018-06-05 12:41] LABS: INTERNATIONAL RATION (INR) 2.25; PROTHROMBIN TIME 25.9 SEC (11.4-15.4)
[2018-06-05] MEDS: HYDRALAZINE HCL 50 MG TABLET PO SCH ×2 (13:57→17:34)
[2018-06-05] MEDS: CLONIDINE HCL 0.2 MG TABLET PO SCH ×2 (13:57→21:18)
[2018-06-05] MEDS ORDERED: ACETAMINOPHEN 325 MG TABLET ONE (14:12)
[2018-06-05] MEDS ORDERED: ACETAMINOPHEN 325 MG TABLET PO PRN (15:00)
[2018-06-05] MEDS ORDERED: NON-FORMULARY UNIT-DOSE MEDICATION PO SCH (18:00)
[2018-06-05] MEDS ORDERED: ATORVASTATIN CALCIUM 40 MG TABLET PO SCH (18:00)
[2018-06-05] MEDS: METOPROLOL TARTRATE 100 MG TABLET PO SCH (21:20)
[2018-06-05] MEDS: WARFARIN SODIUM 5 MG TABLET PO SCH (21:20)
[2018-06-05] MEDS: INSULIN GLARGINE,HUM.REC.ANLOG 300 UNIT/3 ML INSULN.PEN SUBCUT SCH (21:21)
[2018-06-06] MEDS: LANSOPRAZOLE 30 MG TAB.RAP.DR PO SCH (05:11)
[2018-06-06] MEDS: CLONIDINE HCL 0.2 MG TABLET PO SCH (05:11)
[2018-06-06 06:09] LABS: INTERNATIONAL RATION (INR) 2.36; PROTHROMBIN TIME 26.9 SEC (11.4-15.4)
[2018-06-06] MEDS: ASPIRIN 325 MG TABLET PO SCH (09:19)
[2018-06-06] MEDS: MAGNESIUM OXIDE 400 MG TABLET PO SCH (09:19)
[2018-06-06] MEDS: METFORMIN HCL 500 MG TABLET PO SCH (09:19)
[2018-06-06] MEDS: METOPROLOL TARTRATE 100 MG TABLET PO SCH (09:19)
[2018-06-06] MEDS: FUROSEMIDE 20 MG TABLET PO SCH (09:20)
[2018-06-06] MEDS: LIDOCAINE 5% (700 MG) TRANSDERMAL ADH..PATCH TOP SCH ×2 (09:20→09:26)
[2018-06-06] MEDS: INSULIN LISPRO 100 UNIT/ML 3 ML VIAL SUBCUT SCH (09:20)
[2018-06-06 09:50] VITALS: BP 156/73
[2018-06-06] MEDS ORDERED: DILTIAZEM HCL 180 MG CAPSULE.CR PO SCH (10:00)
--- NOTE | 2018-06-06 13:27 | PDOC DISCHARGE SUMMARY ---
General - Admit/Disc Date/PCP Admission Date/Primary Care Provider: 06/04/18 13:36 BUTCH DIAZ MD Discharge Date: 06/06/18 - Discharge Diagnosis (1) Chest pain Is this a current diagnosis for this admission?: Yes Summary: Patient's initial cardiac workup was all negative patient recently have a cardiac catheter done and agreed and will and it was all normal per cardiology and Dr. Owens suggest most likely has some GI symptoms continues to omeprazole Is already on a Coumadin with a therapeutic dose (2) CAD S/P percutaneous coronary angioplasty Is this a current diagnosis for this admission?: Yes Summary: Currently all stable (3) Congestive heart failure Is this a current diagnosis for this admission?: Yes Summary: Continues to current medications follow outpatients cardiology (4) Depression Is this a current diagnosis for this admission?: Yes Summary: Currently all stable (5) Diabetes mellitus type 2 in obese Is this a current diagnosis for this admission?: Yes Summary: Continues to current medications (6) Gastroesophageal reflux disease Is this a current diagnosis for this admission?: Yes (7) Hypertension Is this a current diagnosis for this admission?: Yes Summary: Currently well controlled (8) Morbid (severe) obesity with alveolar hypoventilation Is this a current diagnosis for this admission?: Yes (9) Atrial fibrillation Is this a current diagnosis for this admission?: Yes Summary: Currently on chronic Coumadin patients follow with the customs house broker for INR - Additional Information Discharge Diet: Diabetic Discharge Activity: Activity As Tolerated Home Medications: Acetaminophen [Tylenol Arthritis] 1,300 mg PO Q8HP PRN 06/04/18 Aspirin [Aspirin 325 mg Tablet] 325 mg PO DAILY 06/04/18 Atorvastatin Calcium [Lipitor 40 mg Tablet] 40 mg PO QPM 06/04/18 Celecoxib [Celebrex 100 mg Capsule] 100 mg PO BID 06/04/18 Diltiazem HCl [Cardizem Cd] 360 mg PO DAILY 06/04/18 Dulaglutide [Trulicity] 1.5 mg SQ FR 06/04/18 Furosemide [Lasix 20 mg Tablet] 20 mg PO BID 06/04/18 Hydralazine HCl [Apresoline 50 mg Tablet] 50 mg PO TID 06/04/18 Insulin Aspart [Novolog Flexpen] 0 units SQ .PERSLIDINGSCALE 06/04/18 Insulin Aspart [Novolog Flexpen] 12 units SQ TID 06/04/18 Insulin Glargine,Hum.rec.anlog [Lantus Solostar] 40 units SQ QHS 06/04/18 Lidocaine [Lidoderm 5% (700 mg) Transdermal Patch] 1 patch TD DAILY 06/04/18 Magnesium Oxide [Mag-Ox 400 mg Tablet] 400 mg PO DAILY 06/04/18 Metformin HCl [Glucophage] 1,000 mg PO BID 06/04/18 Metoprolol Tartrate [Lopressor 100 mg Tablet] 100 mg PO BID 06/04/18 Omeprazole 20 mg PO DAILY 06/04/18 Warfarin Sodium [Coumadin] 10 mg PO DAILY 06/04/18 Clonidine HCl [Catapres 0.3 mg Tablet] 0.3 mg PO TID 06/05/18 History of Present Illness History of Present Illness: YURY MCCULLOUGH is a 63 year old female This is a 63-year-old female as medical problem about admitting in the hospital for the chest pain to [facility]: This 63-year-old female admitting in the hospital for the chest pain to rule out acute coronary syndrome and patient all cardiac workup is negative's patient seen by Dr. Dr. Owens with a recent cardiac cath was all stable and suggest to follow outpatient Patient's when I saw in the hospital denied any chest pain denied any shortness of the breath This ambulatory in the hallway without any problems Other medical problem was all stable Patient expressed to go home At this point discussed with the cardiology and suggest patients can discharge and follow-up outpatient Physical Exam Vital Signs: Temp Pulse Resp BP Pulse Ox 98.8 F 69 16 156/73 H 100 06/06/18 10:48 06/06/18 10:48 06/06/18 10:48 06/06/18 10:48 06/06/18 10:48 Intake & Output 06/05/18 06/06/18 06/07/18 06:59 06:59 06:59 Intake Total 911 540 Balance 911 540 Weight 146.1 kg 145.9 kg General appearance: PRESENT: no acute distress, well-developed, well-nourished Head exam: PRESENT: atraumatic, normocephalic Eye exam: PRESENT: conjunctiva pink, EOMI, PERRLA. ABSENT: scleral icterus Ear exam: PRESENT: normal external ear exam Mouth exam: PRESENT: moist, tongue midline Neck exam: PRESENT: full ROM. ABSENT: carotid bruit, JVD, lymphadenopathy, thyromegaly Respiratory exam: PRESENT: clear to auscultation johanna Cardiovascular exam: PRESENT: RRR. ABSENT: diastolic murmur, rubs, systolic murmur Pulses: PRESENT: normal dorsalis pedis pul, +2 pedal pulses bilateral Vascular exam: PRESENT: normal capillary refill GI/Abdominal exam: PRESENT: normal bowel sounds, soft. ABSENT: distended, guarding, mass, organolmegaly, rebound, tenderness Rectal exam: PRESENT: deferred Extremities exam: ABSENT: pedal edema Musculoskeletal exam: PRESENT: ambulatory Neurological exam: PRESENT: alert, awake, oriented to person, oriented to place , oriented to time, oriented to situation, CN II-XII grossly intact. ABSENT: motor sensory deficit Psychiatric exam: PRESENT: appropriate affect, normal mood. ABSENT: homicidal ideation, suicidal ideation Skin exam: PRESENT: dry, intact, warm. ABSENT: cyanosis, rash Results Laboratory Results: 06/05/18 06:35 06/05/18 06:35 06/04/18 06/04/18 06/05/18 16:07 16:07 06:35 Creatine Kinase 46 66 CK-MB (CK-2) 0.43 Troponin I < 0.012 06/05/18 06:35 Creatine Kinase CK-MB (CK-2) 0.60 Troponin I 0.014 Impressions: Chest X-Ray 06/04/18 12:04 IMPRESSION: NO ACUTE FINDINGS. Qualifiers - * PATIENT BEING DISCHARGED WITH ANY OF THE FOLLOWING DIAGNOSIS: No VTE patient discharged on overlapping Therapy?: Yes Plan Time Spent: Greater than 30 Minutes - Discharge home with a stable conditions follow outpatient in 1 week
[2018-06-06] MEDS ORDERED: HYDRALAZINE HCL 50 MG TABLET PO SCH (14:00)
[2018-06-06] MEDS ORDERED: PHARMACY COMMUNICATION ORDER MC SCH (22:00)
[2018-06-07] MEDS ORDERED: LANSOPRAZOLE 30 MG TAB.RAP.DR PO SCH (06:00)
[2018-06-10] MEDS ORDERED: (PENDING PHARMACY ID) (Dulaglutide [Trulicity] 1.5 MG) SQ SCH (18:10)
== END 2018-06-06 11:55 | disposition home or self-care (01) ==
LOC: ER 11:47 → EH 13:36 → 4S 15:08 → 4N 06-06 04:44
PROVIDERS: ADMIT Internal Medicine Geriatric Medicine; ATTEND Internal Medicine Geriatric Medicine
DX: R07.89 Other chest pain (principal); I25.10 Atherosclerotic heart disease of native coronary artery without angina pectoris; F32.9 Major depressive disorder, single episode, unspecified; I11.0 Hypertensive heart disease with heart failure; I50.9 Heart failure, unspecified; K21.9 Gastro-esophageal reflux disease without esophagitis; E11.9 Type 2 diabetes mellitus without complications; E66.2 Morbid (severe) obesity with alveolar hypoventilation; I48.2 Chronic atrial fibrillation; E78.5 Hyperlipidemia, unspecified; R60.0 Localized edema; M13.89 Other specified arthritis, multiple sites; R94.31 Abnormal electrocardiogram [ECG] [EKG]; I25.2 Old myocardial infarction; Z79.01 Long term (current) use of anticoagulants; Z68.43 Body mass index [BMI] 50.0-59.9, adult; Z79.82 Long term (current) use of aspirin; Z79.4 Long term (current) use of insulin; Z79.899 Other long term (current) drug therapy; Z95.5 Presence of coronary angioplasty implant and graft; Z85.3 Personal history of malignant neoplasm of breast; Z87.891 Personal history of nicotine dependence; Z82.49 Family history of ischemic heart disease and other diseases of the circulatory system; Z79.1 Long term (current) use of non-steroidal anti-inflammatories (NSAID)
CPT/HCPCS: 93005 ×2; 99285; 36415 ×3; 82553 ×2; 82962 ×3; 82550 ×2; 85025 ×2; 85610 ×3; 80053 ×2; 84484 ×2; 83036; 80061; 71045; 93010; A9270 ×28; G0378; J1815

== ENCOUNTER 2018-06-18 12:15 | Emergency (ER) | payer MEDICARE, MEDICAID ==
--- NOTE | 2018-06-18 12:47 | ER Document Report ---
ED Medical Screen (RME) - General Chief Complaint: Vaginal Bleeding Stated Complaint: VAGINAL BLEEDING Time Seen by Provider: 06/18/18 12:45 Mode of Arrival: Wheelchair Information source: Patient, Relative TRAVEL OUTSIDE OF THE [place] IN LAST 30 DAYS: No - HPI Patient complains to provider of: vaginal bleeding Onset: Yesterday - pt with abnormal vaginal bleeding which started yesterday. She is on coumadin daily. Denies pain - Related Data Allergies/Adverse Reactions: naproxen [From Naprosyn] Allergy (Severe, Verified 06/04/18 11:48) FEELS "ON FIRE" Penicillins Allergy (Intermediate, Verified 06/04/18 11:48) broke out in white blisters niacin [Niacin] Allergy (Mild, Verified 06/04/18 11:48) "on fire" oxycodone HCl [From Percocet] Allergy (Mild, Verified 06/04/18 11:48) itchy propoxyphene napsylate [From Darvocet-N 100] Allergy (Mild, Verified 06/04/18 11 :48) itchy Past Medical History - Social History Family history: None, Other - NEG DVT/PE - Past Medical History Cardiac Medical History: Reports: Hx Atrial Fibrillation, Hx Congestive Heart Failure, Hx Coronary Artery Disease, Hx Heart Attack - 2009, Hx Hypercholesterolemia, Hx Hypertension Pulmonary Medical History: Denies: Hx Asthma, Hx Bronchitis, Hx COPD, Hx Pneumonia Neurological Medical History: Denies: Hx Cerebrovascular Accident, Hx Seizures Endocrine Medical History: Reports: Hx Diabetes Mellitus Type 2 Renal/ Medical History: Denies: Hx Peritoneal Dialysis Malignancy Medical History: Reports: Hx Breast Cancer GI Medical History: Reports: Hx Gastroesophageal Reflux Disease Musculoskeltal Medical History: Reports Hx Arthritis - degenerative Psychiatric Medical History: Reports: Hx Depression Past Surgical History: Reports: Hx Breast Surgery - right lumpectomy, Hx Cardiac Catheterization - stent, Hx Section - x 2, Hx Orthopedic Surgery - GANGLION CYST. Denies: Hx Pacemaker - Immunizations Hx Diphtheria, Pertussis, Tetanus Vaccination: No History of Influenza Vaccine for 06/2017 - 11/2017 Season: No Physical Exam - Vital signs Vitals: Temp Pulse Resp BP Pulse Ox 98.7 F 81 16 163/92 H 97 06/18/18 12:21 06/18/18 12:21 06/18/18 12:21 06/18/18 12:21 06/18/18 12:21 Course - Vital Signs Vital signs: Temp Pulse Resp BP Pulse Ox 98.7 F 81 16 163/92 H 97 06/18/18 12:21 06/18/18 12:21 06/18/18 12:21 06/18/18 12:21 06/18/18 12:21 Doctor's Discharge - Discharge Referrals: BUTCH DIAZ MD [Primary Care Provider] - Follow up as needed
[2018-06-18 13:39] LABS: ABSOLUTE EOSINOPHILS # (AUTO) 0.2 10^3/uL (0.0-0.6); ABSOLUTE LYMPHOCYTES (AUTO) 1.2 10^3/uL (0.5-4.7); ABSOLUTE MONOCYTES (AUTO) 0.5 10^3/uL (0.1-1.4); ABSOLUTE NEUT (AUTO) 3.8 10^3/uL (1.7-8.2); BASOPHILS % (AUTO) 0.6 % (0-2); EOSINOPHILS % (AUTO) 2.7 % (0-6); HEMATOCRIT 36.9 % (36.0-47.0); HEMOGLOBIN 11.8 g/dL (12.0-15.5); INTERNATIONAL RATION (INR) 2.57; LYMPHOCYTES % (AUTO) 20.5 % (13-45); MEAN CORPUSCULAR HEMOGLOBIN 25.7 pg (27.0-33.4); MEAN CORPUSCULAR HGB CONC 32.1 g/dL (32.0-36.0); MEAN CORPUSCULAR VOLUME 80 fl (80-97); MONOCYTES % (AUTO) 8.6 % (3-13); PLATELET COUNT 231 10^3/uL (150-450); PROTHROMBIN TIME 28.8 SEC (11.4-15.4); RED BLOOD COUNT 4.59 10^6/uL (3.72-5.28); RED CELL DISTRIBUTION WIDTH 15.4 % (11.5-14.0); SEGMENTED NEUTROPHILS % (AUTO) 67.6 % (42-78); TOTAL CELLS COUNTED % (AUTO) 100 %; WHITE BLOOD COUNT 5.6 10^3/uL (4.0-10.5)
--- NOTE | 2018-06-18 13:55 | ER Document Report ---
ED General - General Chief Complaint: Vaginal Bleeding Stated Complaint: VAGINAL BLEEDING Time Seen by Provider: 06/18/18 12:45 Mode of Arrival: Wheelchair TRAVEL OUTSIDE OF THE [place] IN LAST 30 DAYS: No - HPI Notes: Patient is a 63-year-old female that presents to the emergency department for chief complaint of vaginal bleeding. Patient is on Coumadin for history of atrial fibrillation. Her last INR she states was 2.6 on 06/06. Yesterday she started having vaginal bleeding. She reports 2 episodes of heavy bleeding yesterday and continuous bleeding today. She states occasionally she feels lightheaded when she stands up or moves. She denies needing blood transfusion in the past. She denies history of dysfunctional uterine bleeding. Her last menstrual cycle was in 2004. 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 She denies any nausea, vomiting, abdominal pain and diarrhea. Past Medical History: Atrial fibrillation Past Surgical History: reviewed in chart Social History: Reviewed in chart Family History: Reviewed and noncontributory for presenting illness Allergies: Reviewed, see documented allergy list. REVIEW OF SYSTEMS: CONSTITUTIONAL : No fever No chills No diaphoresis No recent illness EENT: No vision changes No congestion No sore throat CARDIOVASCULAR: Lightheadedness No chest pain No palpitations RESPIRATORY: No shortness of breath No cough No difficulty breathing GASTROINTESTINAL: No abdominal pain No nausea No vomiting No diarrhea GENITOURINARY: No dysuria No hematuria No difficulty urinating Vaginal bleeding MUSCULOSKELETAL: No back pain No leg pain No arm pain SKIN: No rashes No lesions LYMPHATIC: No swollen, enlarged glands. NEUROLOGICAL: No lightheadedness No headache No weakness No paresthesias PSYCHIATRIC: No anxiety No depression PHYSICAL EXAMINATION: Vital signs reviewed, nursing noted reviewed. GENERAL: Well-appearing, well-nourished and in no acute distress. HEAD: Atraumatic, normocephalic. EYES: Eyes appear normal, extraocular movements intact, sclera anicteric, conjunctiva are normal. ENT: nares patent, oropharynx clear without exudates. Moist mucous membranes. NECK: Normal range of motion, supple without lymphadenopathy LUNGS: Breath sounds clear to auscultation bilaterally and equal. No wheezes rales or rhonchi. HEART: Regular rate and rhythm without murmurs ABDOMEN: Soft, nontender, normoactive bowel sounds. No rebound, guarding, or rigidity. No masses appreciated. : Trace red blood in vaginal vault. No active vaginal bleeding. No external lesions EXTREMITIES: Nontender, good range of motion, no pitting or edema. NEUROLOGICAL: No focal neurological deficits. Moves all extremities spontaneously Motor and sensory grossly intact on exam. PSYCH: Normal mood, normal affect. SKIN: Warm, Dry, normal turgor, no rashes or lesions noted on exposed skin - Related Data Allergies/Adverse Reactions: naproxen [From Naprosyn] Allergy (Severe, Verified 06/04/18 11:48) FEELS "ON FIRE" Penicillins Allergy (Intermediate, Verified 06/04/18 11:48) broke out in white blisters niacin [Niacin] Allergy (Mild, Verified 06/04/18 11:48) "on fire" oxycodone HCl [From Percocet] Allergy (Mild, Verified 06/04/18 11:48) itchy propoxyphene napsylate [From Darvocet-N 100] Allergy (Mild, Verified 06/04/18 11 :48) itchy Past Medical History - General Information source: Patient, Relative - Social History Smoking Status: Never Smoker Chew tobacco use (# tins/day): No Frequency of alcohol use: None Drug Abuse: None Family History: CAD, Other - No FH of DVT/PE Patient has suicidal ideation: No Patient has homicidal ideation: No - Past Medical History Cardiac Medical History: Reports: Hx Atrial Fibrillation, Hx Congestive Heart Failure, Hx Coronary Artery Disease, Hx Heart Attack - 2010, Hx Hypercholesterolemia, Hx Hypertension Pulmonary Medical History: Denies: Hx Asthma, Hx Bronchitis, Hx COPD, Hx Pneumonia Neurological Medical History: Denies: Hx Cerebrovascular Accident, Hx Seizures Endocrine Medical History: Reports: Hx Diabetes Mellitus Type 2 Renal/ Medical History: Denies: Hx Peritoneal Dialysis Malignancy Medical History: Reports: Hx Breast Cancer GI Medical History: Reports: Hx Gastroesophageal Reflux Disease Musculoskeletal Medical History: Reports Hx Arthritis - degenerative Psychiatric Medical History: Reports: Hx Depression Past Surgical History: Reports: Hx Breast Surgery - right lumpectomy, Hx Cardiac Catheterization - stent, Hx Section - x 2, Hx Orthopedic Surgery - GANGLION CYST. Denies: Hx Pacemaker - Immunizations Hx Diphtheria, Pertussis, Tetanus Vaccination: No Hx Pneumococcal Vaccination: 07/07/12 Review of Systems - Review of Systems Notes: Dictated Physical Exam - Vital signs Vitals: Temp Pulse Resp BP Pulse Ox 98.7 F 81 16 163/92 H 97 06/18/18 12:21 06/18/18 12:21 06/18/18 12:21 06/18/18 12:21 06/18/18 12:21 - Notes Notes: Dictated Course - Re-evaluation Re-evalutation: 06/18/18 13:53 Vitals reviewed. Nursing notes reviewed. 06/18/18 14:07 Vaginal exam shows no active bleeding. She has trace red blood in her vaginal vault. Her INR is therapeutic at 2.6. Hemoglobin is stable. She is not tachycardic or hypotensive. Patient was counseled on following with [facility] on Wednesday if her vaginal bleeding continues. If she begins to have worsening lightheadedness, palpitations or increased in the amount of bleeding she is to return to the emergency room for reevaluation. Patient was discharged home in stable condition. Laboratory 06/18/18 06/18/18 06/18/18 13:03 13:03 13:03 WBC 5.6 RBC 4.59 Hgb 11.8 L Hct 36.9 MCV 80 MCH 25.7 L MCHC 32.1 RDW 15.4 H Plt Count 231 Seg Neutrophils % 67.6 Lymphocytes % 20.5 Monocytes % 8.6 Eosinophils % 2.7 Basophils % 0.6 Absolute Neutrophils 3.8 Absolute Lymphocytes 1.2 Absolute Monocytes 0.5 Absolute Eosinophils 0.2 Absolute Basophils 0.0 PT 28.8 H INR 2.57 Sodium 142.4 Potassium 4.3 Chloride 108 H Carbon Dioxide 25 Anion Gap 9 BUN 15 Creatinine 0.88 Est GFR ( Amer) > 60 Est GFR (Non-Af Amer) > 60 Glucose 151 H Calcium 9.8 Total Bilirubin 0.5 Direct Bilirubin 0.1 Neonat Total Bilirubin Not Reportable Neonat Direct Bilirubin Not Reportable Neonat Indirect Bili Not Reportable AST 23 ALT 36 Alkaline Phosphatase 74 Total Protein 6.5 Albumin 3.8 - Vital Signs Vital signs: Temp Pulse Resp BP Pulse Ox 98.7 F 81 16 163/92 H 97 06/18/18 12:21 06/18/18 12:21 06/18/18 12:21 06/18/18 12:21 06/18/18 12:21 - Laboratory Result Diagrams: 06/18/18 13:03 06/18/18 13:03 Laboratory results interpreted by me: 06/18/18 06/18/18 13:03 13:03 Hgb 11.8 L MCH 25.7 L RDW 15.4 H PT 28.8 H Discharge - Discharge Clinical Impression: Dysfunctional uterine bleeding Condition: Stable Disposition: HOME, SELF-CARE Instructions: Dysfunctional Uterine Bleeding ([facility]) Additional Instructions: Please return to the emergency department if you have any worsening, or concern of your symptoms. Please return to the emergency department if you develop chest pain, difficulty breathing, severe abdominal pain, or ongoing vomiting. Please follow-up with your primary care physician in 2-3 days and any other recommended physicians. If prescribed, take all medications as directed. If you have any questions or concerns do not hesitate to return the emergency department for evaluation. [] Referrals: BUTCH DIAZ MD [Primary Care Provider] - Follow up as needed [facility] [Provider Group] - Follow up in 3-5 days
[2018-06-18 14:04] LABS: ALANINE AMINOTRANSFERASE 36 U/L (9-52); ALBUMIN 3.8 g/dL (3.5-5.0); ALKALINE PHOSPHATASE 74 U/L (38-126); ANION GAP 9 (5-19); ASPARTATE AMINO TRANSFERASE 23 U/L (14-36); BILIRUBIN,DIRECT 0.1 mg/dL (0.0-0.4); BILIRUBIN,TOTAL 0.5 mg/dL (0.2-1.3); BLOOD UREA NITROGEN 15 mg/dL (7-20); CALCIUM 9.8 mg/dL (8.4-10.2); CARBON DIOXIDE 25 mmol/L (22-30); CHLORIDE 108 mmol/L (98-107); GLUCOSE 151 mg/dL (75-110); POTASSIUM 4.3 mmol/L (3.6-5.0); SODIUM 142.4 mmol/L (137-145); TOTAL PROTEIN 6.5 g/dL (6.3-8.2)
[2018-06-18 14:32] VITALS: BP 156/88
== END 2018-06-18 14:31 | disposition home or self-care (01) ==
LOC: ER 12:15
DX: N93.8 Other specified abnormal uterine and vaginal bleeding (principal); I48.91 Unspecified atrial fibrillation; I50.9 Heart failure, unspecified; E78.00 Pure hypercholesterolemia, unspecified; I11.0 Hypertensive heart disease with heart failure; Z79.01 Long term (current) use of anticoagulants; Z88.0 Allergy status to penicillin; Z88.6 Allergy status to analgesic agent; I25.2 Old myocardial infarction
CPT/HCPCS: 36415; 80053; 85025; 85610; 99284

== ENCOUNTER 2018-06-19 12:18 | Emergency (ER) | payer MEDICARE, MEDICAID ==
--- NOTE | 2018-06-19 13:27 | ER Document Report ---
ED Medical Screen (RME) - General Chief Complaint: Vaginal Bleeding Stated Complaint: VAGINAL BLEEDING Time Seen by Provider: 06/19/18 13:21 Notes: Patient is a 63-year-old female with history of atrial fibrillation on Coumadin that presents to the emergency department for chief complaint of vaginal bleeding. Patient was seen yesterday for the similar complaints, states that she continues to have bleeding, and clots, this is concerning her so she returned to the emergency department. ROS: Unless otherwise stated in this report the patient's positive and negative responses for review of systems for constitutional, eyes, ENT, cardiovascular, respiratory, gastrointestinal, neurological, genitourinary, musculoskeletal, and integumentary systems and related systems to the presenting problem are either as stated in the HPI or were not pertinent or were negative for the symptoms and/or complaints related to the presenting medical problem. PHYSICAL EXAMINATION: Vital signs reviewed. GENERAL: Well-appearing, well-nourished and in no acute distress. HEAD: Atraumatic, normocephalic. EYES: Pupils equal round extraocular movements intact, conjunctiva are normal. ENT: Nares patent NECK: Normal range of motion CV: Heart regular rate and rhythm LUNGS: No respiratory distress Musculoskeletal: Normal range of motion NEUROLOGICAL: Normal speech PSYCH: Normal mood, normal affect. MDM: Patient seen and examined for rapid initial assessment. Vital signs reviewed. A comprehensive ED assessment and evaluation of the patient, analysis of test results and completion of the medical decision making process will be conducted by additional ED providers. *Note is created using voice recognition software and may contain spelling, syntax or grammatical errors. TRAVEL OUTSIDE OF THE [place] IN LAST 30 DAYS: No - Related Data Allergies/Adverse Reactions: naproxen [From Naprosyn] Allergy (Severe, Verified 06/19/18 12:19) FEELS "ON FIRE" Penicillins Allergy (Intermediate, Verified 06/19/18 12:19) broke out in white blisters niacin [Niacin] Allergy (Mild, Verified 06/19/18 12:19) "on fire" oxycodone HCl [From Percocet] Allergy (Mild, Verified 06/19/18 12:19) itchy propoxyphene napsylate [From Darvocet-N 100] Allergy (Mild, Verified 06/19/18 12 :19) itchy Past Medical History - Social History Frequency of alcohol use: None Drug Abuse: None Family history: None, Other - NEG DVT/PE - Past Medical History Cardiac Medical History: Reports: Hx Atrial Fibrillation, Hx Congestive Heart Failure, Hx Coronary Artery Disease, Hx Heart Attack - 2010, Hx Hypercholesterolemia, Hx Hypertension Pulmonary Medical History: Denies: Hx Asthma, Hx Bronchitis, Hx COPD, Hx Pneumonia Neurological Medical History: Denies: Hx Cerebrovascular Accident, Hx Seizures Endocrine Medical History: Reports: Hx Diabetes Mellitus Type 2 Renal/ Medical History: Denies: Hx Peritoneal Dialysis Malignancy Medical History: Reports: Hx Breast Cancer GI Medical History: Reports: Hx Gastroesophageal Reflux Disease Musculoskeltal Medical History: Reports Hx Arthritis - degenerative Psychiatric Medical History: Reports: Hx Depression Past Surgical History: Reports: Hx Breast Surgery - right lumpectomy, Hx Cardiac Catheterization - stent, Hx Section - x 2, Hx Orthopedic Surgery - GANGLION CYST. Denies: Hx Pacemaker - Immunizations Hx Diphtheria, Pertussis, Tetanus Vaccination: No History of Influenza Vaccine for 06/2017 - 11/2017 Season: No Physical Exam - Vital signs Vitals: Temp Pulse Resp BP Pulse Ox 98.6 F 80 16 158/91 H 97 06/19/18 12:25 06/19/18 12:25 06/19/18 12:25 06/19/18 12:25 06/19/18 12:25 Course - Vital Signs Vital signs: Temp Pulse Resp BP Pulse Ox 98.6 F 80 16 158/91 H 97 06/19/18 12:25 06/19/18 12:25 06/19/18 12:25 06/19/18 12:25 06/19/18 12:25 Doctor's Discharge - Discharge Referrals: BUTCH DIAZ MD [Primary Care Provider] - Follow up as needed
[2018-06-19 14:13] LABS: ABSOLUTE EOSINOPHILS # (AUTO) 0.1 10^3/uL (0.0-0.6); ABSOLUTE MONOCYTES (AUTO) 0.5 10^3/uL (0.1-1.4); BASOPHILS % (AUTO) 0.5 % (0-2); EOSINOPHILS % (AUTO) 2.4 % (0-6); HEMATOCRIT 36.1 % (36.0-47.0); HEMOGLOBIN 11.6 g/dL (12.0-15.5); LYMPHOCYTES % (AUTO) 17.4 % (13-45); MEAN CORPUSCULAR HEMOGLOBIN 25.8 pg (27.0-33.4); MEAN CORPUSCULAR HGB CONC 32.3 g/dL (32.0-36.0); MEAN CORPUSCULAR VOLUME 80 fl (80-97); MONOCYTES % (AUTO) 8.8 % (3-13); PLATELET COUNT 216 10^3/uL (150-450); RED BLOOD COUNT 4.51 10^6/uL (3.72-5.28); RED CELL DISTRIBUTION WIDTH 15.6 % (11.5-14.0); SEGMENTED NEUTROPHILS % (AUTO) 70.9 % (42-78); TOTAL CELLS COUNTED % (AUTO) 100 %; WHITE BLOOD COUNT 5.6 10^3/uL (4.0-10.5)
[2018-06-19 14:18] LABS: INTERNATIONAL RATION (INR) 2.41; PROTHROMBIN TIME 27.4 SEC (11.4-15.4)
--- NOTE | 2018-06-19 14:33 | ER Document Report ---
ED General - General Mode of Arrival: Ambulatory Information source: Patient TRAVEL OUTSIDE OF THE [place] IN LAST 30 DAYS: No <ARJUN HERNANDEZ - Last Filed: 06/19/18 14:38> <LELE MORAN - Last Filed: 06/19/18 16:37> - General Chief Complaint: Vaginal Bleeding Stated Complaint: VAGINAL BLEEDING Time Seen by Provider: 06/19/18 13:21 Notes: Patient is a 63 year old female with afib (on coumadin), CHF, type 2 diabetes, hyperlipidemia with a history of breast cancer presents to the emergency department complaining of vaginal bleeding onset 2 days ago. Patient presented and was discharged from this emergency department yesterday complaining of similar symptoms. Patient states the bleeding today has worsened and she has developed blood clots. She also complains of suprapubic back pain that radiates into her back. Of significance, during the patient's visit yesterday she had a hemoglobin of 12.0. Approximately 2 weeks ago patient presented to the ED complaining of chest pain and had a hemoglobin of 12.1. 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 (ARJUN HERNANDEZ) - Related Data Allergies/Adverse Reactions: naproxen [From Naprosyn] Allergy (Severe, Verified 06/19/18 12:19) FEELS "ON FIRE" Penicillins Allergy (Intermediate, Verified 06/19/18 12:19) broke out in white blisters niacin [Niacin] Allergy (Mild, Verified 06/19/18 12:19) "on fire" oxycodone HCl [From Percocet] Allergy (Mild, Verified 06/19/18 12:19) itchy propoxyphene napsylate [From Darvocet-N 100] Allergy (Mild, Verified 06/19/18 12 :19) itchy Past Medical History - General Information source: Patient - Social History Smoking Status: Never Smoker Cigarette use (# per day): No Chew tobacco use (# tins/day): No Frequency of alcohol use: None Drug Abuse: None Family History: CAD, Other - No FH of DVT/PE Patient has suicidal ideation: No Patient has homicidal ideation: No - Past Medical History Cardiac Medical History: Reports: Hx Atrial Fibrillation, Hx Congestive Heart Failure, Hx Coronary Artery Disease, Hx Heart Attack - 2010, Hx Hypercholesterolemia, Hx Hypertension Endocrine Medical History: Reports: Hx Diabetes Mellitus Type 2 Malignancy Medical History: Reports: Hx Breast Cancer GI Medical History: Reports: Hx Gastroesophageal Reflux Disease Musculoskeletal Medical History: Reports Hx Arthritis - degenerative Psychiatric Medical History: Reports: Hx Depression Past Surgical History: Reports: Hx Breast Surgery - right lumpectomy, Hx Cardiac Catheterization - stent, Hx Section - x 2, Hx Orthopedic Surgery - GANGLION CYST - Immunizations Hx Diphtheria, Pertussis, Tetanus Vaccination: No Hx Pneumococcal Vaccination: 07/07/12 <ARJUN HERNANDEZ - Last Filed: 06/19/18 14:38> Review of Systems - Review of Systems Constitutional: No symptoms reported EENT: No symptoms reported Cardiovascular: No symptoms reported Respiratory: No symptoms reported Gastrointestinal: See HPI, Abdominal pain Genitourinary: No symptoms reported Female Genitourinary: See HPI, Vaginal bleeding Musculoskeletal: See HPI, Back pain Skin: No symptoms reported Hematologic/Lymphatic: No symptoms reported Neurological/Psychological: No symptoms reported -: Yes All other systems reviewed and negative <ARJUN HERNANDEZ Last Filed: 06/19/18 14:38> Physical Exam - General General appearance: Appears well, Alert In distress: None - HEENT Head: Normocephalic, Atraumatic Eyes: Normal Conjunctiva: Normal Extraocular movements intact: Yes Pupils: PERRL Mucous membranes: Normal Neck: Normal - Respiratory Respiratory status: No respiratory distress Chest status: Nontender Breath sounds: Normal Chest palpation: Normal - Cardiovascular Rhythm: Regular Heart sounds: Normal auscultation Murmur: No Friction rub: No Gallop: None auscultated - Abdominal Inspection: Morbidly Obese Distension: No distension Bowel sounds: Normal Tenderness: Nontender Organomegaly: No organomegaly - Back Back: Normal - Extremities General upper extremity: Normal ROM. No: Edema General lower extremity: Normal ROM. No: Edema - Neurological Neuro grossly intact: Yes Cognition: Normal Orientation: AAOx4 [place] Coma Scale Eye Opening: Spontaneous [place] Coma Scale Verbal: Oriented [place] Coma Scale Motor: Obeys Commands [place] Coma Scale Total: 15 Speech: Normal - Psychological Associated symptoms: Normal affect, Normal mood - Skin Skin Temperature: Warm Skin Moisture: Dry Skin Color: Normal <ARJUN HERNANDEZ Filed: 06/19/18 14:38> - Vital signs Vitals: Temp Pulse Resp BP Pulse Ox 98.6 F 80 16 158/91 H 97 06/19/18 12:25 06/19/18 12:25 06/19/18 12:25 06/19/18 12:25 06/19/18 12:25 Course - Laboratory Result Diagrams: 06/19/18 13:45 06/19/18 13:45 <ARJUN HERNANDEZ - Last Filed: 06/19/18 14:38> - Laboratory Result Diagrams: 06/19/18 13:45 06/19/18 13:45 <LELE MORAN - Last Filed: 06/19/18 16:37> - Vital Signs Vital signs: Temp Pulse Resp BP Pulse Ox 98.6 F 80 16 158/91 H 97 06/19/18 12:25 06/19/18 12:25 06/19/18 12:25 06/19/18 12:25 06/19/18 12:25 - Laboratory Laboratory results interpreted by me: 06/19/18 06/19/18 06/19/18 13:45 13:45 13:45 Hgb 11.6 L MCH 25.8 L RDW 15.6 H PT 27.4 H Glucose 203 H Discharge <ARJUN HERNANDEZ - Last Filed: 06/19/18 14:38> <LELE MORAN - Last Filed: 06/19/18 16:37> - Discharge Clinical Impression: Post-menopausal bleeding Condition: Stable Additional Instructions: Dysfunctional Uterine Bleeding Where the bleeding is significant, high-dose estrogen will usually stop the bleeding within a day of two. A cycle or two of hormones ( control pills) can help restore the uterus to normal. In some patients where bleeding is severe or resistant to treatment, a D&C is required. A endometrial biopsy (a sample of the inside of the uterus) may be recommended for some older women. This would be done by a gynecology specialist. Treatment for anemia may be required if bleeding is severe. You should rest and avoid intercourse until the bleeding is controlled. Call the doctor or return for re-examination if you feel faint, have increasing pain, or have a major increase in the amount of bleeding. Take the Provera as prescribed. Start with your first dose this evening. You will take 2 pills 3 times a day for 3 days, and then 2 pills once daily until gone. Call [facility] in the morning to schedule an appointment this week. RETURN TO THE EMERGENCY ROOM IF ANY NEW OR WORSENING SYMPTOMS. Prescriptions: Medroxyprogesterone Acet [Provera 10 Mg Tablet] 10 mg PO ASDIR PRN #22 tablet PRN Reason: Referrals: [facility] [Provider Group] - Follow up in 3-5 days Scribe Attestation: 06/19/18 15:22 I personally performed the services described in the documentation, reviewed and edited the documentation which was dictated to the scribe in my presence, and it accurately records my words and actions. (LELE MORAN) Scribe Documentation - Scribe Written by Praveen:: Praveen Baldwin, 06/19/2018 14:35 acting as scribe for :: Judy <ARJUN HERNANDEZ - Last Filed: 06/19/18 14:38>
[2018-06-19 14:40] LABS: ALANINE AMINOTRANSFERASE 33 U/L (9-52); ALBUMIN 3.6 g/dL (3.5-5.0); ALKALINE PHOSPHATASE 58 U/L (38-126); ANION GAP 9 (5-19); ASPARTATE AMINO TRANSFERASE 24 U/L (14-36); BILIRUBIN,DIRECT 0.1 mg/dL (0.0-0.4); BILIRUBIN,TOTAL 0.5 mg/dL (0.2-1.3); BLOOD UREA NITROGEN 14 mg/dL (7-20); CALCIUM 9.9 mg/dL (8.4-10.2); CARBON DIOXIDE 25 mmol/L (22-30); CHLORIDE 105 mmol/L (98-107); GLUCOSE 203 mg/dL (75-110); POTASSIUM 4.6 mmol/L (3.6-5.0); SODIUM 139.2 mmol/L (137-145); TOTAL PROTEIN 6.3 g/dL (6.3-8.2)
--- NOTE | 2018-06-19 15:39 | RADIOLOGY REPORT (SQ) ---
EXAM DESCRIPTION: U/S NON-OB PELVIS TV W/O DOP COMPLETED DATE/TIME: 06/19/2018 3:08 pm REASON FOR STUDY: post menopausal bleeding, on coumadin COMPARISON: None. TECHNIQUE: Dynamic and static grayscale images acquired of the pelvis via transvaginal approach and recorded on PACS. Additional selected color Doppler and spectral images recorded. LIMITATIONS: Body habitus. FINDINGS: UTERUS: Limited visualization. ENDOMETRIAL STRIPE: Limited visualization. CERVIX: No nabothian cysts. RIGHT OVARY AND DOPPLER: Ovary not visualized. LEFT OVARY AND DOPPLER: Ovary not visualized. FREE FLUID: None noted. OTHER: No other significant finding. MEASUREMENTS: UTERUS: 8.2 x 4.2 x 6 cm ENDOMETRIAL STRIPE: 8 mm RIGHT OVARY: Not visualized. LEFT OVARY: Not visualized. IMPRESSION: Limited exam. Nonvisualized ovaries. TECHNICAL DOCUMENTATION: JOB ID: [id number] [place]-72 2010 [employer]- All Rights Reserved Rev-01/21 Reading location - IP/workstation name: [employer]
[2018-06-19] MEDS ORDERED: MEDROXYPROGESTERONE ACET 10 MG TABLET PO ONE (16:30)
[2018-06-19 17:00] VITALS: BP 145/88
== END 2018-06-19 17:03 | disposition home or self-care (01) ==
LOC: ER 12:18
DX: N95.0 Postmenopausal bleeding (principal); M54.9 Dorsalgia, unspecified; I48.91 Unspecified atrial fibrillation; Z79.01 Long term (current) use of anticoagulants; I50.9 Heart failure, unspecified; E11.9 Type 2 diabetes mellitus without complications; E78.5 Hyperlipidemia, unspecified; Z85.3 Personal history of malignant neoplasm of breast
CPT/HCPCS: 99284; 36415; 85025; 85610; 80053; 76830; A9270; J3490

== ENCOUNTER 2018-07-20 08:28 | Day surgery (SDC) | payer MEDICARE, MEDICAID ==
--- NOTE | 2018-07-15 13:45 | EKG REPORT ---
SEVERITY:- ABNORMAL ECG - SINUS RHYTHM PROBABLE LEFT ATRIAL ABNORMALITY PROBABLE LVH WITH SECONDARY REPOL ABNRM : Confirmed by: Jeff Tafoya MD 15-Jul-2018 13:45:20
[2018-07-15 14:11] LABS: ABSOLUTE EOSINOPHILS # (AUTO) 0.1 10^3/uL (0.0-0.6); ABSOLUTE LYMPHOCYTES (AUTO) 1.4 10^3/uL (0.5-4.7); ABSOLUTE MONOCYTES (AUTO) 0.6 10^3/uL (0.1-1.4); ABSOLUTE NEUT (AUTO) 4.6 10^3/uL (1.7-8.2); BASOPHILS % (AUTO) 0.5 % (0-2); EOSINOPHILS % (AUTO) 1.8 % (0-6); HEMATOCRIT 36.4 % (36.0-47.0); HEMOGLOBIN 11.7 g/dL (12.0-15.5); LYMPHOCYTES % (AUTO) 20.4 % (13-45); MEAN CORPUSCULAR HEMOGLOBIN 25.6 pg (27.0-33.4); MEAN CORPUSCULAR HGB CONC 32.2 g/dL (32.0-36.0); MEAN CORPUSCULAR VOLUME 80 fl (80-97); MONOCYTES % (AUTO) 8.4 % (3-13); PLATELET COUNT 263 10^3/uL (150-450); RED BLOOD COUNT 4.58 10^6/uL (3.72-5.28); SEGMENTED NEUTROPHILS % (AUTO) 68.9 % (42-78); TOTAL CELLS COUNTED % (AUTO) 100 %; WHITE BLOOD COUNT 6.6 10^3/uL (4.0-10.5)
[2018-07-15 14:16] LABS: APPEARANCE,URINE CLOUDY; BILIRUBIN,URINE NEGATIVE (NEGATIVE); COLOR,URINE AMBER; GLUCOSE, URINE NEGATIVE (NEGATIVE); KETONES,URINE NEGATIVE (NEGATIVE); LEUKOCYTE ESTERASE,URINE MODERATE (NEGATIVE); NITRITE,URINE POSITIVE (NEGATIVE); PROTEIN,URINE 100 mg/dL (NEGATIVE); URINE SPECIFIC GRAVITY 1.024
[2018-07-15 14:28] LABS: URINE AMPHETAMINES SCREEN NEGATIVE; URINE BARBITURATES SCREEN NEGATIVE; URINE BENZODIAZEPINES SCREEN NEGATIVE; URINE METHADONE SCREEN NEGATIVE; URINE PHENCYCLIDINE SCREEN NEGATIVE
[2018-07-15 14:34] LABS: ALANINE AMINOTRANSFERASE 22 U/L (9-52); ALBUMIN 3.9 g/dL (3.5-5.0); ALKALINE PHOSPHATASE 78 U/L (38-126); ANION GAP 13 (5-19); ASPARTATE AMINO TRANSFERASE 18 U/L (14-36); BILIRUBIN,DIRECT 0.3 mg/dL (0.0-0.4); BILIRUBIN,TOTAL 0.5 mg/dL (0.2-1.3); BLOOD UREA NITROGEN 16 mg/dL (7-20); CALCIUM 9.8 mg/dL (8.4-10.2); CARBON DIOXIDE 22 mmol/L (22-30); CHLORIDE 108 mmol/L (98-107); GLUCOSE 136 mg/dL (75-110); POTASSIUM 4.7 mmol/L (3.6-5.0); SODIUM 142.7 mmol/L (137-145); TOTAL PROTEIN 6.6 g/dL (6.3-8.2)
[2018-07-15 14:39] LABS: URINE COCAINE SCREEN NEGATIVE
[2018-07-15 14:54] LABS: URINE MARIJUANA (THC) SCREEN NEGATIVE
[~2018-07-20 08:28] MED LIST: LACTATED RINGERS 1000 ML IV PRN; LIDOCAINE 0.5% INJ-PF (5 MG/ML) 50 ML SDV SUBCUT PRN
[2018-07-20 09:18] LABS: INTERNATIONAL RATION (INR) 1.09; PARTIAL THROMBOPLASTIN TIME 25.5 SEC (23.5-35.8); PROTHROMBIN TIME 14.7 SEC (11.4-15.4)
[2018-07-20 09:27] LABS: POTASSIUM 4.7 mmol/L (3.6-5.0)
[2018-07-20] MEDS ORDERED: KETAMINE HCL INJ 500 MG/10 ML VIAL ONE (09:47)
[2018-07-20] MEDS ORDERED: KETOROLAC TROMETHAMINE 60 MG/2 ML SDV ONE (09:48)
[2018-07-20] MEDS ORDERED: PROPOFOL INJ 200 MG/20 ML VIAL IV ONE (09:48)
[2018-07-20] MEDS ORDERED: MIDAZOLAM 2 MG/2 ML INJ ONE (09:48)
[2018-07-20] MEDS ORDERED: FENTANYL CITRATE INJ/PF 100 MCG/2 ML AMPUL ONE (09:48)
[2018-07-20] MEDS ORDERED: ACETAMINOPHEN 0 MG/0 ML RTUPB IV ONE (09:48)
[2018-07-20] MEDS ORDERED: HYDRALAZINE HCL INJ/PF 20 MG/1 ML SDV ONE (10:19)
[2018-07-20] MEDS ORDERED: PROMETHAZINE HCL INJ 25 MG/1 ML VIAL IV PRN ×2 (10:26)
[2018-07-20] MEDS ORDERED: ONDANSETRON HCL INJ/PF 4 MG/2 ML SDV IV PRN ×2 (10:26→12:00)
[2018-07-20] MEDS ORDERED: MEPERIDINE HCL/PF INJ 25 MG/1 ML DISP.SYRIN IV PRN (10:26)
[2018-07-20] MEDS ORDERED: FENTANYL CITRATE INJ/PF 100 MCG/2 ML AMPUL IV PRN ×3 (10:26)
[2018-07-20] MEDS ORDERED: DIPHENHYDRAMINE HCL 50 MG/ML VIAL IV PRN (10:26)
[2018-07-20] MEDS: FENTANYL CITRATE INJ/PF 100 MCG/2 ML AMPUL ONE ×2 (11:04→11:11)
--- NOTE | 2018-07-20 11:06 | Operative Report ---
Operative Report DATE OF SURGERY: 07/20/18 PREOPERATIVE DIAGNOSIS: 1. Postmenopausal bleeding. 2. Morbid obesity POSTOPERATIVE DIAGNOSIS: Same OPERATION: 1. Diagnostic hysteroscopy. 2. Dilatation and curettage SURGEON: PETTY HOPKINS ANESTHESIA: GA TISSUE REMOVED OR ALTERED: Endometrial curettings COMPLICATIONS: None ESTIMATED BLOOD LOSS: 10 mL INTRAOPERATIVE FINDINGS: Enlarged uterus, which sounded approximately 10 cm; uterine fundus not optimally visualized secondary to body habitus; somewhat fluffy endometrium PROCEDURE: Patient was brought to the operating room and general anesthesia was administered without difficulty. The patient was then prepared and draped in the normal sterile fashion in the dorsal lithotomy position. Next, a red Loera catheter was placed in the patient's bladder and it was evacuated of approximately 200 mL's of clear urine. Next, a bivalved speculum was placed in the patient's vagina and the anterior lip of the cervix was grasped with a single-tooth tenaculum. The uterus sounded approximately 10 cm. The positioning of this patient was awkward secondary to her extreme morbid obesity. I had to be very careful not to perforate her uterus secondary to the angle which was needed in order to visualize her cervix. The cervix was dilated enough already to accommodate the hysteroscope. The hysteroscope was primed with normal saline and introduced into the cervix, endometrial cavity and then into the uterine cavity. This patient was bleeding, therefore visualization was not optimal. Again, the angle to reach this patient's fundus was awkward. I slowly advanced the hysteroscope to the fundus which was not optimally seen. I did not visualize the ostia. The endometrium was somewhat fluffy in areas. I did not visualize any polyps or fibroids. I took several pictures of the uterine cavity. The hysteroscope was then removed from the patient's uterus. A sharp curettage was then performed with minimal endometrium extracted. This patient was bleeding, therefore I attempted to remove as much endometrium as possible to reduce her bleeding. The pathology sample was passed off to the OR tech. The single-tooth tenaculum was removed from the anterior lip, which was hemostatic. All other instruments were removed from patient's vagina. The patient tolerated the procedure well. Sponge and instrument counts were correct x2. Patient was taken to the recovery room in stable condition.
[2018-07-20] MEDS ORDERED: PROMETHAZINE HCL INJ 25 MG/1 ML VIAL ONE (11:07)
[2018-07-20] MEDS ORDERED: OXYCODONE-ACETAMINOPHEN 5-325 MG TABLET PO PRN ×2 (11:44→11:45)
[2018-07-20] MEDS ORDERED: IBUPROFEN 800 MG TABLET PO PRN (12:00)
[2018-07-20 13:40] VITALS: BP 146/72
== END 2018-07-20 12:50 | disposition home or self-care (01) ==
LOC: OROUT 08:28
PROVIDERS: ATTEND Obstetrics & Gynecology
DX: N95.0 Postmenopausal bleeding (principal); I10 Essential (primary) hypertension; I25.2 Old myocardial infarction; I48.91 Unspecified atrial fibrillation; E66.01 Morbid (severe) obesity due to excess calories; E78.5 Hyperlipidemia, unspecified; E11.9 Type 2 diabetes mellitus without complications; Z88.0 Allergy status to penicillin; Z88.5 Allergy status to narcotic agent; Z88.6 Allergy status to analgesic agent; Z79.01 Long term (current) use of anticoagulants; Z68.43 Body mass index [BMI] 50.0-59.9, adult; Z01.818 Encounter for other preprocedural examination; Z79.4 Long term (current) use of insulin; Z79.899 Other long term (current) drug therapy; Z79.84 Long term (current) use of oral hypoglycemic drugs; Z79.82 Long term (current) use of aspirin; Z85.3 Personal history of malignant neoplasm of breast; N84.0 Polyp of corpus uteri
CPT/HCPCS: 93005; 86900 ×2; 86901 ×2; 36415 ×2; 86850 ×2; 82947; 84132; 85025; 85610; 85730; 80053; 81001; 80307; 88305 ×2; 93010; 58558; J2250; J1885; J3010; J0360; J2550; J2704; 952; J0131; J3490

== ENCOUNTER 2018-11-29 12:58 | Emergency (ER) | payer MEDICARE, MEDICAID ==
[2018-11-29] MEDS ORDERED: PROCHLORPERAZINE EDISYLATE INJ 10 MG/2 ML VIAL IM ONE (13:20)
[2018-11-29] MEDS ORDERED: ACETAMINOPHEN 325 MG TABLET PO ONE (13:20)
--- NOTE | 2018-11-29 13:27 | ER Document Report ---
ED Medical Screen (RME) - General Chief Complaint: Headache Stated Complaint: HEADACHE Time Seen by Provider: 11/29/18 13:07 Primary Care Provider: BUTCH DIAZ MD [Primary Care Provider] - Follow up as needed Notes: Patient is a 63-year-old female with hypertension that presents to the emergency department for chief complaint of headache that started on this past . Patient reports she has a headache that starts in the front and wraps down to the base of her neck, and into her shoulders bilaterally, admits to having some vision changes, and some nausea associated with this. ROS: Other than noted above, the 12 point review of systems was reviewed with the patient and were negative, all pertinent findings are included in the HPI. PHYSICAL EXAMINATION: Vital signs reviewed. GENERAL: Obese female, appears uncomfortable HEAD: Atraumatic, normocephalic. EYES: Pupils equal round extraocular movements intact, conjunctiva are normal. ENT: Nares patent NECK: Normal range of motion CV: Heart regular rate and rhythm LUNGS: No respiratory distress Musculoskeletal: Normal range of motion NEUROLOGICAL: Normal speech PSYCH: Normal mood, normal affect. MDM: Patient seen and examined for rapid initial assessment. Vital signs reviewed. A comprehensive ED assessment and evaluation of the patient, analysis of test results and completion of the medical decision making process will be conducted by additional ED providers. *Note is created using voice recognition software and may contain spelling, syntax or grammatical errors. TRAVEL OUTSIDE OF THE [place] IN LAST 30 DAYS: No - Related Data Allergies/Adverse Reactions: naproxen [From Naprosyn] Allergy (Severe, Verified 11/29/18 13:02) FEELS "ON FIRE" Penicillins Allergy (Intermediate, Verified 11/29/18 13:02) broke out in white blisters niacin [Niacin] Allergy (Mild, Verified 11/29/18 13:02) "on fire" oxycodone HCl [From Percocet] Allergy (Mild, Verified 11/29/18 13:02) itchy propoxyphene napsylate [From Darvocet-N 100] Allergy (Mild, Verified 11/29/18 13:02) itchy Past Medical History - Social History Family history: None, Other - NEG DVT/PE - Past Medical History Cardiac Medical History: Reports: Hx Atrial Fibrillation, Hx Congestive Heart Failure, Hx Coronary Artery Disease, Hx Heart Attack - 2010, Hx Hypercholesterolemia, Hx Hypertension Pulmonary Medical History: Denies: Hx Asthma, Hx Bronchitis, Hx COPD, Hx Pneumonia Neurological Medical History: Denies: Hx Cerebrovascular Accident, Hx Seizures Endocrine Medical History: Reports: Hx Diabetes Mellitus Type 2 Renal/ Medical History: Denies: Hx Peritoneal Dialysis Malignancy Medical History: Reports: Hx Breast Cancer GI Medical History: Reports: Hx Gastroesophageal Reflux Disease Musculoskeltal Medical History: Reports Hx Arthritis - degenerative Psychiatric Medical History: Reports: Hx Depression Past Surgical History: Reports: Hx Breast Surgery - right lumpectomy, Hx Cardiac Catheterization - stent, Hx Section - x 2, Hx Orthopedic Surgery - GANGLION CYST. Denies: Hx Pacemaker - Immunizations Hx Diphtheria, Pertussis, Tetanus Vaccination: No History of Influenza Vaccine for 06/2017 - 11/2017 Season: No Physical Exam - Vital signs Vitals: Temp Pulse Resp BP Pulse Ox 98.6 F 81 16 208/86 H 96 11/29/18 13:06 11/29/18 13:06 11/29/18 13:06 11/29/18 13:06 11/29/18 13:06 Course - Vital Signs Vital signs: Temp Pulse Resp BP Pulse Ox 98.6 F 81 16 208/86 H 96 11/29/18 13:06 11/29/18 13:06 11/29/18 13:06 11/29/18 13:06 11/29/18 13:06 Doctor's Discharge - Discharge Referrals: BUTCH DIAZ MD [Primary Care Provider] - Follow up as needed
[2018-11-29 13:57] LABS: ABSOLUTE EOSINOPHILS # (AUTO) 0.2 10^3/uL (0.0-0.6); ABSOLUTE LYMPHOCYTES (AUTO) 1.1 10^3/uL (0.5-4.7); ABSOLUTE MONOCYTES (AUTO) 0.4 10^3/uL (0.1-1.4); ABSOLUTE NEUT (AUTO) 3.7 10^3/uL (1.7-8.2); BASOPHILS % (AUTO) 0.8 % (0-2); EOSINOPHILS % (AUTO) 3.5 % (0-6); HEMATOCRIT 38.4 % (36.0-47.0); HEMOGLOBIN 12.5 g/dL (12.0-15.5); MEAN CORPUSCULAR HEMOGLOBIN 26.6 pg (27.0-33.4); MEAN CORPUSCULAR HGB CONC 32.6 g/dL (32.0-36.0); MEAN CORPUSCULAR VOLUME 82 fl (80-97); MONOCYTES % (AUTO) 8.1 % (3-13); PLATELET COUNT 208 10^3/uL (150-450); RED BLOOD COUNT 4.71 10^6/uL (3.72-5.28); RED CELL DISTRIBUTION WIDTH 16.9 % (11.5-14.0); SEGMENTED NEUTROPHILS % (AUTO) 67.6 % (42-78); TOTAL CELLS COUNTED % (AUTO) 100 %; WHITE BLOOD COUNT 5.5 10^3/uL (4.0-10.5)
[2018-11-29 14:15] LABS: ALANINE AMINOTRANSFERASE 17 U/L (9-52); ALKALINE PHOSPHATASE 75 U/L (38-126); ANION GAP 11 (5-19); ASPARTATE AMINO TRANSFERASE 14 U/L (14-36); BILIRUBIN,DIRECT 0.3 mg/dL (0.0-0.4); BILIRUBIN,TOTAL 0.6 mg/dL (0.2-1.3); BLOOD UREA NITROGEN 12 mg/dL (7-20); CALCIUM 10.7 mg/dL (8.4-10.2); CARBON DIOXIDE 25 mmol/L (22-30); CHLORIDE 104 mmol/L (98-107); GLUCOSE 122 mg/dL (75-110); POTASSIUM 3.9 mmol/L (3.6-5.0); SODIUM 140.1 mmol/L (137-145); TOTAL PROTEIN 6.9 g/dL (6.3-8.2)
[2018-11-29 14:18] LABS: BURR CELLS 1+; OVALOCYTES 1+; POIKILOCYTOSIS 1+; SCHISTOCYTES SLIGHT
[2018-11-29 14:19] LABS: ANISOCYTOSIS 1+; PLATELET COMMENT ADEQUATE; POLYCHROMASIA SLIGHT
[2018-11-29 14:22] LABS: APPEARANCE,URINE CLEAR; BILIRUBIN,URINE NEGATIVE (NEGATIVE); COLOR,URINE YELLOW; GLUCOSE, URINE NEGATIVE (NEGATIVE); KETONES,URINE NEGATIVE (NEGATIVE); LEUKOCYTE ESTERASE,URINE SMALL (NEGATIVE); NITRITE,URINE NEGATIVE (NEGATIVE); PROTEIN,URINE NEGATIVE (NEGATIVE); URINE SPECIFIC GRAVITY 1.012; UROBILINOGEN,URINE NEGATIVE mg/dL (<2.0)
[2018-11-29] MEDS ORDERED: METHOCARBAMOL 750 MG TABLET PO ONE (14:25)
[2018-11-29 14:32] LABS: ADD MANUAL MICROSCOPIC YES
[2018-11-29 14:33] LABS: BACTERIA,URINE 2+ /HPF
--- NOTE | 2018-11-29 15:21 | RADIOLOGY REPORT (SQ) ---
EXAM DESCRIPTION: CT HEAD WITHOUT COMPLETED DATE/TIME: 11/29/2018 3:10 pm REASON FOR STUDY: WAGNER COMPARISON: 04/27/2016 TECHNIQUE: Axial images acquired through the brain without intravenous contrast. Images reviewed wi th bone, brain and subdural windows. Additional sagittal and coronal reconstructions were generated. Images stored on PACS. All CT scanners at this facility use dose modulation, iterative reconstruction, and/or weight based d osing when appropriate to reduce radiation dose to as low as reasonably achievable (ALARA). [facility]: Dose Right [facility]: CareDose [facility]: Dose Right [facility]: Teradose 4D [facility]: [employer] RADIATION DOSE: CT Rad equipment meets quality standard of care and radiation dose reduction techniq ues were employed. CTDIvol: 53.2 mGy. DLP: 964 mGy-cm. mGy. LIMITATIONS: None. FINDINGS: VENTRICLES: Normal size and contour. CEREBRUM: No masses. No hemorrhage. No midline shift. No evidence for acute infarction. Normal gra y/white matter differentiation. No areas of low density in the white matter. CEREBELLUM: No masses. No hemorrhage. No alteration of density. No evidence for acute infarction. EXTRAAXIAL SPACES: No fluid collections. No masses. ORBITS AND GLOBE: No intra- or extraconal masses. Normal contour of globe without masses. CALVARIUM: No fracture. PARANASAL SINUSES: No fluid or mucosal thickening. SOFT TISSUES: No mass or hematoma. OTHER: No other significant finding. IMPRESSION: No acute intracranial pathology. No noncontrast CT findings to explain headache. EVIDENCE OF ACUTE STROKE: NO. COMMENT: Quality ID # [id number]: Final reports with documentation of one or more dose reduction techniques (e.g., Automated exposure control, adjustment of the mA and/or kV according to patient size, use of iterative reconstruction technique) TECHNICAL DOCUMENTATION: JOB ID: [id number] [email or web address]- All Rights Reserved Reading location - IP/workstation name: [email or web address]
[2018-11-29 15:29] VITALS: BP 133/73
--- NOTE | 2018-11-29 16:05 | ER Document Report ---
ED General - General Chief Complaint: Headache Stated Complaint: HEADACHE Time Seen by Provider: 11/29/18 13:07 Primary Care Provider: BUTCH DIAZ MD [Primary Care Provider] - Follow up as needed TRAVEL OUTSIDE OF THE [place] IN LAST 30 DAYS: No - HPI Notes: Patient presents to the emergency department for evaluation of a headache. She states this started , gradually. She noticed it first on the right part of her neck, had soreness with movement. She now has pain that radiates from her neck up into her head. Occasionally radiates into her right shoulder. She describes it as a squeezing. She states it is worsened by laying her head back on a pillow, as well as leaning forward. She denies any fevers or chills. She states she felt somewhat dizzy when she woke up on Wednesday but that has resolved. She denies any difficulty seeing, speaking, swallowing. Moving arms and legs without difficulty. Patient remarks that her blood pressure is normally not well controlled. She also states that she did not take any of her blood pressure medications today. She states she normally takes them with food but did not want to eat since she was coming here. She states she is normally compliant with her medications. She states that the medications given after b eing seen by the triage physician did help slightly. - Related Data Allergies/Adverse Reactions: naproxen [From Naprosyn] Allergy (Severe, Verified 11/29/18 13:02) FEELS "ON FIRE" Penicillins Allergy (Intermediate, Verified 11/29/18 13:02) broke out in white blisters niacin [Niacin] Allergy (Mild, Verified 11/29/18 13:02) "on fire" oxycodone HCl [From Percocet] Allergy (Mild, Verified 11/29/18 13:02) itchy propoxyphene napsylate [From Darvocet-N 100] Allergy (Mild, Verified 11/29/18 13:02) itchy Past Medical History - General Information source: Patient - Social History Smoking Status: Unknown if Ever Smoked Family History: CAD, Other - No FH of DVT/PE Patient has suicidal ideation: No Patient has homicidal ideation: No - Past Medical History Cardiac Medical History: Reports: Hx Atrial Fibrillation, Hx Congestive Heart Failure, Hx Coronary Artery Disease, Hx Heart Attack - 2010, Hx Hypercholesterolemia, Hx Hypertension Pulmonary Medical History: Denies: Hx Asthma, Hx Bronchitis, Hx COPD, Hx Pneumonia Neurological Medical History: Denies: Hx Cerebrovascular Accident, Hx Seizures Endocrine Medical History: Reports: Hx Diabetes Mellitus Type 2 Renal/ Medical History: Denies: Hx Peritoneal Dialysis Malignancy Medical History: Reports: Hx Breast Cancer GI Medical History: Reports: Hx Gastroesophageal Reflux Disease Musculoskeletal Medical History: Reports Hx Arthritis - degenerative Psychiatric Medical History: Reports: Hx Depression Past Surgical History: Reports: Hx Breast Surgery - right lumpectomy, Hx Cardiac Catheterization - stent, Hx Section - x 2, Hx Orthopedic Surgery - [facility]ST. Denies: Hx Pacemaker - Immunizations Hx Diphtheria, Pertussis, Tetanus Vaccination: No Hx Pneumococcal Vaccination: 07/07/12 Review of Systems - Review of Systems Constitutional: No symptoms reported EENT: No symptoms reported Cardiovascular: No symptoms reported Respiratory: No symptoms reported Gastrointestinal: No symptoms reported Genitourinary: No symptoms reported Female Genitourinary: No symptoms reported Musculoskeletal: No symptoms reported Skin: No symptoms reported Neurological/Psychological: No symptoms reported Physical Exam - Vital signs Vitals: Temp Pulse Resp BP Pulse Ox 98.6 F 81 16 208/86 H 96 11/29/18 13:06 11/29/18 13:06 11/29/18 13:06 11/29/18 13:06 11/29/18 13:06 - Notes Notes: Vital signs reviewed, please refer to chart. Patient is normocephalic, atrau matic. Pupils equal round, reactive to light. Neck is supple without meningismus. Negative Kernig's and Brudzinski's. She does have paraspinal musculature tenderness noted at the base of the occiput down to C4 on the right. She is also markedly tender to palpation over the right trapezius and right sternocleidomastoid muscles.. This does reproduce her head pain. Heart is regular rate and rhythm. Lungs are clear to auscultation bilaterally. Abdomen is soft, nontender, normoactive bowel sounds throughout. Extremities without cyanosis, clubbing, edema. Peripheral pulses are equal. Skin is warm and dry. Patient is awake, alert, oriented x3. Cranial nerves II through XII are grossly intact without focal neurological deficits. Strength is plus 5 out of 5 bilateral upper and lower extremities. Reflexes are symmetrical, sensation is intact. Intact finger nose finger, rapid alternating movements, heel to mixon. Course - Re-evaluation Re-evalutation: 11/29/18 16:02 Patient presents to the emergency department for evaluation of a headache. It was gradual in onset it is been present for several days. It is reproduced with pressure in certain muscles. It certainly seems to be a likely tension headache. Patient was treated here with Robaxin and had some further improvement. We did discuss her blood pressure at length. I strongly encouraged her to take her medications as prescribed, even with just a small amount of food. She did actually have them with her here, took some, and blood pressure did lower significantly. Patient was concerned about an intracranial process. CT scan of the head was ordered and found to be unremarkable. She is to continue her home medications, we will send her home with a small amount of Robaxin. She is to return to the emergency department with worsening or new c oncerning symptoms of any sort. - Vital Signs Vital signs: Temp Pulse Resp BP Pulse Ox 98.7 F 79 18 133/73 H 97 11/29/18 15:27 11/29/18 15:27 11/29/18 15:27 11/29/18 15:27 11/29/18 15:27 - Laboratory Result Diagrams: 11/29/18 13:35 11/29/18 13:35 Laboratory results interpreted by me: 11/29/18 11/29/18 11/29/18 13:35 13:35 13:35 MCH 26.6 L RDW 16.9 H Glucose 122 H Calcium 10.7 H Urine Blood SMALL H Ur Leukocyte Esterase SMALL H Discharge - Discharge Clinical Impression: Tension headache Condition: Stable Disposition: HOME, SELF-CARE Instructions: Headache ([facility]) Additional Instructions: Take Robaxin as needed. Moist heat to the painful areas. Follow-up with your doctor next week. Return to the emergency department with worsening or new co ncerning symptoms of any sort. Forms: Elevated Blood Pressure Referrals: BUTCH DIAZ MD [Primary Care Provider] - Follow up as needed
== END 2018-11-29 16:10 | disposition home or self-care (01) ==
LOC: ER 12:58
DX: G44.209 Tension-type headache, unspecified, not intractable (principal); I50.9 Heart failure, unspecified; I48.91 Unspecified atrial fibrillation; E78.00 Pure hypercholesterolemia, unspecified; I11.0 Hypertensive heart disease with heart failure; E11.9 Type 2 diabetes mellitus without complications; Z88.0 Allergy status to penicillin; Z88.6 Allergy status to analgesic agent; I25.2 Old myocardial infarction
CPT/HCPCS: 99284; 96372; 36415; 85025; 80053; 81001; 70450; A9270 ×2; J0780; J3490

== ENCOUNTER 2018-12-08 14:09 | Emergency (ER) | payer MEDICARE, MEDICAID ==
--- NOTE | 2018-12-08 14:41 | ER Document Report ---
ED Medical Screen (RME) - General Chief Complaint: Palpitations Stated Complaint: HEART RACING Time Seen by Provider: 12/08/18 14:34 Primary Care Provider: BUTCH DIAZ MD [Primary Care Provider] - Follow up as needed Mode of Arrival: Ambulatory Information source: Patient Notes: Patient is a 63-year-old female with past medical history of atrial fibrillation who presents to the emergency department with complaints of palpitations. Patient reports that she takes Coumadin and Coreg. She sees Dr. Shahid for cardiology. She reports intermittent chest pain and shortness of breath. Heart rate fluctuating between 50 and 160 in triage. Exam: Patient alert, oriented and in no acute distress answering all questions. Lung sounds are clear and equal bilaterally. Heart rate irregular. I have greeted and performed a rapid initial assessment of this patient. A comprehensive ED assessment and evaluation of the patient, analysis of test results and completion of the medical decision making process will be conducted by additional ED providers. Dictation of this chart was performed using voice recognition software; therefore, there may be some unintended grammatical errors. TRAVEL OUTSIDE OF THE [place] IN LAST 30 DAYS: No - Related Data Allergies/Adverse Reactions: naproxen [From Naprosyn] Allergy (Severe, Verified 12/08/18 14:10) FEELS "ON FIRE" Penicillins Allergy (Intermediate, Verified 12/08/18 14:10) broke out in white blisters niacin [Niacin] Allergy (Mild, Verified 12/08/18 14:10) "on fire" oxycodone HCl [From Percocet] Allergy (Mild, Verified 12/08/18 14:10) itchy propoxyphene napsylate [From Darvocet-N 100] Allergy (Mild, Verified 12/08/18 14:10) itchy Past Medical History - Social History Family history: None, Other - NEG DVT/PE - Past Medical History Cardiac Medical History: Reports: Hx Atrial Fibrillation, Hx Congestive Heart Failure, Hx Coronary Artery Disease, Hx Heart Attack - 2010, Hx Hypercholesterolemia, Hx Hypertension Pulmonary Medical History: Denies: Hx Asthma, Hx Bronchitis, Hx COPD, Hx Pneumonia Neurological Medical History: Denies: Hx Cerebrovascular Accident, Hx Seizures Endocrine Medical History: Reports: Hx Diabetes Mellitus Type 2 Renal/ Medical History: Denies: Hx Peritoneal Dialysis Malignancy Medical History: Reports: Hx Breast Cancer GI Medical History: Reports: Hx Gastroesophageal Reflux Disease Musculoskeltal Medical History: Reports Hx Arthritis - degenerative Psychiatric Medical History: Reports: Hx Depression Past Surgical History: Reports: Hx Breast Surgery - right lumpectomy, Hx Cardiac Catheterization - stent, Hx Section - x 2, Hx Orthopedic Surgery - [facility]ION [facility]ST. Denies: Hx Pacemaker - Immunizations Hx Diphtheria, Pertussis, Tetanus Vaccination: No History of Influenza Vaccine for 06/2017 - 11/2017 Season: No Doctor's Discharge - Discharge Referrals: BUTCH DIAZ MD [Primary Care Provider] - Follow up as needed
[2018-12-08 15:44] LABS: ABSOLUTE EOSINOPHILS # (AUTO) 0.2 10^3/uL (0.0-0.6); ABSOLUTE LYMPHOCYTES (AUTO) 1.3 10^3/uL (0.5-4.7); ABSOLUTE MONOCYTES (AUTO) 0.6 10^3/uL (0.1-1.4); ABSOLUTE NEUT (AUTO) 3.7 10^3/uL (1.7-8.2); BASOPHILS % (AUTO) 0.4 % (0-2); EOSINOPHILS % (AUTO) 3.8 % (0-6); HEMOGLOBIN 12.7 g/dL (12.0-15.5); LYMPHOCYTES % (AUTO) 22.2 % (13-45); MEAN CORPUSCULAR HGB CONC 33.3 g/dL (32.0-36.0); MEAN CORPUSCULAR VOLUME 81 fl (80-97); MONOCYTES % (AUTO) 10.6 % (3-13); PLATELET COUNT 306 10^3/uL (150-450); RED BLOOD COUNT 4.68 10^6/uL (3.72-5.28); RED CELL DISTRIBUTION WIDTH 15.8 % (11.5-14.0); TOTAL CELLS COUNTED % (AUTO) 100 %; WHITE BLOOD COUNT 5.8 10^3/uL (4.0-10.5)
--- NOTE | 2018-12-08 15:46 | RADIOLOGY REPORT (SQ) ---
EXAM DESCRIPTION: CHEST SINGLE VIEW COMPLETED DATE/TIME: 12/08/2018 3:29 pm REASON FOR STUDY: chest pain COMPARISON: 12/27/2013 EXAM PARAMETERS: NUMBER OF VIEWS: One view. TECHNIQUE: Single frontal radiographic view of the chest acquired. RADIATION DOSE: NA LIMITATIONS: None. FINDINGS: LUNGS AND PLEURA: No opacities, masses or pneumothorax. No pleural effusion. MEDIASTINUM AND HILAR STRUCTURES: No masses. Contour normal. HEART AND VASCULAR STRUCTURES: Borderline cardiomegaly, stable finding. Normal vasculature. BONES: No acute findings. HARDWARE: None in the chest. OTHER: No other significant finding. IMPRESSION: 1. No significant interval changes since the previous examination dated 12/27/2013. No acute findings. TECHNICAL DOCUMENTATION: JOB ID: [id number] [employer]- All Rights Reserved Reading location - IP/workstation name: [email or web address]
--- NOTE | 2018-12-08 16:01 | ER Document Report ---
ED General - General Chief Complaint: Palpitations Stated Complaint: HEART RACING Time Seen by Provider: 12/08/18 14:34 Primary Care Provider: DEVAN ORNELAS MD [ACTIVE STAFF] - Follow up tomorrow BUTCH DIAZ MD [Primary Care Provider] - Follow up in 3-5 days Mode of Arrival: Ambulatory Information source: Patient, Relative, [facility] Records Notes: 63-year-old female TRAVEL OUTSIDE OF THE [place] IN LAST 30 DAYS: No - Related Data Allergies/Adverse Reactions: naproxen [From Naprosyn] Allergy (Severe, Verified 12/08/18 14:10) FEELS "ON FIRE" Penicillins Allergy (Intermediate, Verified 12/08/18 14:10) broke out in white blisters niacin [Niacin] Allergy (Mild, Verified 12/08/18 14:10) "on fire" oxycodone HCl [From Percocet] Allergy (Mild, Verified 12/08/18 14:10) itchy propoxyphene napsylate [From Darvocet-N 100] Allergy (Mild, Verified 12/08/18 14:10) itchy Past Medical History - General Information source: Patient - Social History Smoking Status: Never Smoker Chew tobacco use (# tins/day): No Frequency of alcohol use: None Drug Abuse: None Lives with: Family Family History: CAD, Other - No FH of DVT/PE Patient has suicidal ideation: No Patient has homicidal ideation: No - Past Medical History Cardiac Medical History: Reports: Hx Atrial Fibrillation, Hx Congestive Heart Failure, Hx Coronary Artery Disease, Hx Heart Attack - 2009, Hx Hypercholesterolemia, Hx Hypertension Pulmonary Medical History: Denies: Hx Asthma, Hx Bronchitis, Hx COPD, Hx Pneumonia Neurological Medical History: Denies: Hx Cerebrovascular Accident, Hx Seizures Endocrine Medical History: Reports: Hx Diabetes Mellitus Type 2 Renal/ Medical History: Denies: Hx Peritoneal Dialysis Malignancy Medical History: Reports: Hx Breast Cancer GI Medical History: Reports: Hx Gastroesophageal Reflux Disease Musculoskeletal Medical History: Reports Hx Arthritis - degenerative Psychiatric Medical History: Reports: Hx Depression Past Surgical History: Reports: Hx Breast Surgery - right lumpectomy, Hx Cardiac Catheterization - stent, Hx Section - x 2, Hx Orthopedic Surgery - GANGLION CYST. Denies: Hx Pacemaker - Immunizations Hx Diphtheria, Pertussis, Tetanus Vaccination: No Hx Pneumococcal Vaccination: 07/07/12 Review of Systems - Review of Systems Notes: REVIEW OF SYSTEMS: CONSTITUTIONAL : Denies fever, chills, or sweats. Denies recent illness. Denies weight loss, recent hospitalizations. EENT: Denies visual changes, eye pain. Denies sore throat, oral lesions, difficulty swallowing. CARDIOVASCULAR: Chest pain, palpitations, lower extremity edema+ RESPIRATORY: Denies cough. Denies shortness of breath, wheezing. GASTROINTESTINAL: Denies abdominal pain or distention. Denies nausea, vomiting, or diarrhea. Denies blood in vomitus, stools, or per rectum. Denies black, tarry stools. Denies constipation. GENITOURINARY: Denies difficulty urinating, painful urination, frequency, blood in urine, or vaginal discharge. MUSCULOSKELETAL: Denies back or neck pain or stiffness. Denies joint pain or swelling. SKIN: Denies rash, lesions or sores. HEMATOLOGIC : Denies easy bruising or bleeding. LYMPHATIC: Denies swollen glands. NEUROLOGICAL: Denies confusion or altered mental status. Denies loss of consciousness. Denies dizziness or lightheadedness. Denies headache. Denies weakness or paralysis. Denies problems difficulty with ambulation, slurred speech. Denies sensory loss, numbness, or tingling. Denies seizures. PSYCHIATRIC: Denies anxiety or stress. Denies depression, suicidal ideation, or homicidal ideation. Denies visual or auditory hallucinations. Physical Exam - Vital signs Vitals: Resp Pulse Ox 22 H 99 12/08/18 15:22 12/08/18 15:22 - Notes Notes: PHYSICAL EXAMINATION: GENERAL: Well-appearing, well-nourished and in no acute distress. HEAD: Atraumatic, normocephalic. EYES: Pupils equal round and reactive to light, extraocular movements intact, conjunctiva are normal. ENT: Nares patent, oropharynx clear without exudates. Moist mucous membranes. NECK: Normal range of motion, supple without lymphadenopathy LUNGS: Breath sounds clear to auscultation bilaterally and equal. No wheezes rales or rhonchi. HEART: irregular rhythm, regular rate ABDOMEN: Soft, nontender, nondistended abdomen. No guarding, no rebound. No masses appreciated. Female : deferred Musculoskeletal: Normal range of motion, no pitting or edema. No cyanosis. NEUROLOGICAL: Cranial nerves grossly intact. Normal speech, normal gait. Normal sensory, motor exams PSYCH: Normal mood, normal affect. SKIN: Warm, Dry, normal turgor, no rashes or lesions noted. Course - Re-evaluation Re-evalutation: 12/08/18 17:22 63-year-old female with a history of atrial fibrillation presents with complaint of palpitations, chest pain that started just prior to arrival. EKG was obtained and showed the patient to be in atrial fibrillation with RVR with a heart rate of 120. This resolved without intervention and patient has a current heart rate upon discharge of 65. Patient reports resolution of her palpitations and chest pain. Cardiac enzymes are within normal limits. Thyroid levels also within normal limits. I did speak to Dr. Ornelas the patient's vp compliance and reviewed the patient's laboratory findings and physical exam findings. He believes the patient is safe for discharge home with follow-up with him tomorrow morning. He does recommend an increase of her Coreg 25 mg twice daily to 3 times daily. I did discuss this with the patient and her family members and the y do express understanding. Patient states that she is not going to follow-up with him tomorrow unless she does not feel well. She does agree to at least call the office and arrange for sooner follow-up. - Vital Signs Vital signs: Temp Pulse Resp BP Pulse Ox 98.4 F 17 120/73 97 12/08/18 17:42 12/08/18 17:40 12/08/18 17:40 12/08/18 17:40 - Laboratory Result Diagrams: 12/08/18 15:11 12/08/18 15:11 Laboratory results interpreted by me: 12/08/18 12/08/18 12/08/18 15:11 15:11 15:11 RDW 15.8 H Chloride 108 H Calcium 10.4 H Magnesium 1.5 L TSH 12/08/18 15:11 RDW Chloride Calcium Magnesium TSH 0.40 L - Diagnostic Test Radiology reviewed: Image reviewed, Reports reviewed - EKG Interpretation by Me Rate: Tachycardia Rhythm: A.Fib When compared to previous EKG there are: Changes noted Discharge - Discharge Clinical Impression: Atrial fibrillation with RVR, Chronic atrial fibrillation, Palpitations Atrial fibrillation Qualifiers: Atrial fibrillation type: chronic Qualified Code(s): I48.2 - Chronic atrial fibrillation Hypertension Qualifiers: Hypertension type: unspecified Qualified Code(s): I10 - Essential (primary) hypertension Condition: Good Disposition: HOME, SELF-CARE Instructions: Atrial Fibrillation ([facility]), Palpitations (Irregular or Rapid Heartrate) ([facility]) Additional Instructions: Please follow-up with your vp compliance Dr. Ornelas tomorrow. I did speak to him and he recommends increasing her Coreg 25 mg to 3 times daily. Follow up with your [id number] hours for further care or return to the ED IMMEDIATELY if symptoms worsen or you have any concerns. If you cannot afford to follow up with your primary care physician a list of low cost clinics have been provided at the end of your discharge papers as well. Most prescribed medications have multiple side effects. The safest thing to do is when filling your prescription speak to your pharmacist regarding possible interactions with your normal home medications and over the counter medications such as Ibuprofen, Tylenol, Benadryl. If you experience any symptoms that cause you discomfort or concern you should discontinue the medication immediately and return to the emergency room or call your primary care physician. Forms: Elevated Blood Pressure Referrals: BUTCH DIAZ MD [Primary Care Provider] - Follow up in 3-5 days DEVAN ORNELAS MD [ACTIVE STAFF] - Follow up tomorrow
[2018-12-08 16:02] LABS: ANISOCYTOSIS SLIGHT; OVALOCYTES SLIGHT; SCHISTOCYTES SLIGHT; TOXIC GRANULATION SLIGHT
[2018-12-08 16:03] LABS: PLATELET COMMENT ADEQUATE
[2018-12-08 16:06] LABS: ALANINE AMINOTRANSFERASE 22 U/L (9-52); ALKALINE PHOSPHATASE 85 U/L (38-126); ANION GAP 10 (5-19); ASPARTATE AMINO TRANSFERASE 18 U/L (14-36); BILIRUBIN,DIRECT 0.3 mg/dL (0.0-0.4); BILIRUBIN,TOTAL 0.4 mg/dL (0.2-1.3); BLOOD UREA NITROGEN 15 mg/dL (7-20); CALCIUM 10.4 mg/dL (8.4-10.2); CARBON DIOXIDE 27 mmol/L (22-30); CHLORIDE 108 mmol/L (98-107); GLUCOSE 110 mg/dL (75-110); POTASSIUM 4.1 mmol/L (3.6-5.0); SODIUM 144.6 mmol/L (137-145)
[2018-12-08 16:32] LABS: PHOSPHORUS 2.6 mg/dL (2.5-4.5)
[2018-12-08 16:51] LABS: FREE T3 3.71 pg/mL (2.77-5.27); FREE T4 (FREE THYROXINE) 1.07 ng/dL (0.78-2.19)
[2018-12-08 17:04] LABS: THYROID STIMULATING HORMONE 0.4 uIU/mL (0.47-4.68)
[2018-12-08 17:43] VITALS: BP 120/73
--- NOTE | 2018-12-08 19:50 | EKG REPORT ---
SEVERITY:- ABNORMAL ECG - ATRIAL FIBRILLATION, V-RATE 47-79 BORDERLINE LEFT AXIS DEVIATION ABNORMAL T, CONSIDER ISCHEMIA, LATERAL LEADS : Confirmed by: Jeff Tafoya MD 08-Dec-2018 19:49:37
--- NOTE | 2018-12-08 19:51 | EKG REPORT ---
SEVERITY:- ABNORMAL ECG - ATRIAL FIBRILLATION PROBABLE LVH WITH SECONDARY REPOL ABNRM BORDERLINE PROLONGED QT INTERVAL : Confirmed by: Jeff Tafoya MD 08-Dec-2018 19:50:06
== END 2018-12-08 17:49 | disposition home or self-care (01) ==
LOC: ER 14:09
DX: I48.2 Chronic atrial fibrillation (principal); R00.2 Palpitations; I48.91 Unspecified atrial fibrillation; I50.9 Heart failure, unspecified; I25.10 Atherosclerotic heart disease of native coronary artery without angina pectoris; E78.00 Pure hypercholesterolemia, unspecified; I11.0 Hypertensive heart disease with heart failure; E11.9 Type 2 diabetes mellitus without complications; I25.2 Old myocardial infarction; Z88.6 Allergy status to analgesic agent; Z88.0 Allergy status to penicillin
CPT/HCPCS: 36415; 71045; 80053; 83735; 83880; 84100; 84439; 84443; 84481; 84484; 85025; 93005; 93010; 99285

== ENCOUNTER → 2019-04-05 | Outpatient (CLI) | payer MEDICARE, MEDICAID ==
--- NOTE | 2019-04-05 13:41 | WOMENS IMAGING REPORT ---
EXAM DESCRIPTION: BILAT SCREENING MAMMO W/CAD COMPLETED DATE/TIME: 04/05/2019 10:59 am REASON FOR STUDY: Z12.31 ROUTINE BILATERAL SCREENING Z12.31 ENCNTR SCREEN MAMMOGRAM FOR MALIGNANT N EOPLASM OF GLENN COMPARISON: Digital diagnostic tomosynthesis bilateral mammogram dated 08/11/2017, 07/20/2016, digita l diagnostic right breast mammogram dated 10/21/2016 and digital diagnostic bilateral mammogram dated 07/04/2014. EXAM PARAMETERS: Standard craniocaudal and mediolateral oblique views of each breast recorded using digital acquisition. Read with the assistance of CAD. .[facility] - [employer], [employer] Bandsaw Tender Version 9.2 LIMITATIONS: None. FINDINGS: Findings present which are benign by mammographic criteria. No suspicious masses, calcifi cations or architectural distortion. Pertinent benign findings: Post surgical changes in the right breast at the site of previous lumpecto my. Stable calcifications in the breast. Benign mammographic findings may include one or more of the following: Smooth masses, popcorn/rim/co arse calcifications, asymmetries, post-procedure changes, and lesions with long-standing stability. IMPRESSION: BENIGN MAMMOGRAPHIC FINDINGS. BIRADS 2 BREAST DENSITY: b. There are scattered areas of fibroglandular density. BIRAD: ASSESSMENT: 2 BENIGN FINDING(S) RECOMMENDATION: 1. ROUTINE SCREENING COMMENT: The patient has been notified of the results by letter per MQSA requirements. Additional no tification policies are in place for contacting patient with suspicious or incomplete findings. Quality ID #225: The [employer] recommends an annual screening mammogram for women aged 40 years or over. This facility utilizes a reminder system to ensure that all patients receive reminder letters, and/or direct phone calls for appointments. This includes reminders for routine scr eening mammograms, diagnostic mammograms, or other Breast Imaging Interventions when appropriate. Th is patient will be placed in the appropriate reminder system. TECHNICAL DOCUMENTATION: FINDING NUMBER: (1) ASSESSMENT: (1) JOB ID: [id number] [employer] - [employer]- All Rights Reserved Reading location - IP/workstation name: [email or web address]
== END ==
LOC: WI 10:36
PROVIDERS: ATTEND Nurse Practitioner Family
DX: Z12.31 Encounter for screening mammogram for malignant neoplasm of breast (principal)
CPT/HCPCS: 77067

== ENCOUNTER → 2020-04-11 | Outpatient (CLI) | payer MEDICARE, MEDICAID ==
--- NOTE | 2020-04-11 13:33 | WOMENS IMAGING REPORT ---
EXAM DESCRIPTION: 3D SCREENING MAMMO BILAT IMAGES COMPLETED DATE/TIME: 04/11/2020 11:54 am REASON FOR STUDY: ENCNTR SCREEN MAMMOGRAM FOR MALIGNANT NEOPLASM OF BREAST Z12.31 ENCNTR SCREEN CELIA MOGRAM FOR MALIGNANT NEOPLASM OF GLENN COMPARISON: 04/05/2019, 08/11/2017, 10/21/2016 EXAM PARAMETERS: Standard craniocaudal and mediolateral oblique views of each breast recorded using digital acquisition and breast tomosynthesis. Read with the assistance of CAD. .[facility] - Client Relationship Consultant Version 9.2 LIMITATIONS: None. FINDINGS: Findings present which are benign by mammographic criteria. No suspicious masses, calcific ations or architectural distortion. Pertinent benign findings: Benign-morphology calcifications are again seen bilaterally. Posttreatmen t changes of the right breast. Benign mammographic findings may include one or more of the following: Smooth masses, popcorn/rim/coa rse calcifications, asymmetries, post-procedure changes, and lesions with long-standing stability. IMPRESSION: BENIGN MAMMOGRAPHIC FINDINGS. BIRADS 2 BREAST DENSITY: b. There are scattered areas of fibroglandular density. BIRAD: ASSESSMENT: 2 BENIGN FINDING(S) RECOMMENDATION: ROUTINE SCREENING COMMENT: The patient has been notified of the results by letter per [place] requirements. Additional no tification policies are in place for contacting patient with suspicious or incomplete findings. Quality ID #225: The [employer] recommends an annual screening mammogram for women aged 40 years or over. This facility utilizes a reminder system to ensure that all patients receive reminder letters, and/or direct phone calls for appointments. This includes reminders for routine scr eening mammograms, diagnostic mammograms, or other Breast Imaging Interventions when appropriate. Th is patient will be placed in the appropriate reminder system. TECHNICAL DOCUMENTATION: FINDING NUMBER: (1) ASSESSMENT: (1) JOB ID: [id number] 2010 [employer]- All Rights Reserved Reading location - IP/workstation name: [email or web address]
== END ==
LOC: WI 11:08
PROVIDERS: ATTEND Physician Assistant Medical
DX: Z12.31 Encounter for screening mammogram for malignant neoplasm of breast (principal)
CPT/HCPCS: 77063; 77067

== ENCOUNTER 2020-05-12 12:59 | Emergency (ER) | payer MEDICARE, MEDICAID ==
--- NOTE | 2020-05-12 13:30 | ER Document Report ---
ED Medical Screen (RME) - General Chief Complaint: Chest Pain Stated Complaint: CHEST PAIN Time Seen by Provider: 05/12/20 13:21 Primary Care Provider: BUTCH DIAZ MD [Primary Care Provider] - Follow up as needed TRAVEL OUTSIDE OF THE [place] IN LAST 30 DAYS: No - HPI Notes: 05/12/20 13:29 I performed a brief medical screening exam on the patient determined that the patient needs further evaluation and management by main side provider. I have placed initial orders to help expedite care. 65-year-old female to the emergency department with complaints of midsternal chest pain that radiates through her back and down her arm that began about 12:10 PM today. She states she was in doing anything but cooking in her home. She admits to nausea but no vomiting. Denies any diaphoresis. She has a significant past medical history for atrial fibrillation, heart attack in 2009 with 1 stent. She states that she takes Coreg, hydralazine and couple other blood pressure medicines that she cannot remember off the top of her head. She does take a blood thinner. She has not taken an aspirin this morning. Her retail service technician is Dr. Shahid. - Related Data Allergies/Adverse Reactions: naproxen [From Naprosyn] Allergy (Severe, Verified 05/12/20 13:27) FEELS "ON FIRE" Penicillins Allergy (Intermediate, Verified 05/12/20 13:27) broke out in white blisters niacin [Niacin] Allergy (Mild, Verified 05/12/20 13:27) "on fire" oxycodone HCl [From Percocet] Allergy (Mild, Verified 05/12/20 13:27) itchy propoxyphene napsylate [From Darvocet-N 100] Allergy (Mild, Verified 05/12/20 13:27) itchy Past Medical History - Social History Family history: None, Other - Past Medical History Cardiac Medical History: Reports: Hx Atrial Fibrillation, Hx Congestive Heart Failure, Hx Coronary Artery Disease, Hx Heart Attack - 2009, Hx Hyper cholesterolemia, Hx Hypertension Pulmonary Medical History: Denies: Hx Asthma, Hx Bronchitis, Hx COPD, Hx Pneumonia Neurological Medical History: Denies: Hx Cerebrovascular Accident, Hx Seizures Endocrine Medical History: Reports: Hx Diabetes Mellitus Type 2 Renal/ Medical History: Denies: Hx Peritoneal Dialysis Malignancy Medical History: Reports: Hx Breast Cancer GI Medical History: Reports: Hx Gastroesophageal Reflux Disease Musculoskeltal Medical History: Reports Hx Arthritis - degenerative Psychiatric Medical History: Reports: Hx Depression Past Surgical History: Reports: Hx Breast Surgery - right lumpectomy, Hx Cardiac Catheterization - stent, Hx Section - x 2, Hx Orthopedic Surgery - GANGLION CYST. Denies: Hx Pacemaker - Immunizations Hx Diphtheria, Pertussis, Tetanus Vaccination: No Physical Exam - Vital signs Vitals: Temp Pulse Resp BP Pulse Ox 99.2 F 74 16 167/82 H 99 05/12/20 13:20 05/12/20 13:20 05/12/20 13:20 05/12/20 13:20 05/12/20 13:20 Course - Vital Signs Vital signs: Temp Pulse Resp BP Pulse Ox 99.2 F 74 16 167/82 H 99 05/12/20 13:20 05/12/20 13:20 05/12/20 13:20 05/12/20 13:20 05/12/20 13:20 Doctor's Discharge - Discharge Referrals: BUTCH DIAZ MD [Primary Care Provider] - Follow up as needed
[2020-05-12 13:56] LABS: ABSOLUTE EOSINOPHILS # (AUTO) 0.1 10^3/uL (0.0-0.6); ABSOLUTE LYMPHOCYTES (AUTO) 1.2 10^3/uL (0.5-4.7); ABSOLUTE MONOCYTES (AUTO) 0.6 10^3/uL (0.1-1.4); ABSOLUTE NEUT (AUTO) 5.1 10^3/uL (1.7-8.2); BASOPHILS % (AUTO) 0.6 % (0-2); EOSINOPHILS % (AUTO) 1.9 % (0-6); HEMATOCRIT 41.9 % (36.0-47.0); HEMOGLOBIN 14.2 g/dL (12.0-15.5); LYMPHOCYTES % (AUTO) 16.7 % (13-45); MEAN CORPUSCULAR HEMOGLOBIN 28.8 pg (27.0-33.4); MEAN CORPUSCULAR HGB CONC 33.8 g/dL (32.0-36.0); MEAN CORPUSCULAR VOLUME 85 fl (80-97); MONOCYTES % (AUTO) 9.1 % (3-13); PLATELET COUNT 226 10^3/uL (150-450); RED BLOOD COUNT 4.92 10^6/uL (3.72-5.28); RED CELL DISTRIBUTION WIDTH 13.8 % (11.5-14.0); SEGMENTED NEUTROPHILS % (AUTO) 71.7 % (42-78); TOTAL CELLS COUNTED % (AUTO) 100 %; WHITE BLOOD COUNT 7.1 10^3/uL (4.0-10.5)
[2020-05-12 14:04] LABS: INTERNATIONAL RATION (INR) 1.97; PROTHROMBIN TIME 22.5 SEC (11.4-15.4)
[2020-05-12 14:05] LABS: PARTIAL THROMBOPLASTIN TIME 42.2 SEC (23.5-35.8)
[2020-05-12 14:14] LABS: ALBUMIN 4.1 g/dL (3.5-5.0); ALKALINE PHOSPHATASE 82 U/L (38-126); ANION GAP 8 (5-19); ASPARTATE AMINO TRANSFERASE 24 U/L (14-36); BILIRUBIN,DIRECT 0.3 mg/dL (0.0-0.4); BILIRUBIN,TOTAL 0.8 mg/dL (0.2-1.3); BLOOD UREA NITROGEN 17 mg/dL (7-20); CALCIUM 9.7 mg/dL (8.4-10.2); CARBON DIOXIDE 25 mmol/L (22-30); CHLORIDE 107 mmol/L (98-107); GLUCOSE 141 mg/dL (75-110); POTASSIUM 4.4 mmol/L (3.6-5.0); TOTAL PROTEIN 6.7 g/dL (6.3-8.2)
--- NOTE | 2020-05-12 14:20 | RADIOLOGY REPORT (SQ) ---
EXAM DESCRIPTION: CHEST SINGLE VIEW IMAGES COMPLETED DATE/TIME: 05/12/2020 2:03 pm REASON FOR STUDY: chest pain, SOB, nausea, leg swelling COMPARISON: Chest x-ray 12/08/2018, 06/04/2018. EXAM PARAMETERS: NUMBER OF VIEWS: One view. TECHNIQUE: Single frontal radiographic view of the chest acquired. RADIATION DOSE: NA LIMITATIONS: The patient is rotated. FINDINGS: LUNGS AND PLEURA: No consolidation, pneumothorax or pleural effusion. MEDIASTINUM AND HILAR STRUCTURES: Stable. HEART AND VASCULAR STRUCTURES: The heart is enlarged. No overt vascular congestion. BONES: No acute findings. HARDWARE: None in the chest. IMPRESSION: Cardiomegaly. Otherwise, no acute radiographic finding in the chest. TECHNICAL DOCUMENTATION: JOB ID: [id number] 2010 [employer]- All Rights Reserved Reading location - IP/workstation name: [email or web address]
[2020-05-12 14:25] LABS: NT PRO BNP 2030 pg/mL (<125)
[2020-05-12 14:26] LABS: TROPONIN I < 0.012 ng/mL
--- NOTE | 2020-05-12 16:09 | ER Document Report ---
ED General - General Chief Complaint: Chest Pain Stated Complaint: CHEST PAIN Time Seen by Provider: 05/12/20 13:21 Primary Care Provider: BUTCH DIAZ MD [Primary Care Provider] - Follow up as needed Notes: This 65-year-old woman presents to the emergency department with a complaint of palpitations, chest pain and rapid heartbeat. She has a history of atrial fibrillation, CHF, hypertension, CAD, increased BMI, hypercholesterolemia. Her symptoms began at about 12 10 in the afternoon she was in her kitchen cooking. She states that the pain went through to her back and into and down her left arm. She denies diaphoresis, dizziness or syncope. She did have an episode of nausea without vomiting. She is presently taking Coumadin, last INR proximally 1 month ago. 5-year-old female to the emergency department with complaints of midsternal chest pain that radiates through her back and down her arm she has a history of CAD and history of stent x1. TRAVEL OUTSIDE OF THE [place] IN LAST 30 DAYS: No - Related Data Allergies/Adverse Reactions: naproxen [From Naprosyn] Allergy (Severe, Verified 05/12/20 13:27) FEELS "ON FIRE" Penicillins Allergy (Intermediate, Verified 05/12/20 13:27) broke out in white blisters niacin [Niacin] Allergy (Mild, Verified 05/12/20 13:27) "on fire" oxycodone HCl [From Percocet] Allergy (Mild, Verified 05/12/20 13:27) itchy propoxyphene napsylate [From Darvocet-N 100] Allergy (Mild, Verified 05/12/20 13:27) itchy Past Medical History - Social History Smoking Status: Never Smoker Family History: CAD, Other Patient has homicidal ideation: No - Past Medical History Cardiac Medical History: Reports: Hx Atrial Fibrillation, Hx Congestive Heart Fa ilure, Hx Coronary Artery Disease, Hx Heart Attack - 2010, Hx Hypercholesterolemia, Hx Hypertension Pulmonary Medical History: Denies: Hx Asthma, Hx Bronchitis, Hx COPD, Hx Pneumonia Neurological Medical History: Denies: Hx Cerebrovascular Accident, Hx Seizures Endocrine Medical History: Reports: Hx Diabetes Mellitus Type 2 Renal/ Medical History: Denies: Hx Peritoneal Dialysis Malignancy Medical History: Reports: Hx Breast Cancer GI Medical History: Reports: Hx Gastroesophageal Reflux Disease Musculoskeletal Medical History: Reports Hx Arthritis - degenerative Psychiatric Medical History: Reports: Hx Depression Past Surgical History: Reports: Hx Breast Surgery - right lumpectomy, Hx Cardiac Catheterization - stent, Hx Section - x 2, Hx Orthopedic Surgery - GANGLION CYST. Denies: Hx Pacemaker - Immunizations Hx Diphtheria, Pertussis, Tetanus Vaccination: No Hx Pneumococcal Vaccination: 07/07/12 Review of Systems - Review of Systems Notes: Constitutional: Negative for fever. HENT: Negative for sore throat. Eyes: Negative for visual changes. Cardiovascular: + Chest pain. Respiratory: Negative for shortness of breath. Gastrointestinal: + Nausea Genitourinary: Negative for dysuria. Musculoskeletal: Negative for back pain. Skin: Negative for rash. Neurological: Negative for headaches, weakness or numbness. 10 point ROS negative except as marked above and in HPI. Physical Exam - Vital signs Vitals: Temp Pulse Resp BP Pulse Ox 99.2 F 74 16 167/82 H 99 05/12/20 13:20 05/12/20 13:20 05/12/20 13:20 05/12/20 13:20 05/12/20 13:20 - Notes Notes: PHYSICAL EXAMINATION: Physical Exam: General: Morbidly obese 65-year-old woman in no acute distress HEENT: NC/AT, pupils equal round and reactive to light, MM moist,nares clear, oropharynx clear, airway patent Neck: supple, no adenopathy, no masses. Good range of motion Lungs: clear, no wheezing, no rales no rhonchi CVS: Irregularly irregular rate and rhythm no murmur gallop or rub Abdomen: Soft, active, nontender, no masses, no hepatosplenomegaly Ext: 2+ edema in the lower legs, ankle and feet Neuro: Alert and responsive, moving all 4 extremities on command, cranial nerves intact, no focal findings Skin: Intact no open lesions, no rash PSYCH: Normal mood, normal affect. Course - Re-evaluation Re-evalutation: 05/12/20 22:34 Patient was seen in the emergency department after an episode of chest discomfort. She has a known history of CHF hypertension and CAD. Initial troponin 0.012, repeat 0.022, and a third troponin was performed, 0.012. The patient is symptom-free and is ready for discharge. Encouraged her to contact her doctor on Wednesday for a reevaluation and adjustment of medications if needed. The patient is also aware that she may return to the emergency department if her symptoms are recurrent or worsening. - Vital Signs Vital signs: Temp Pulse Resp BP Pulse Ox 99.2 F 74 22 H 135/93 H 99 05/12/20 13:20 05/12/20 13:20 05/12/20 14:01 05/12/20 14:01 05/12/20 14:01 - Laboratory Result Diagrams: 05/12/20 13:46 05/12/20 13:46 Laboratory results interpreted by me: 05/12/20 05/12/20 05/12/20 13:46 13:46 13:46 PT 22.5 H APTT 42.2 H Glucose 141 H NT-Pro-B Natriuret Pep 2030 H 05/12/20 16:15 I have reviewed laboratory data and used this information for the treatment decisions regarding the patient. - Diagnostic Test Radiology reviewed: Image reviewed, Reports reviewed Radiology results interpreted by me: 05/12/20 16:15 Chest x-ray: Cardiomegaly, no CHF/or edema 05/12/20 22:40 - EKG Interpretation by Me Rhythm: A.Fib - EKG interpreted by Dr. Pascual: Atrial fibrillation, rate 116, ventricular ectopy, + LVH with repolarization abnormality, Q waves in II,III and F, likely old IMI age indeterminate, no acute ST or T wave abnormalities, no ischemic findings, compared to a January/2020 EKG no significant EKG changes. Discharge - Discharge Clinical Impression: Chest pain with high risk of acute coronary syndrome, Morbid (severe) obesity with alveolar hypoventilation, Chronic atrial fibrillation, Diabetes mellitus type 2 in obese Condition: Good Disposition: HOME, SELF-CARE Instructions: Angina Episode ([facility]) Additional Instructions: You were seen in the emergency department today with an episode of chest pain which was likely an anginal episode. The troponin which is a measure of the heart muscle enzyme is normal. You are being discharged home to follow-up with your outpatient physicians. Please call on Wednesday to schedule an appointment for an adjustment in your medications as needed. If your symptoms are worsening or if you have other concerns you may return to the emergency department for further evaluation and treatment HOME CARE INSTRUCTIONS & INFORMATION: Thank you for choosing us for your medical needs. We hope you're satisfied with the care you received. After you leave, you must properly care for your problem and, at the same time, observe its progress. Any condition can change. Some illnesses can change rapidly over hours or days. If your condition worsens, return to the Emergency Department or see your physician promptly. ABOUT YOUR X-RAYS AND EKG'S: If you had an EKG or X-rays taken, they have been read by the Emergency Physician. The X-rays and EKG's will also be read by a Radiologist or Poolroom Table Attendant within 24 hours. If discrepancies are noted, you will be notified by telephone. Please be certain the ED has a correct telephone number & address where you can be reached. Also, realize that some fractures or abnormalities do not show up on initial X-rays. If your symptoms continue, see your physician. ABOUT YOUR LABORATORY TEST: If you had laboratory tests, the results have been reviewed by the Emergency Physician. Some test results (for example cultures) may not be available for several days. You will be contacted if any test result shows you need additional treatment. Please be certain the ED has a correct telephone number and address where you can be reached. ABOUT YOUR MEDICATIONS: You will receive instructions on how to take your medicine on the prescription label you receive. Additional information may be provided by the Pharmacy. If you have questions afterwards, call the ED for clarification or further instructions. Some prescribed medications may cause drowsiness. Do not perform tasks such as driving a car or operating machinery without consulting your Pharmacist. If you feel you need a refill of pain medication, your condition will need re-evaluation. Please do not call for a refill of any medication. ABOUT YOUR SIGNATURE: Signature of this document acknowledges to followin. Understanding that you received emergency treatment and that you may be released before al medical problems are known or treated. Please be certain the ED has a correct phone number & address where you can be reached. 2. Acknowledgement that you will arrange for follow-up care as recommended. 3. Authorization for the Emergency Physician to provide information to your follow-up Physician in order to maximize your care. AT ANY TIME, IF YOUR SYMPTOMS CHANGE SIGNIFICANTLY OR WORSEN OR YOU DEVELOP NEW SYMPTOMS, RETURN TO THE EMERGENCY DEPARTMENT IMMEDIATELY FOR RE-EVALUATION. OUR GOAL IS TO PROVIDE EXCELLENT MEDICAL CARE! WE HOPE THAT WE HAVE MET YOUR EXPECTATIONS DURING YOUR EMERGENCY DEPARTMENT VISIT AND THAT YOU FEEL YOU HAVE RECEIVED EXCELLENT CARE! Referrals: BUTCH DIAZ MD [Primary Care Provider] - Follow up as needed
[2020-05-12] MEDS ORDERED: FUROSEMIDE INJ/PF 20 MG/2 ML SDV IV ONE (16:19)
--- NOTE | 2020-05-12 18:34 | EKG REPORT ---
SEVERITY:- ABNORMAL ECG - ATRIAL FIBRILLATION VENTRICULAR PREMATURE COMPLEX PROBABLE LVH WITH SECONDARY REPOL ABNRM PROBABLE INFERIOR INFARCT, OLD : Confirmed by: Jeff Tafoya MD 12-May-2020 18:33:32
[2020-05-12 23:05] VITALS: BP 144/65
== END 2020-05-12 23:07 | disposition home or self-care (01) ==
LOC: ER 12:59
DX: I24.9 Acute ischemic heart disease, unspecified (principal); R07.9 Chest pain, unspecified; E66.2 Morbid (severe) obesity with alveolar hypoventilation; I48.20 Chronic atrial fibrillation, unspecified; E11.9 Type 2 diabetes mellitus without complications; R00.2 Palpitations; I25.10 Atherosclerotic heart disease of native coronary artery without angina pectoris; I11.0 Hypertensive heart disease with heart failure; I50.9 Heart failure, unspecified; E78.00 Pure hypercholesterolemia, unspecified; M79.602 Pain in left arm; M54.9 Dorsalgia, unspecified; Z88.8 Allergy status to other drugs, medicaments and biological substances; Z88.0 Allergy status to penicillin
CPT/HCPCS: 93005; 99285; 96374; 36415; 83735; 85025; 85610; 85730; 80053; 84484; 83880; 71045; 93010; J1940